=== PATIENT | female | born 1960 | race Caucasian/White ===

== ENCOUNTER 2020-02-20 05:57 | Inpatient (IN) | payer SELFPAY ==
[2020-02-20] VITALS (23 sets, daily range): BP systolic 95–165; BP diastolic 51–103
[~2020-02-20] VITALS: Ht 168 cm; Wt 94.6 kg
[~2020-02-20 05:57] MED LIST: ASP81TEC PO; LORA10TA76 PO; SEASONAL ALLERGY MED
--- NOTE | 2020-02-20 06:02 | ED Dyspnea ---
General Stated Complaint: SOB,WHEEZING Source of Information: Patient Exam Limitations: No Limitations History of Present Illness Date Seen by Provider: Feb 20, 2020 Time Seen by Provider: 06:02 Initial Comments 59-year-old female presents with shortness of breath. Patient reports shortness of breath has been going on for 2 weeks and has been worsening. Patient has had increasing leg swelling for 2 weeks. When EMS arrived patient's oxygen was in the mid 70s. She was placed on a nonrebreather and oxygen increased to the mid- 90s. He has some wheezing. She denies any fevers chills. Patient roommate works at [employer] however has been tested negative for COVID. Patient's history of present illness is limited based on her respiratory distress. Allergies and Home Medications Allergies Coded Allergies: No Known Drug Allergies (Verified , 01/22/09) Home Medications Loratadine 10 Mg Tablet, 10 MG PO DAILY PRN for ALLERGIES, (Reported) NEEDED FOR ALLERGIES Patient Home Medication List Home Medication List Reviewed: Yes Review of Systems Review of Systems Constitutional: No chills, No fever; weight gain EENTM: no symptoms reported Respiratory: cough, short of breath, wheezing Cardiovascular: No chest pain; edema Gastrointestinal: no symptoms reported Musculoskeletal: other (3+ edema ) Skin: no symptoms reported Past Rtxluna-Qxqain-Vvzikc Hx Past Med/Social Hx: Reviewed Nursing Past Med/Soc Hx Past Medical History Reproductive Disorders: Yes (CERVICAL CANCER) Sexually Transmitted Disease: No Uterine Physical Exam Vital Signs Vital Signs - First Documented 02/20/20 05:58 Temp 35.8 Pulse 88 Resp 41 B/P (MAP) 168/100 (122) Pulse Ox 90 O2 Delivery Non Rebreather O2 Flow Rate 15.00 Capillary Refill : Height, Weight, BMI Height: 5'6.00" Weight: 144lbs. 5.0oz. 65.820431wm; BMI Method:Stated General Appearance: Moderate Distress, Obese HEENT: PERRL/EOMI, Moist Mucous Membranes Neck: Full Range of Motion Respiratory: Decreased Breath Sounds, Wheezing (diffuse ) Cardiovascular: Tachycardia Gastrointestinal: Distended Extremity: Normal Range of Motion, Swelling (3+ edema ) Neurologic/Psychiatric: Alert, Oriented x3, No Motor/Sensory Deficits Skin: Other (venous stasis changes ) Focused Exam Lactate Level 02/20/20 06:00: Lactic Acid Level 1.77 Lactic Acid Level Laboratory Tests Test 02/20/20 06:00 Lactic Acid Level 1.77 MMOL/L (0.50-2.00) Progress/Results/Core Measures Results/Orders Lab Results Laboratory Tests Test 02/20/20 06:00 02/20/20 06:20 02/20/20 06:40 02/20/20 06:41 Range/Units White Blood Count 21.8 H 4.3-11.0 10^3/uL Red Blood Count 5.01 4.35-5.85 10^6/uL Hemoglobin 14.9 11.5-16.0 G/DL Hematocrit 49 35-52 % Mean Corpuscular Volume 97 80-99 FL Mean Corpuscular Hemoglobin 30 25-34 PG Mean Corpuscular Hemoglobin Concent 31 L 32-36 G/DL Red Cell Distribution Width 20.1 H 10.0-14.5 % Platelet Count 182 130-400 10^3/uL Mean Platelet Volume 9.5 7.4-10.4 FL Neutrophils (%) (Auto) 82 H 42-75 % Lymphocytes (%) (Auto) 8 L 12-44 % Monocytes (%) (Auto) 10 0-12 % Eosinophils (%) (Auto) 0 0-10 % Basophils (%) (Auto) 0 0-10 % Neutrophils # (Auto) 17.8 H 1.8-7.8 X 10^3 Lymphocytes # (Auto) 1.8 1.0-4.0 X 10^3 Monocytes # (Auto) 2.1 H 0.0-1.0 X 10^3 Eosinophils # (Auto) 0.1 0.0-0.3 10^3/uL Basophils # (Auto) 0.0 0.0-0.1 10^3/uL Neutrophils % (Manual) 83 % Lymphocytes % (Manual) 1 % Monocytes % (Manual) 10 % Eosinophils % (Manual) 1 % Band Neutrophils 5 % Nucleated Red Blood Cells 4 Polychromasia SLIGHT Anisocytosis SLIGHT Prothrombin Time 16.1 H 12.2-14.7 SEC INR Comment 1.2 0.8-1.4 Activated Partial Thromboplast Time 36 H 24-35 SEC Fibrinogen 438 221-496 MG/DL Sodium Level 109 *L 135-145 MMOL/L Potassium Level 5.8 H 3.6-5.0 MMOL/L Chloride Level 72 L 98-107 MMOL/L Carbon Dioxide Level 27 21-32 MMOL/L Anion Gap 10 5-14 MMOL/L Blood Urea Nitrogen 11 7-18 MG/DL Creatinine 0.55 L 0.60-1.30 MG/DL Estimat Glomerular Filtration Rate > 60 BUN/Creatinine Ratio 20 Glucose Level 111 H 70-105 MG/DL Lactic Acid Level 1.77 0.50-2.00 MMOL/L Calcium Level 8.7 8.5-10.1 MG/DL Corrected Calcium 9.3 8.5-10.1 MG/DL Total Bilirubin 1.4 H 0.1-1.0 MG/DL Aspartate Amino Transf (AST/SGOT) 42 H 5-34 U/L Alanine Aminotransferase (ALT/SGPT) 16 0-55 U/L Alkaline Phosphatase 247 H 40-136 U/L Lactate Dehydrogenase 292 H 125-220 U/L Troponin I 0.066 H <0.028 NG/ML C-Reactive Protein High Sensitivity 14.58 H 0.00-0.50 MG/DL B-Type Natriuretic Peptide 918.5 H <100.0 PG/ML Total Protein 7.3 6.4-8.2 GM/DL Albumin 3.3 3.2-4.5 GM/DL Blood Gas Puncture Site LEFT RADIAL Blood Gas Patient Temperature 35.8 Arterial Blood pH 7.35 L 7.37-7.43 Arterial Blood Partial Pressure CO2 58 H 35-45 MMHG Arterial Blood Partial Pressure O2 97 H 79-93 MMHG Arterial Blood HCO3 32 H 23-27 MMOL/L Arterial Blood Total CO2 33.7 H 21.0-31.0 MMOL/L Arterial Blood Oxygen Saturation 98 94-100 % Arterial Blood Base Excess 6.2 H -2.5-2.5 MMOL/L Benjie Test YES-POS Blood Gas Ventilator Setting NO Blood Gas Inspired Oxygen 100% Urine Opiates Screen POSITIVE H NEGATIVE Urine Oxycodone Screen NEGATIVE NEGATIVE Urine Methadone Screen NEGATIVE NEGATIVE Urine Propoxyphene Screen NEGATIVE NEGATIVE Urine Barbiturates Screen NEGATIVE NEGATIVE Ur Tricyclic Antidepressants Screen NEGATIVE NEGATIVE Urine Phencyclidine Screen NEGATIVE NEGATIVE Urine Amphetamines Screen NEGATIVE NEGATIVE Urine Methamphetamines Screen NEGATIVE NEGATIVE Urine Benzodiazepines Screen NEGATIVE NEGATIVE Urine Cocaine Screen NEGATIVE NEGATIVE Urine Cannabinoids Screen NEGATIVE NEGATIVE Urine Color YELLOW Urine Clarity CLEAR Urine pH 6.0 5-9 Urine Specific Preston 1.020 1.016-1.022 Urine Protein NEGATIVE NEGATIVE Urine Glucose (UA) NEGATIVE NEGATIVE Urine Ketones NEGATIVE NEGATIVE Urine Nitrite NEGATIVE NEGATIVE Urine Bilirubin NEGATIVE NEGATIVE Urine Urobilinogen 1.0 < = 1.0 MG/DL Urine Leukocyte Esterase NEGATIVE NEGATIVE Urine RBC (Auto) NEGATIVE NEGATIVE Urine RBC NONE /HPF Urine WBC RARE /HPF Urine Squamous Epithelial Cells 0-2 /HPF Urine Crystals NONE /LPF Urine Bacteria NEGATIVE /HPF Urine Casts NONE /LPF Urine Mucus NEGATIVE /LPF Urine Culture Indicated NO My Orders Orders - GARY,DOUG L DO Vital Signs: Every 4 Hours (Or (02/20/20 06:02) Monitor-Rhythm Ecg Trace Only (02/20/20 06:02) Cbc With Automated Diff (02/20/20 06:02) Comprehensive Metabolic Panel (02/20/20 06:02) Ferritin (02/20/20 06:02) LDH (02/20/20 06:02) Hs C Reactive Protein (02/20/20 06:02) Troponin I (02/20/20 06:02) Lactic Acid Analyzer (02/20/20 06:02) Protime With Inr (02/20/20 06:02) Partial Thromboplastin Time (02/20/20 06:02) Fibrinogen (02/20/20 06:02) Ekg Tracing (02/20/20 06:02) Chest 1 View, Ap/Pa Only (02/20/20 06:02) Arterial Blood Gas (02/20/20 06:02) Albuterol/Ipra Inhalation Soln (Duoneb I (02/20/20 06:15) Bipap (Bilevel) Set Up (02/20/20 06:02) BNP (02/20/20 06:02) Nitroglycerin 0.4 Mg Btl 25's (Nitrostat (02/20/20 06:15) Furosemide Injection (Lasix Injection) (02/20/20 06:15) Coronavirus Sars-Cov-2 So 2018 (02/20/20 06:06) Manual Differential (02/20/20 06:00) Dexamethasone Injection (Decadron Inject (02/20/20 06:45) Ceftriaxone For Iv Use (Rocephin For I (02/20/20 06:32) Sodium Chloride 3% (Hypertonic Sodium Ch (02/20/20 07:00) Ed Iv/Invasive Line Start (02/20/20 06:47) Catheter(Urinary) Insert & Ass 03,15 (02/20/20 06:47) Ua Culture If Indicated (02/20/20 06:47) Abdomen/Kub 1view (02/20/20 07:06) Medications Given in ED Current Medications Medications Dose Ordered Sig/Kristofer Route Start Time Stop Time Status Last Admin Dose Admin Albuterol/ Ipratropium 3 ml ONCE PRN IH 02/20/20 06:15 02/20/20 08:21 DC 02/20/20 06:15 3 ML Dexamethasone Sodium Phosphate 10 mg ONCE ONCE IV 02/20/20 06:45 02/20/20 06:46 DC 02/20/20 06:49 10 MG Furosemide 40 mg ONCE ONCE IVP 02/20/20 06:15 02/20/20 06:16 DC 02/20/20 06:15 40 MG Nitroglycerin 0.4 mg ONCE ONCE SL 02/20/20 06:15 02/20/20 06:16 DC 02/20/20 06:15 0.4 MG Vital Signs/I&O 02/20/20 02/20/20 02/20/20 02/20/20 05:58 06:15 06:30 06:42 Temp 35.8 Pulse 88 92 96 89 Resp 41 34 32 40 B/P (MAP) 168/100 (122) 165/101 (122) 136/80 (98) Pulse Ox 90 95 97 97 O2 Delivery Non Rebreather Non Rebreather NIV Bilevel O2 Flow Rate 15.00 15.00 100.00 90.00 02/20/20 02/20/20 02/20/20 02/20/20 06:45 07:00 07:15 07:30 Pulse 89 91 87 85 Resp 30 32 31 16 B/P (MAP) 137/75 (95) 126/91 (103) 122/74 (90) 120/61 (80) Pulse Ox 96 97 98 97 O2 Delivery NIV Bilevel NIV Bilevel NIV Bilevel Room Air O2 Flow Rate 90.00 90.00 02/20/20 02/20/20 07:45 08:00 Pulse 88 92 Resp 18 16 B/P (MAP) 139/103 (115) 134/70 (91) Pulse Ox 97 98 O2 Delivery NIV Bilevel NIV Bilevel Progress Progress Note : Time: 08:00 Progress Note Patient with severe hypo natremia along with respiratory distress, CHF. Patient to be admitted to the ICU on BiPAP, we will give her a small dose of 3% saline along with some Lasix. Patient was transferred in stable but critical condition. Initial ECG Impression Date: Feb 20, 2020 Initial ECG Impression Time: 06:38 Initial ECG Rhythm: Normal Sinus Initial ECG Impression: Nonspecific Changes Diagnostic Imaging Diagonstic Imaging: Xray Plain Films/CT/US/NM/MRI: chest Comments [facility] [place] NAME: ADOLPH LEON [facility] REC#: [id number] PT STATUS: REG ER : 1960 PHYSICIAN: DOUG GARY DO ADMIT DATE: 02/20/20/ER Draft Date of Exam:02/20/20 CHEST 1 VIEW, AP/PA ONLY INDICATION: COVID-19 Portable chest shows cardiomegaly with vascular congestion. There are Zainab B lines present. There is a right-sided effusion. All of these represent a change from a prior study from 11/27/2013 and have the appearance consistent with congestive failure. COVID-19 can cause interstitial infiltrates and effusions and follow-up is recommended. IMPRESSION: There is cardiomegaly with mild vascular congestion. There are interstitial infiltrates and a right-sided effusion with differential as described. Report was faxed to Chris Jenkins/RN Infection Control [facility] by ben at 6:47AM. Reviewed: Reviewed by Me, Reviewed/Discussed Departure Communication (Admissions) Time/Spoke to Admitting Phy: 08:00 Okay to admit to ICU, consult Time/Spoke to Consulting Phy: 08:[address] aCtalan and made him aware of patient in ICU Impression Primary Impression: Acute respiratory failure with hypoxia Additional Impressions: Congestive heart failure Qualified Codes: I50.9 - Heart failure, unspecified Anasarca Disposition: ADMITTED INPATIENT Condition: Critical Admissions Decision to Admit Reason: Admit from ER (General) Decision to Admit/Date: Feb 20, 2020 Time/Decision to Admit Time: 08:00 Departure-Patient Inst. Referrals: NO,LOCAL PHYSICIAN (PCP/Family) Primary Care Physician DOUG GARY DO Feb 20, 2020 06:02
--- OUTSIDE RECORDS SUMMARY | 2020-02-20 06:07 | XMS REPORT ---
Author Author Katerine Winchester Doctor Organization [facility] Address Unknown Phone Unavailable Care Team Providers Care Knit Tubing Dyer Name Role Phone Migration, Doctor Unavailable Unavailable PROBLEMS Type Condition ICD9-CM Code [id number] Code Onset Dates Condition S tatus SNOMED Code Problem Unspecified essential hypertension 401.9 Active 25785240 Problem Nondependent tobacco use disorder 305.1 Active 762710554 Problem Personal history of noncompliance with medical treatment Z91.19 Active 8776508 Problem Alcohol abuse F10.10 Active 253205 05 Problem Unspecified cerebral artery occlusion with cerebral in farction 434.91 Active 949451426999873 Problem Chronic hepatitis C without hepatic coma B18.2 Active 595365262 Problem Personal history of noncompl iance with medical treatment, presenting hazards to health V15.81 Active 678906184 Problem History of cerebral infarction Z86.73 Active 258353103 Problem Nondependent tobacco use disorder Z72.0 Active 16739367 Problem Essential hypertension I10 Active 00291417 Problem Hyperlipidemia E78.5 Active 79892 004 ALLERGIES No Information ENCOUNTERS Encounter Location Date Diagnosis [facility] [address] [id number] [place] [address] December, [facility] [address] [id number] [place] [address] December, Essential hypertension I10 ; Hyperlipidemia E78.5 ; Chronic hepatitis C without hepatic coma B18.2 and Alcohol abuse F10.10 [facility] [address] [id number] [place] [address] December, Essential hypertension I10 and Hyperlipidemia E78.5 [facility] AG[facility] [address] [id number] [place] [id number] Oct, [facility] [address] [id number] [place] [address] Oct, Elevated glucose R73.09 and Elevated liver function tests R94.5 [facility] [address] [address] 16 Oct, 2016 Essential hypertension I10 and History o f cerebral infarction Z86.73 [facility] [address] [id number] [place] [address] Apr, Essential hypertension I10 ; Nondependent tobacco use disorder Z72.0 ; History of cerebral infarction Z86.73 ; Personal history of noncompliance with medical treatment Z91.19 and Hyperlipidemia E78.5 [facility] REYESMISHA [address] [id number] [place] [address] Mar, [facility] [address] [id number] [place] [address] Mar, [facility] [address] [id number] [place] [address] Mar, [place] [address] [address] Jul, Blood glucose elevated R73.9 [place] [address] [address] Jul, Essential hypertension I10 ; Nondependen t tobacco use disorder Z72.0 ; History of cerebral infarction Z86.73 ; Personal history of noncompliance with medical treatment Z91.19 and Hyperlipidemia E78.5 [place] [address] [address] Jan, Unspecified essential hypertension 401.9 and Personal history of noncompliance with medical treatment, presenting hazards to health V15.81 [place] [address] [address] Nov, [place] [address] [address] Nov, [place] [address] [address] Feb, [place] [address] [address] Feb, [place] [address] [address] December, [facility] [address] [id number] [place] [address] December, [facility] [address] [id number] [place] [address] Aug, [facility] [address] [id number] [place] [address] Aug, [facility] [address] [id number] [place] [address] Jul, IMMUNIZATIONS No Known Immunizations SOCIAL HISTORY Never Assessed REASON FOR VISIT PLAN OF CARE VITAL SIGNS Height 66 in 2014-01-04 Weight 152.06 lbs 2014-01-04 Temperature 98.7 degrees Fahrenheit 2014-01-04 Heart Rate 88 bpm 2014-01-04 Respiratory Rate 20 2014-01-04 Blood pressure systolic 148 mmHg 2014-01-04 Blood pressure diastolic 82 mmHg 2014-01-04 MEDICATIONS Unknown Medications RESULTS No Results PROCEDURES No Known procedures INSTRUCTIONS MEDICATIONS ADMINISTERED No Known Medications MEDICAL (GENERAL) HISTORY Type Description Date Medical History hypertension Medical History tobaccoism Medical History Uterine/cervical cancer Medical History Stroke Medical History hepatitis C Surgical History tonsillectomy Surgical History hysterectomy Surgical History orthopedic surgery-Rt wrist rx with pins & left ankle Hospitalization History Stroke syndrome--Pt left AMA after 2 days 11-27-2013 Hospitalization History past surgeries Hospitalization History child
--- OUTSIDE RECORDS SUMMARY | 2020-02-20 06:07 | XMS REPORT ---
Author Author Katerine Winchester Doctor Organization [facility] Address Unknown Phone Unavailable Care Team Providers Care Service Desk Associate Name Role Phone Migration, Doctor Unavailable Unavailable PROBLEMS Type Condition ICD9-CM Code [id number] Code Onset Dates Condition S tatus SNOMED Code Problem Unspecified essential hypertension 401.9 Active 81594199 Problem Nondependent tobacco use disorder 305.1 Active 969738997 Problem Personal history of noncompliance with medical treatment Z91.19 Active 2728749 Problem Alcohol abuse F10.10 Active 406161 05 Problem Unspecified cerebral artery occlusion with cerebral in farction 434.91 Active 681160589302325 Problem Chronic hepatitis C without hepatic coma B18.2 Active 068952741 Problem Personal history of noncompl iance with medical treatment, presenting hazards to health V15.81 Active 596574857 Problem History of cerebral infarction Z86.73 Active 338258449 Problem Nondependent tobacco use disorder Z72.0 Active 70917591 Problem Essential hypertension I10 Active 32216162 Problem Hyperlipidemia E78.5 Active 49743 004 ALLERGIES No Information ENCOUNTERS Encounter Location Date Diagnosis [facility] [address] [id number] [place] [address] December, [facility] [address] [id number] [place] [address] December, Essential hypertension I10 ; Hyperlipide carey E78.5 ; Chronic hepatitis C without hepatic coma B18.2 and Alcohol abuse F10.10 [facility] [address] [id number] [place] [address] December, Essential hypertension I10 and Hyperlipi demia E78.5 [facility] [address] [id number] [place] [id number] Oct, [facility] [address] [id number] [place] [address] Oct, Elevated glucose R73.09 and Elevated helena er function tests R94.5 [facility] [address] [facility] [id number] [address] [place] [address] 16 Oct, 2016 Essential hypertension I10 a nd History of cerebral infarction Z86.73 [facility] [place] [address] [id number] [place] [address] 07 Apr, 2016 Essential hypertension I10 ; Nondependen t tobacco use disorder Z72.0 ; History of cerebral infarction Z86.73 ; Personal history of noncompliance with medical treatment Z91.19 and Hyperlipidemia E78.5 [facility] [address] [id number] [place] [address] Mar, [facility] [place] [address] [id number] [place] [address] Mar, [facility] [address] [id number] [place] [address] Mar, [place] [address] [place] [id number] [address] [place] [address] Jul, Blood glucose elevated R73.9 [place] [address] [facility] [id number] [address] [place] [address] 30 Jul, 2015 Essential hypertension I10 ; Nondependent tobacco use disorder Z72.0 ; History of cerebral infarction Z86.73 ; Personal history of noncompliance with medical treatment Z91.19 and Hyperlipidemia E78.5 [place] [address] [address] [facility] [id number] [address] [place] [address] Jan, Unspecified essential hypert ension 401.9 and Personal history of noncompliance with medical treatment, presenting hazards to health V15.81 [place] [address] [address] [facility] [id number] [address] [place] [address] Nov, [place] [address] [address] [facility] [id number] [address] [place] [address] Nov, [place] [address] [address] [place] [id number] [address] [place] [address] Feb, [place] [address] [address] [place] [id number] [address] [place] [phone] Feb, [facility] [address] [facility] [id number] [address] [place] [address] December, [facility] [address] [facility] [id number] [address] [place] [address] December, [facility] [address] [facility] [id number] [address] [place] [address] Aug, [facility] [address] [facility] [id number] [address] [place] [phone] Aug, [facility] [address] [facility] [id number] [address] [place] [phone] Jul, IMMUNIZATIONS No Known Immunizations SOCIAL HISTORY Never Assessed REASON FOR VISIT [facility] PLAN OF CARE VITAL SIGNS MEDICATIONS Unknown Medications RESULTS No Results PROCEDURES [...]
--- OUTSIDE RECORDS SUMMARY | 2020-02-20 06:07 | XMS REPORT ---
Author Author Katerine Winchester Doctor Organization [facility] Address Unknown Phone Unavailable Care Team Providers Care Criminal Defense Lawyer Name Role Phone Migration, Doctor Unavailable Unavailable PROBLEMS Type Condition ICD9-CM Code [id number] Code Onset Dates Condition S tatus SNOMED Code Problem Unspecified essential hypertension 401.9 Active 23434022 Problem Nondependent tobacco use disorder 305.1 Active 440802813 Problem Personal history of noncompliance with medical treatment Z91.19 Active 6783815 Problem Alcohol abuse F10.10 Active 708429 05 Problem Unspecified cerebral artery occlusion with cerebral in farction 434.91 Active 950528855733017 Problem Chronic hepatitis C without hepatic coma B18.2 Active 382511316 Problem Personal history of noncompl iance with medical treatment, presenting hazards to health V15.81 Active 324183950 Problem History of cerebral infarction Z86.73 Active 376940570 Problem Nondependent tobacco use disorder Z72.0 Active 57971092 Problem Essential hypertension I10 Active 94057979 Problem Hyperlipidemia E78.5 Active 09962 004 ALLERGIES No Information ENCOUNTERS Encounter Location Date Diagnosis [facility] [address] [id number] [place] [address] December, [facility] [address] [id number] [place] [address] December, Essential hypertension I10 ; Hyperlipidemia E78.5 ; Chronic hepatitis C without hepatic coma B18.2 and Alcohol abuse F10.10 [facility] [address] [id number] [place] [address] December, Essential hypertension I10 and Hyperlipidemia E78.5 [facility] AGUILERA [address] [id number] [place] [id number] Oct, [facility] [address] [id number] [place] [address] Oct, Elevated glucose R73.09 and Elevated liver function tests R94.5 [facility] [address] [address] 16 Oct, 2016 Essential hypertension I10 and History o f cerebral infarction Z86.73 [facility] ERIC [address] [id number] [place] [address] Apr, Essential hypertension I10 ; Nondependent tobacco use disorder Z72.0 ; History of cerebral infarction Z86.73 ; Personal history of noncompliance with medical treatment Z91.19 and Hyperlipidemia E78.5 [facility] REYESMISHA [address] [id number] [place] [address] Mar, [facility] ERIC [address] [id number] [place] [address] Mar, [facility] ERIC [address] [id number] [place] [address] Mar, [place] [address] [address] Jul, Blood glucose elevated R73.9 [place] [address] [address] Jul, Essential hypertension I10 ; Nondependen t tobacco use disorder Z72.0 ; History of cerebral infarction Z86.73 ; Personal history of noncompliance with medical treatment Z91.19 and Hyperlipidemia E78.5 [place] [address] [address] Jan, Unspecified essential hypertension 401.9 and Personal history of noncompliance with medical treatment, presenting hazards to health V15.81 [place] [address] [address] Nov, [place] [address] [address] Nov, [place] [address] [address] Feb, [place] [address] [address] Feb, [place] [address] [address] December, [facility] [address] [id number] [place] [address] December, [facility] [address] [id number] [place] [address] Aug, [facility] [address] [id number] [place] [address] Aug, [facility] [address] [id number] [place] [address] Jul, IMMUNIZATIONS No Known Immunizations SOCIAL HISTORY Never Assessed REASON FOR VISIT PLAN OF CARE VITAL SIGNS MEDICATIONS Unknown [...]
--- OUTSIDE RECORDS SUMMARY | 2020-02-20 06:07 | XMS REPORT ---
Author Author Katerine Winchester Doctor Organization [facility] Address Unknown Phone Unavailable Care Team Providers Care Career Technology Teacher Name Role Phone Migration, Doctor Unavailable Unavailable PROBLEMS Type Condition ICD9-CM Code [id number] Code Onset Dates Condition S tatus SNOMED Code Problem Unspecified essential hypertension 401.9 Active 08839160 Problem Nondependent tobacco use disorder 305.1 Active 040216860 Problem Personal history of noncompliance with medical treatment Z91.19 Active 2352821 Problem Alcohol abuse F10.10 Active 880543 05 Problem Unspecified cerebral artery occlusion with cerebral in farction 434.91 Active 702043949872590 Problem Chronic hepatitis C without hepatic coma B18.2 Active 697440015 Problem Personal history of noncompl iance with medical treatment, presenting hazards to health V15.81 Active 400386505 Problem History of cerebral infarction Z86.73 Active 197259417 Problem Nondependent tobacco use disorder Z72.0 Active 11632037 Problem Essential hypertension I10 Active 40801483 Problem Hyperlipidemia E78.5 Active 56392 004 ALLERGIES No Information ENCOUNTERS Encounter Location Date Diagnosis [employer] ER[address] [id number] [place] [address] December, [employer] [address] [id number] [place] [address] December, Essential hypertension I10 ; Hyperlipide carey E78.5 ; Chronic hepatitis C without hepatic coma B18.2 and Alcohol abuse F10.10 [facility] [address] [id number] [place] [address] December, Essential hypertension I10 and Hyperlipi demia E78.5 [facility] [employer] [facility] [address] [id number] [place] [id number] Oct, [facility] [address] [id number] [place] [address] Oct, Elevated glucose R73.09 and Elevated helena er function tests R94.5 [facility] [address] [facility] [id number] [address] [place] [address] 16 Oct, 2016 Essential hypertension I10 a nd History of cerebral infarction Z86.73 [facility] [place] [address] [id number] [place] [address] 07 Apr, 2016 Essential hypertension I10 ; Nondependen t tobacco use disorder Z72.0 ; History of cerebral infarction Z86.73 ; Personal history of noncompliance with medical treatment Z91.19 and Hyperlipidemia E78.5 [facility] [address] [id number] [place] [address] Mar, [facility] [place] [address] [id number] [place] [address] Mar, [facility] [address] [id number] [place] [address] Mar, [place] [address] [place] [id number] [address] [place] [address] Jul, Blood glucose elevated R73.9 [place] [address] [facility] [id number] [address] [place] [address] 30 Jul, 2015 Essential hypertension I10 ; Nondependent tobacco use disorder Z72.0 ; History of cerebral infarction Z86.73 ; Personal history of noncompliance with medical treatment Z91.19 and Hyperlipidemia E78.5 [place] [address] [facility] [id number] [address] [place] [address] Jan, Unspecified essential hypert ension 401.9 and Personal history of noncompliance with medical treatment, presenting hazards to health V15.81 [place] [address] [facility] [id number] [address] [place] [address] Nov, [place] [address] [facility] [id number] [address] [place] [address] Nov, [place] [address] [place] [id number] [address] [place] [address] Feb, [place] [address] [place] [id number] [address] [place] [address] Feb, [facility] [address] [facility] [id number] [address] [place] [address] December, [facility] [address] [facility] [id number] [address] [place] [address] December, [facility] [address] [facility] [id number] [address] [place] [address] Aug, [facility] [address] [facility] [id number] [address] [place] [address] Aug, [facility] [address] [facility] [id number] [address] [place] [address] Jul, IMMUNIZATIONS No Known Immunizations SOCIAL HISTORY Never Assessed REASON FOR VISIT [facility] [place] VITAL SIGNS MEDICATIONS Medication Instructions Dosage Frequency Start Date End Date Duration S tatus Toprol XL 25 mg take 1 tablet (25 mg) by oral route once d aily December, Active Lipitor 20 mg 1 tablet by Oral route 1 time per day at HS December, Active Aspirin 81 mg 1 tablet by Oral route 1 time per day 16 M 2013 Active RESULTS No Results PROCEDURES No Known procedures [...]
--- OUTSIDE RECORDS SUMMARY | 2020-02-20 06:08 | XMS REPORT ---
Author Author Katerine ALMANZA [facility] Address [address] [place] [address] Care Team Providers Care Plc Engineer Name Role Phone DELIO ALMANZA Unavailable PROBLEMS Type Condition ICD9-CM Code [id number] Code Onset Dates Condition S tatus SNOMED Code Problem Unspecified essential hypertension 401.9 Active 57089063 Problem Personal history of noncompliance with medical treatment Z91.19 Active 8791257 Problem Nondependent tobacco use disorder 305.1 Active 934794523 Problem Personal history of noncompl iance with medical treatment, presenting hazards to health V15.81 Active 273547088 Problem Unspecified cerebral artery occlusion with cerebral in farction 434.91 Active 367542498550615 Problem Chronic hepatitis C without hepatic coma B18.2 Active 008697762 Problem Alcohol abuse F10.10 Active 806739 05 Problem Nondependent tobacco use disorder Z72.0 Active 14231503 Problem History of cerebral infarction Z86.73 Active 028005169 Problem Hyperlipidemia E78.5 Active 45452 004 Problem Essential hypertension I10 Active 21045741 ALLERGIES No Information SOCIAL HISTORY Never Assessed PLAN OF CARE VITAL SIGNS MEDICATIONS Unknown Medications RESULTS Name Result Date Reference Range TSH 2016-11-04 TSH 1.310 0.450-4.500 CBC 2016-11-04 WBC 10.6 3.4-10.8 RBC 4.79 3.77-5.28 Hemoglobin 15.5 11.1-15.9 Hematocrit 47.8 34.0-46.6 MCV 100 79-97 MCH 32.4 26.6-33.0 MCHC 32.4 31.5-35.7 RDW 13.6 12.3-15.4 Platelets 356 150-379 Neutrophils 74 Lymphs 16 Monocytes 8 Eos 2 Basos 0 Neutrophils (Absolute) 7.8 1.4-7.0 Lymphs (Absolute) 1.7 0.7-3.1 Monocytes(Absolute) 0.8 0.1-0.9 Eos (Absolute) 0.2 0.0-0.4 Baso (Absolute) 0.0 0.0-0.2 Immature Granulocytes 0 Immature Grans (Abs) 0.0 0.0-0.1 A1C 2016-11-04 Hemoglobin A1c 5.7 4.8-5.6 LIPID PANEL 2016-11-04 Cholesterol, Total 231 100-199 Triglycerides 137 0-149 HDL Cholesterol 90 >39 VLDL Cholesterol Luke 27 5-40 LDL Cholesterol Calc 114 0-99 CMP 2016-11-04 Glucose, Serum 115 65-99 BUN 9 6-24 Creatinine, Serum 0.62 0.57-1.00 eGFR If NonAfricn Am 102 >59 eGFR If Africn Am 117 >59 BUN/Creatinine Ratio 15 9-23 Sodium, Serum 138 134-144 Potassium, Serum 4.7 3.5-5.2 Chloride, Serum 95 96-106 Carbon Dioxide, Total 22 18-29 Calcium, Serum 9.8 8.7-10.2 Protein, Total, Serum 8.0 6.0-8.5 Albumin, Serum 4.4 3.5-5.5 Globulin, Total 3.6 1.5-4.5 A/G Ratio 1.2 1.2-2.2 Bilirubin, Total 0.4 0.0-1.2 Alkaline Phosphatase, S 144 39-117 AST (SGOT) 186 0-40 ALT (SGPT) 161 0-32 HEPATITIS PROFILE 2016-11-04 Hep A Ab, IgM Negative Negative HBsAg Screen Negative Negative Hep B Core Ab, IgM Negative Negative Hep C Virus Ab >11.0 0.0-0.9 Written Authorization 2016-11-04 Written Authorization PROCEDURES Procedure Date Ordered Result Body Site ASSAY THYROID STIM HORMONE November 04, 2016 COMPLETE CBC W/AUTO DIFF WBC November 04, 2016 COMPREHEN METABOLIC PANEL November 04, 2016 LIPID PANEL November 04, 2016 VENIPUNCT, ROUTINE* November 04, 2016 IMMUNIZATIONS No Known Immunizations MEDICAL (GENERAL) HISTORY Type Description Date Medical [...]
--- OUTSIDE RECORDS SUMMARY | 2020-02-20 06:08 | XMS REPORT ---
Author Author Katerine ALMANZA [facility] eClinicalWorks Address Unknown Phone Unavailable Care Team Providers Care Knife Cutter Name Role Phone DELIO ALMANZA CP Unavailable Allergies, Adverse Reactions, Alerts Substance Reaction Event Type N.K.D.A. Info Not Available Non Drug Allergy Problems Problem Type Condition Code Onset Dates Condition Statu s Assessment Nondependent tobacco use disorder Z72.0 Active Problem Unspecified essential hypertension 401.9 Active Assessment Essential hypertension I10 Activ e Problem Nondependent tobacco use disorder Z72.0 Active Problem History of cerebral infarction Z86.73 Active Problem Essential hypertension I10 Activ e Problem Nondependent tobacco use disorder 305.1 Active Problem Unspecified cerebral artery occlusion with cerebral in farction 434.91 Active Problem Personal history of noncompliance with medical treatme nt Z91.19 Active Problem Personal history of noncompl iance with medical treatment, presenting hazards to health V15.81 Active Assessment Hyperlipidemia E78.5 Active Assessment Personal history of noncompliance with medical treatme nt Z91.19 Active Assessment History of cerebral infarction Z86.73 Active Medications Medication Code System Code Instructions Start Date End Date Status Dosage Atorvastatin Calcium [facility] [address]-43 20 MG Orally Once a day TAKE ONE TABLET BY MOUTH AT BEDTIME Aspirin [facility] [address]-57 81 mg 1 tablet b y Oral route 1 time per day Toprol XL [facility] [address]-10 25 MG Orally Once a day TAKE ONE TABLET BY MOUTH DAILY Hydrocodone-Acetaminophen [facility] [address]-18 5-325 MG Orally every 6 hrs 1 tablet as needed Procedures Procedure Coding System Code Date Office Visit, Est Pt., Level 3 CPT-4 41538 S ept 2015 Vital Signs Date/Time: Apr 28, 2016 Cardiac Monitoring Heart Rate 84 bpm Weight 169.2 lbs Height 66 in BMI 27.31 Index Blood Pressure Diastolic 60 mmHg Blood Pressure Systolic 138 mmHg Results No Known Results Summary Purpose eClinicalWorks Submission
--- OUTSIDE RECORDS SUMMARY | 2020-02-20 06:08 | XMS REPORT ---
Author Author Katerine ALMANZA [facility] Address [address] [place] [address] Care Team Providers Care Catheter Finisher And Inspector Name Role Phone DELIO ALMANZA Unavailable PROBLEMS Type Condition ICD9-CM Code [id number] Code Onset Dates Condition S tatus SNOMED Code Problem Unspecified essential hypertension 401.9 Active 10696723 Problem Personal history of noncompliance with medical treatment Z91.19 Active 7080765 Problem Nondependent tobacco use disorder 305.1 Active 424132440 Problem Personal history of noncompl iance with medical treatment, presenting hazards to health V15.81 Active 972733698 Problem Unspecified cerebral artery occlusion with cerebral in farction 434.91 Active 588029918977304 Problem Chronic hepatitis C without hepatic coma B18.2 Active 672542150 Problem Alcohol abuse F10.10 Active 063550 05 Problem Nondependent tobacco use disorder Z72.0 Active 55390792 Problem History of cerebral infarction Z86.73 Active 414334413 Problem Hyperlipidemia E78.5 Active 21263 004 Problem Essential hypertension I10 Active 21068203 ALLERGIES No Information SOCIAL HISTORY Never Assessed PLAN OF CARE Activity Details Pending Test A1C Pending Test HEPATITIS PROFILE VITAL SIGNS MEDICATIONS Unknown Medications RESULTS No Results PROCEDURES Procedure Date Ordered Result Body Site ACUTE HEPATITIS PANEL November 04, 2016 GLYCATED HEMOGLOBIN TEST November 04, 2016 IMMUNIZATIONS No Known Immunizations [...]
--- OUTSIDE RECORDS SUMMARY | 2020-02-20 06:08 | XMS REPORT ---
Author Author Katerine ALMANZA [facility] Address [address] [place] [address] Care Team Providers Care Visual Merchandiser Name Role Phone DELIO ALMANZA Unavailable PROBLEMS Type Condition ICD9-CM Code HAQ97-[id number] Code Onset Dates Condition S tatus SNOMED Code Problem Unspecified essential hypertension 401.9 Active 96822964 Problem Personal history of noncompliance with medical treatment Z91.19 Active 9410583 Problem Nondependent tobacco use disorder 305.1 Active 686838795 Problem Personal history of noncompl iance with medical treatment, presenting hazards to health V15.81 Active 911054171 Problem Unspecified cerebral artery occlusion with cerebral in farction 434.91 Active 150091954411995 Problem Chronic hepatitis C without hepatic coma B18.2 Active 054253935 Problem Alcohol abuse F10.10 Active 099861 05 Problem Nondependent tobacco use disorder Z72.0 Active 81839312 Problem History of cerebral infarction Z86.73 Active 313499406 Problem Hyperlipidemia E78.5 Active 54600 004 Problem Essential hypertension I10 Active 58838639 ALLERGIES No Known Allergies SOCIAL HISTORY Never Assessed PLAN OF CARE Activity Details Follow Up 1 Year Reason:f/u htn VITAL SIGNS Height 66 in 2016-12-28 Weight 180.7 lbs 2016-12-28 Temperature 98.1 degrees Fahrenheit 2016-12-28 Heart Rate 100 bpm 2016-12-28 Respiratory Rate 20 2016-12-28 BMI 29.16 kg/m2 2016-12-28 Blood pressure systolic 142 mmHg 2016-12-28 Blood pressure diastolic 92 mmHg 2016-12-28 MEDICATIONS Medication Instructions Dosage Frequency Start Date End Date Duration S tatus Atorvastatin Calcium 20 mg Orally Once a day TAKE ONE TABL ET BY MOUTH AT BEDTIME 24h 30 Active Hydrocodone-Acetaminophen 5-325 MG Orally every 6 hrs 1 tablet as need ed 6h Active Aspirin 81 mg 1 tablet by Oral route 1 time per day Active Toprol XL 25 MG Orally Once a day TAKE ONE TABLET BY MOUTH DAILY 24h 30 Active RESULTS No Results PROCEDURES No Known procedures IMMUNIZATIONS No Known Immunizations MEDICAL (GENERAL) HISTORY [...]
--- OUTSIDE RECORDS SUMMARY | 2020-02-20 06:08 | XMS REPORT ---
Author Author Katerine ALMANZA [facility] eClinicalWorks Address Unknown Phone Unavailable Care Team Providers Care Dental Services Director Name Role Phone DELIO ALMANZA CP Unavailable Allergies No Known Allergies Problems Problem Type Condition Code Onset Dates Condition Statu s Problem Unspecified essential hypertension 401.9 Active Problem Nondependent tobacco use disorder Z72.0 Active [...] treatment, presenting hazards to health V15.81 Active Medications Medication Code System Code Instructions Start Date End Date Status Dosage Atorvastatin Calcium [facility] [address]-59 20 mg Orally Once a day TAKE ONE TABLET BY MOUTH AT BEDTIME Toprol XL [facility] [address]-48 25 MG Orally Once a day TAKE ONE TABLET BY MOUTH DAILY Results No Known Results Summary Purpose eClinicalWorks Submission
--- OUTSIDE RECORDS SUMMARY | 2020-02-20 06:08 | XMS REPORT ---
Author Author Katerine ALMANZA [facility] eClinicalWorks Address Unknown Phone Unavailable Care Team Providers Care Delivery Motorcycle Driver Name Role Phone DELIO ALMANZA CP Unavailable Allergies No Known Allergies Problems Problem Type Condition Code Onset Dates Condition Statu s Problem Unspecified essential hypertension 401.9 Active Assessment Blood glucose elevated R73.9 Activ e Problem Nondependent tobacco use disorder [...] presenting hazards to health V15.81 Active Medications No Known Medications Results No Known Results Summary Purpose eClinicalWorks Submission
--- OUTSIDE RECORDS SUMMARY | 2020-02-20 06:08 | XMS REPORT ---
Author Author Katerine ALMANZA [facility] eClinicalWorks Address Unknown Phone Unavailable Care Team Providers Care Gift Basket Packer Name Role Phone DELIO ALMANZA CP Unavailable [...] Instructions Start Date End Date Status Dosage Toprol XL [facility] [address]-50 25 MG Orally Once a day TAKE ONE TABLET BY MOUTH DAILY Hydrocodone-Acetaminophen [facility] [address]-78 5-325 MG Orally every 6 hrs 1 tablet as needed Atorvastatin Calcium [facility] [address]-73 20 MG Orally Once a day TAKE ONE TABLET BY MOUTH AT BEDTIME Aspirin [facility] [address]-08 81 mg January 04, 2014 1 tab let by Oral route 1 time per day Procedures Procedure Coding System Code Date COMPREHEN METABOLIC PANEL CPT-4 64464 Jul ASSAY THYROID STIM HORMONE CPT-4 66240 Jul 242014 COMPLETE CBC W/AUTO DIFF WBC CPT-4 04240 Aug 20, 2015 VENIPUNCT, ROUTINE* CPT-4 15774 Aug 20, 2015 LIPID PANEL CPT-4 65528 Aug 20, 2015 Office Visit, Est Pt., Level 3 CPT-4 77824 D 2014 Vital Signs Date/Time: Aug 20, 2015 Temperature 97.6 F Weight 168.8 lbs Height 66 in BMI 27.24 Index Blood Pressure Diastolic 100 mmHg Blood Pressure Systolic 160 mmHg Cardiac Monitoring Heart Rate 80 bpm Results No Known Results Summary Purpose eClinicalWorks Submission
--- OUTSIDE RECORDS SUMMARY | 2020-02-20 06:08 | XMS REPORT ---
Author Author Katerine ALMANZA [facility] Address [address] [place] [address] Care Team Providers Care Sand Car Worker Name Role Phone DELIO ALMANZA Unavailable PROBLEMS Type Condition ICD9-CM Code [id number] Code Onset Dates Condition S tatus SNOMED Code Problem Unspecified essential hypertension 401.9 Active 11686705 Problem Personal history of noncompliance with medical treatment Z91.19 Active 9267213 Problem Nondependent tobacco use disorder 305.1 Active 349259069 Problem Personal history of noncompl iance with medical treatment, presenting hazards to health V15.81 Active 556936326 Problem Unspecified cerebral artery occlusion with cerebral in farction 434.91 Active 504862047919092 Problem Chronic hepatitis C without hepatic coma B18.2 Active 647792068 Problem Alcohol abuse F10.10 Active 154133 05 Problem Nondependent tobacco use disorder Z72.0 Active 14228439 Problem History of cerebral infarction Z86.73 Active 627935349 Problem Hyperlipidemia E78.5 Active 20570 004 Problem Essential hypertension I10 Active 84813081 ALLERGIES No Information SOCIAL HISTORY Never Assessed [...]
--- OUTSIDE RECORDS SUMMARY | 2020-02-20 06:08 | XMS REPORT | Continuity of Care Document ---
Demographics Preferred Language Unknown Marital Status Unknown Taoist Affiliation Unknown Race Unknown Ethnic Group Unknown Author Organization Unknown Address Unknown Phone Unavailable Allergies There is no data. Medications There is no data. Problems Date Dx Coded Attending Type Code Diagnosis Diagnosed By 08/17/2011 LONA HUTCHINSON DO 466.0 BRONCHITIS, ACUTE 08/17/2011 LONA HUTCHISNON DO V65.42 COUNSELING - SMOKING CESSATION 01/04/2014 LONA HUTCHINSON DO 305.1 NONDEPENDENT TOBACCO USE DISORDER 01/04/2014 LONA HUTCHINSON DO 401.9 UNSPECIFIED ESSENTIAL HYPERTENSION 01/04/2014 LONA HUTCHINSON DO 434.91 CEREBRAL ARTERY OCCLUSION UNSPECIFIED WITH CEREBRAL INFARCTION 01/04/2014 LONA HUTCHINSON DO V15.81 PERSONAL HISTORY OF NONCOMPLIANCE WITH MEDICAL TREATMENT PRESENTING HAZARDS TO HEALTH Procedures There is no data. Results Test Result Range CBC With Differential/Platelet - 7 08:55 WBC 10.6 x10E3/uL 3.4-10.8 RBC 4.79 x10E6/uL 3.77-5.28 Hemoglobin 15.5 g/dL 11.1-15.9 Hematocrit 47.8 % 34.0-46.6 MCV 100 fL 79-97 MCH 32.4 pg 26.6-33.0 MCHC 32.4 g/dL 31.5-35.7 RDW 13.6 % 12.3-15.4 Platelets 356 x10E3/uL 150-379 Neutrophils 74 % Lymphs 16 % Monocytes 8 % Eos 2 % Basos 0 % Neutrophils (Absolute) 7.8 x10E3/uL 1.4- 7.0 Lymphs (Absolute) 1.7 x10E3/uL 0.7-3.1 Monocytes(Absolute) 0.8 x10E3/uL 0.1-0.9 Eos (Absolute) 0.2 x10E3/uL 0.0-0.4 Baso (Absolute) 0.0 x10E3/uL 0.0-0.2 Immature Granulocytes 0 % Immature Grans (Abs) 0.0 x10E3/uL 0.0-0. 1 Comp. Metabolic Panel (14) - 11/04/16 08 :55 Glucose, Serum 115 mg/dL 65-99 BUN 9 mg/dL 6-24 Creatinine, Serum 0.62 mg/dL 0.57-1.00 eGFR If NonAfricn Am 102 mL/min/1.73 >59 eGFR If Africn Am 117 mL/min/1.73 >5 9 BUN/Creatinine Ratio 15 9-23 Sodium, Serum 138 mmol/L 134-144 Potassium, Serum 4.7 mmol/L 3.5-5.2 Chloride, Serum 95 mmol/L 96-106 Carbon Dioxide, Total 22 mmol/L 18-29 Calcium, Serum 9.8 mg/dL 8.7-10.2 Protein, Total, Serum 8.0 g/dL 6.0-8.5 Albumin, Serum 4.4 g/dL 3.5-5.5 Globulin, Total 3.6 g/dL 1.5-4.5 A/G Ratio 1.2 1.2-2.2 Bilirubin, Total 0.4 mg/dL 0.0-1.2 Alkaline Phosphatase, S 144 IU/L 39-117 AST (SGOT) 186 IU/L 0-40 ALT (SGPT) 161 IU/L 0-32 Lipid Panel - 11/04/16 08:55 Cholesterol, Total 231 mg/dL 100-199 Triglycerides 137 mg/dL 0-149 HDL Cholesterol 90 mg/dL >39 VLDL Cholesterol Luke 27 mg/dL 5-40 LDL Cholesterol Calc 114 mg/dL 0-99 TSH - 11/04/16 08:55 TSH 1.310 uIU/mL 0.450-4.500 Encounters ACCT No. Visit Date/Time Discharge Status Pt. Type Provider Facility Loc./Unit Complaint [id number] 11/05/2016 09:08:00 Document Registration [id number] 01/04/2014 08:41:00 01/04/2014 23:59: 59 CLS Outpatient LONA HUTCHINSON DO [id number] 11/27/2013 10:44:00 014 09:55:00 DIS Inpatient
--- OUTSIDE RECORDS SUMMARY | 2020-02-20 06:08 | XMS REPORT ---
Author Author Katerine ALMANZA [facility] [employer] Address Unknown Phone Unavailable Care Team Providers Care Coat Presser Name Role Phone DELIO ALMANZA CP Unavailable [...]
[2020-02-20] MEDS ORDERED: RT-ALBUTEROL/IPRATROPIUM 3 ML (DUONEB) VIAL IH PRN (06:15)
[2020-02-20] MEDS ORDERED: NITROGLYCERIN 0.4 MG SL TABS BTL 25'S SL ONE (06:15)
[2020-02-20] MEDS ORDERED: FUROSEMIDE 40 MG/4 ML INJ (LASIX) IVP ONE (06:15)
[2020-02-20 06:27] LABS: ABG BASE EXCESS 6.2 MMOL/L (-2.5-2.5); ABG OXYGEN SATURATION 98 % (94-100); ABG PCO2 58 MMHG (35-45); ABG PH 7.35 (7.37-7.43); ABG PO2 97 MMHG (79-93); ABG TCO2 33.7 MMOL/L (21.0-31.0)
[2020-02-20 06:28] LABS: BASOPHILS % (AUTO) 0 % (0-10); EOSINOPHILS # (AUTO) 0.1 10^3/uL (0.0-0.3); EOSINOPHILS % (AUTO) 0 % (0-10); HEMATOCRIT 49 % (35-52); HEMOGLOBIN 14.9 G/DL (11.5-16.0); LYMPHOCYTES # (AUTO) 1.8 X 10^3 (1.0-4.0); LYMPHOCYTES % (AUTO) 8 % (12-44); MEAN CORPUSCULAR HEMOGLOBIN 30 PG (25-34); MEAN CORPUSCULAR HGB CONC 31 G/DL (32-36); MEAN CORPUSCULAR VOLUME 97 FL (80-99); MEAN PLATELET VOLUME 9.5 FL (7.4-10.4); MONOCYTES # (AUTO) 2.1 X 10^3 (0.0-1.0); MONOCYTES % (AUTO) 10 % (0-12); NEUTROPHILS # (AUTO) 17.8 X 10^3 (1.8-7.8); NEUTROPHILS % (AUTO) 82 % (42-75); PLATELET COUNT 182 10^3/uL (130-400); RED CELL DISTRIBUTION WIDTH 20.1 % (10.0-14.5); WHITE BLOOD COUNT 21.8 10^3/uL (4.3-11.0)
[2020-02-20 06:29] LABS: ALLENS TEST YES-POS; INSPIRED O2 100%; PATIENT TEMP 35.8; VENTILATOR NO
[2020-02-20] MEDS ORDERED: cefTRIAXone FOR IV USE 1,000 MG in WATER (STERILE) FOR INJECTION 10 ML IV STA (06:32)
[2020-02-20 06:37] LABS: ALBUMIN 3.3 GM/DL (3.2-4.5)
[2020-02-20 06:38] LABS: CHLORIDE 72 MMOL/L (98-107); POTASSIUM 5.8 MMOL/L (3.6-5.0)
[2020-02-20 06:39] LABS: CALCIUM 8.7 MG/DL (8.5-10.1)
[2020-02-20 06:40] LABS: GLUCOSE 111 MG/DL (70-105); TOTAL PROTEIN 7.3 GM/DL (6.4-8.2)
[2020-02-20 06:41] LABS: CARBON DIOXIDE 27 MMOL/L (21-32); INR 1.2 (0.8-1.4); PROTHROMBIN TIME PATIENT 16.1 SEC (12.2-14.7); SODIUM 109 MMOL/L (135-145)
--- NOTE | 2020-02-20 06:41 | NUR ---
COVID SWAB SENT
[2020-02-20 06:42] LABS: BILIRUBIN,TOTAL 1.4 MG/DL (0.1-1.0)
[2020-02-20 06:43] LABS: ALKALINE PHOSPHATASE 247 U/L (40-136)
[2020-02-20 06:44] LABS: CREATININE SERUM 0.55 MG/DL (0.60-1.30); GFR ESTIMATED > 60
[2020-02-20 06:45] LABS: BUN/CREATININE RATIO 20
[2020-02-20] MEDS ORDERED: DEXAMETHASONE 10 MG/ML (DECADRON) 1 ML VIAL IV ONE (06:45)
--- NOTE | 2020-02-20 06:46 | Diagnostic Imaging Report ---
INDICATION: COVID-19 Portable chest shows cardiomegaly with vascular congestion. There are Zainab B lines present. There is a right-sided effusion. All of these represent a change from a prior study from 11/27/2013 and have the appearance consistent with congestive failure. COVID-19 can cause interstitial infiltrates and effusions and follow-up is recommended. IMPRESSION: There is cardiomegaly with mild vascular congestion. There are interstitial infiltrates and a right-sided effusion with differential as described. Report was faxed to Chris Jenkins/[facility] by ben at 6:47AM. Dictated by: Dictated on workstation # [id number]
[2020-02-20 06:47] LABS: ALANINE AMINOTRANSFERASE 16 U/L (0-55)
[2020-02-20 06:53] LABS: BAND NEUTROPHILS 5 %; EOSINOPHILS % (MANUAL) 1 %; LYMPHOCYTES % (MANUAL) 1 %; MONOCYTES % (MANUAL) 10 %; NEUTROPHILS % (MANUAL) 83 %
[2020-02-20 06:54] LABS: ANISOCYTOSIS SLIGHT; NUCLEATED RED BLOOD CELLS 4; POLYCHROMASIA SLIGHT
[2020-02-20] MEDS: SODIUM CHLORIDE 3% 500 ML IV SCH ×2 (07:01→10:20)
[2020-02-20 07:14] LABS: BILIRUBIN,URINE NEGATIVE (NEGATIVE); CLARITY,URINE CLEAR; COLOR,URINE YELLOW; GLUCOSE, URINE (UA) NEGATIVE (NEGATIVE); KETONES,URINE NEGATIVE (NEGATIVE); LEUKOCYTE ESTERASE ,URINE NEGATIVE (NEGATIVE); NITRITE,URINE NEGATIVE (NEGATIVE); PROTEIN,URINE NEGATIVE (NEGATIVE)
[2020-02-20 07:23] LABS: BACTERIA,URINE NEGATIVE /HPF; SQUAMOUS EPITHELIAL CELL,UR 0-2 /HPF; WBC,URINE RARE /HPF
--- OUTSIDE RECORDS SUMMARY | 2020-02-20 08:16 | XMS REPORT | Continuity of Care Document ---
Demographics Preferred Language Unknown Marital Status Unknown Jainism Affiliation Unknown Race Unknown Ethnic Group Unknown Author Organization Unknown Address Unknown Phone Unavailable Allergies There is no data. Medications There is no data. Problems Date Dx Coded Attending Type Code Diagnosis Diagnosed By 08/17/2011 LONA HUTCHINSON DO 466.0 BRONCHITIS, ACUTE 08/17/2011 LONA HUTCHINSON DO V65.42 COUNSELING - SMOKING CESSATION 01/04/2014 [...] - 11/04/16 08:55 TSH 1.310 uIU/mL 0.450-4.500 Complete blood count (CBC) with automate d white blood cell (WBC) differential - 02/20/20 06:00 Blood leukocytes automated count (number/volume) 21.8 10*3/uL 4.3-11.0 Blood erythrocytes automated count (number/volume) 5.01 10*6/uL 4.35-5.85 Venous blood hemoglobin measurement (mass/volume) 14.9 g/dL 11.5-16.0 Blood hematocrit (volume fraction) 49 % 35-52 Automated erythrocyte mean corpuscular volume 97 [ foz_us] 80-99 Automated erythrocyte mean corpuscular h emoglobin (mass per erythrocyte) 30 pg 25-34 Automated erythrocyte mean corpuscular h emoglobin concentration measurement (mass/volume) 31 g/dL 32-36 Automated erythrocyte distribution width ratio 20. 1 % 10.0- 14.5 Automated blood platelet count (count/volume) 182 10*3/uL 130-400 Automated blood platelet mean volume measurement 9.5 [foz_us] 7.4-10.4 Automated blood neutrophils/100 leukocytes 82 % 42-75 Automated blood lymphocytes/100 leukocytes 8 % 12-44 Blood monocytes/100 leukocytes 10 % 0-12 Automated blood eosinophils/100 leukocytes 0 % 0-10 Automated blood basophils/100 leukocytes 0 % 0-10 Blood neutrophils automated count (number/volume) 17.8 10*3 1.8-7.8 Blood lymphocytes automated count (number/volume) 1.8 10*3 1.0-4.0 Blood monocytes automated count (number/volume) 2. 1 10*3 0.0-1.0 Automated eosinophil count 0.1 10*3/uL 0 .0-0.3 Automated blood basophil count (count/volume) 0.0 10*3/uL 0.0-0.1 Comprehensive metabolic panel - 02/20/20 06:00 Serum or plasma sodium measurement (moles/volume) 109 mmol/L 135-145 Serum or plasma potassium measurement (moles/volume) 5.8 mmol/L 3.6-5.0 Serum or plasma chloride measurement (moles/volume) 72 mmol/L 98-107 Carbon dioxide 27 mmol/L 21-32 Serum or plasma anion gap determination (moles/volume) 10 mmol/L 5-14 Serum or plasma urea nitrogen measurement (mass/volume ) 11 mg/dL 7-18 Serum or plasma creatinine measurement (mass/volume) 0.55 mg/dL 0.60-1.30 Serum or plasma urea nitrogen/creatinine mass ratio 20 NRG Serum or plasma creatinine measurement w ith calculation of estimated glomerular filtration rate > NRG Serum or plasma glucose measurement (mass/volume) 111 mg/dL 70-105 Serum or plasma calcium measurement (mass/volume) 8.7 mg/dL 8.5-10.1 Serum or plasma total bilirubin measurement (mass/volu me) 1.4 mg/dL 0.1-1.0 Serum or plasma alkaline phosphatase allan surement (enzymatic activity/volume) 247 U/L 40-136 Serum or plasma aspartate aminotransfera se measurement (enzymatic activity/volume) 42 U/L 5-34 Serum or plasma alanine aminotransferase measurement (enzymatic activity/volume) 16 U/L 0-55 Serum or plasma protein measurement (mass/volume) 7.3 g/dL 6.4-8.2 Serum or plasma albumin measurement (mass/volume) 3.3 g/dL 3.2-4.5 CALCIUM CORRECTED 9.3 mg/dL 8.5-10.1 PT panel in platelet poor plasma by coag ulation assay - 02/20/20 06:00 Prothrombin time (PT) in platelet poor plasma by coagu lation assay 16.1 s 12.2-14.7 INR in platelet poor plasma or blood by coagulation as say 1.2 0.8-1.4 Activated partial thromboplastin time (a PTT) in platelet poor plasma bycoagulation assay - 02/20/20 06:00 Activated partial thromboplastin time (a PTT) in platelet poor plasma bycoagulation assay 36 s 24-35 Fibrinogen measurement in platelet poor plasma by coagulation assay (mass/volume) - 02/20/20 06:00 Fibrinogen measurement in platelet poor plasma by coagulation assay (mass/volume) 438 mg/dL 221-496 Blood lactic acid measurement (moles/vol ume) - 02/20/20 06:00 Blood lactic acid measurement (moles/volume) 1.77 mmol/L 0.50-2.00 Serum ragweed IgE antibody assay - 02/19 06:00 Serum ragweed IgE antibody assay 292 U/L 125-220 Serum or plasma troponin i.cardiac measu rement (mass/volume) - 02/20/20 06:00 Serum or plasma troponin i.cardiac measurement (mass/v olume) 0.066 ng/mL <0.028 Serum or plasma C reactive protein measu rement (mass/volume) - 02/20/20 06:00 Serum or plasma C reactive protein measurement (mass/v olume) 14.58 mg/dL 0.00-0.50 Manual absolute plasma cell count - 09/10 06:00 Blood monocytes/100 leukocytes 10 % NRG Manual blood segmented neutrophils/100 leukocytes 83 % NRG Blood band neutrophils/100 leukocytes 5 % NRG Manual blood lymphocytes/100 leukocytes 1 % NRG Manual eosinophils/100 leukocytes in nose 1 % NRG Blood polychromasia detection by light microscopy SLIGHT NRG Blood anisocytosis detection by light microscopy S LIGHT NRG Manual blood nucleated erythrocytes/100 leukocytes ratio 4 NRG Serum or plasma lithium measurement (mol es/volume) - 02/20/20 06:00 BNP PT 918.5 pg/mL <100.0 Arterial blood gas measurement - 0 06:20 Blood pCO2 58 mm[Hg] 35-45 Blood pO2 97 mm[Hg] 79-93 Arterial blood bicarbonate measurement (moles/volume) 32 mmol/L 23-27 Arterial blood base excess by calculation 6.2 mmol /L -2.5-2.5 Arterial blood oxygen saturation measurement 98 % 94-100 * Inhaled oxygen flow rate 100% NRG Arterial blood pH measurement with patient temperature correction 7.35 7.37-7.43 Arterial blood carbon dioxide, total measurement (mole s/volume) 33.7 mmol/L 21.0-31.0 Body site LEFT RADIAL NRG Assessment of wrist artery patency prior to arterial p uncture YES-POS NRG Setting of ventilation mode NO NR G Measurement of body temperature 35.8 NRG Complete urinalysis with reflex to cultu re - 02/20/20 06:41 Urine color determination YELLOW NRG Urine clarity determination CLEAR NR G Urine pH measurement by test strip 6.0 5-9 Specific gravity of urine by test strip 1.020 1.016-1.022 Urine protein assay by test strip, semi-quantitative NEGATIVE NEGATIVE Urine glucose detection by automated test strip NE GATIVE NEGATIVE Erythrocytes detection in urine sediment by light micr oscopy NEGATIVE NEGATIVE Urine ketones detection by automated test strip NE GATIVE NEGATIVE Urine nitrite detection by test strip NEGATIVE NEGATIVE Urine total bilirubin detection by test strip NEGA TIVE NEGATIVE Urine urobilinogen measurement by automated test strip (mass/volume) 1.0 mg/dL < = 1.0 Urine leukocyte esterase detection by dipstick NEG ATIVE NEGATIVE Automated urine sediment erythrocyte cou nt by microscopy (number/high power field) NONE NRG Automated urine sediment leukocyte count by microscopy (number/high power field) RARE NRG Bacteria detection in urine sediment by light microsco py NEGATIVE NRG Squamous epithelial cells detection in u rine sediment by light microscopy 0-2 NRG Crystals detection in urine sediment by light microsco py NONE NRG Casts detection in urine sediment by light microscopy NONE NRG Mucus detection in urine sediment by light microscopy NEGATIVE NRG Complete urinalysis with reflex to culture NO NRG Encounters ACCT No. Visit Date/Time Discharge Status Pt. Type Provider Facility Loc./Unit Complaint [id number] 11/05/2016 09:08:00 Document Registration [id number] 01/04/2014 08:41:00 01/04/2014 23:59: 59 CLS Outpatient LONA HUTCHINSON DO [id number] 11/27/2013 10:44:00 014 09:55:00 DIS Inpatient [id number] 02/20/2020 06:30:00 Document Registration
[2020-02-20] MEDS ORDERED: SODIUM CHLORIDE 3% 500 ML INJ SCH (08:30)
--- NOTE | 2020-02-20 08:39 | NUR ---
800 MLS EMPTIED OUT OF PTS LYLE. PT RESTING COMFORTABLY AT THIS TIME. VSS.
--- NOTE | 2020-02-20 08:52 | Diagnostic Imaging Report ---
INDICATION: Wheezing, shortness of air, abdominal distention FINDINGS: Sensitivity admittedly limited by body habitus and necessity for portable technique. The bowel gas pattern is grossly unremarkable and no significant air dilatation of bowel loops and no abnormal fecal loading apparent. IMPRESSION: No acute finding identified. Dictated by: Dictated on workstation # [id number]
--- NOTE | 2020-02-20 09:12 | Pulmonary Consultation ---
History of Present Illness History of Present Illness Date Seen by Provider: Feb 20, 2020 Time Seen by Provider: 09:07 Date of Admission History of Present Illness 59yo presented to ED secondary to worsening SOB an bilateral LE edema over the last 2 wks. When EMS arrived patient's oxygen was in the mid 70s. She was placed on a nonrebreather and oxygen increased to the mid-90s. Patient roommate works at [employer] however has been tested negative for COVID. Allergies and Home Medications Allergies Coded Allergies: No Known Drug Allergies (Verified , 01/22/09) Home Medications Loratadine 10 Mg Tablet, 10 MG PO DAILY PRN for ALLERGIES, (Reported) NEEDED FOR ALLERGIES Past Sqbogyr-Onyorq-Kfvbsv Hx Past Med/Social Hx: Reviewed Nursing Past Med/Soc Hx Patient Social History Alcohol Use: Occasionally Uses Alcohol Beverage of Choice: Beer Recreational Drug Use: Yes Drug of Choice: CANNIBUS Smoking Status: Current Everyday Smoker Type Used: Cigarettes 2nd Hand Smoke Exposure: Yes Recent Foreign Travel: No Contact w/Someone Who Travel: No Recent Infectious Disease Expo: No Recent Hopitalizations: No Immunizations Up To Date Tetanus Booster (TDap): Unknown Past Medical History Surgeries: Yes (HERNIA) Hysterectomy, Orthopedic, Tonsillectomy, Tubal Ligation Respiratory: Yes COPD Cardiac: Yes Hypertension Neurological: Yes Stroke : No Reproductive Disorders: Yes (CERVICAL CANCER) MAINTENANCE PIPEFITTER History: Hysterectomy Sexually Transmitted Disease: No Genitourinary: No Gastrointestinal: No Musculoskeletal: No Endocrine: No HEENT: No Cancer: Yes Uterine Psychosocial: No Integumentary: Yes (CELLULITIS) Blood Disorders: No Family Medical History Patient reports no known family medical history. Review of Systems Time Seen by Provider: 09:24 Sepsis Event Evaluation Height, Weight, BMI Height: 5'6.00" Weight: 144lbs. 5.0oz. 65.913938so; 35.00 BMI Method:Stated Exam Exam Vital Signs Date Time Temp Pulse Resp B/P (MAP) Pulse Ox O2 Delivery O2 Flow Rate FiO2 02/20/20 08:45 89 18 114/68 (83) 97 NIV Bilevel 02/20/20 08:30 97 18 115/82 (93) 97 NIV Bilevel 02/20/20 08:15 90 16 117/59 (78) 98 Room Air 02/20/20 08:00 92 16 134/70 (91) 98 NIV Bilevel 02/20/20 07:45 88 18 139/103 (115) 97 NIV Bilevel 02/20/20 07:30 85 16 120/61 (80) 97 Room Air 02/20/20 07:15 87 31 122/74 (90) 98 NIV Bilevel 02/20/20 07:00 91 32 126/91 (103) 97 NIV Bilevel 90.00 02/20/20 06:45 89 30 137/75 (95) 96 NIV Bilevel 90.00 02/20/20 06:42 89 40 97 90.00 02/20/20 06:30 96 32 136/80 (98) 97 NIV Bilevel 100.00 02/20/20 06:15 92 34 165/101 (122) 95 Non Rebreather 15.00 02/20/20 05:58 35.8 88 41 168/100 (122) 90 Non Rebreather 15.00 I & O 02/20/20 07:00 Intake Total 10 ml Balance 10 ml Height & Weight Height: 5'6.00" Weight: 144lbs. 5.0oz. 65.610414rd; 35.00 BMI Method:Stated General Appearance: Moderate Distress, Obese HEENT: PERRL/EOMI, Moist Mucous Membranes Neck: Full Range of Motion Respiratory: Decreased Breath Sounds, Wheezing (diffuse ) Cardiovascular: Tachycardia Capillary Refill: Less Than 3 Seconds Extremity: Normal Range of Motion, Swelling (3+ edema ) Neurologic/Psychiatric: Alert, Oriented x3, No Motor/Sensory Deficits Skin: Other (venous stasis changes ) Results Lab Laboratory Tests 02/20/20 06:00 Assessment/Plan Assessment/Plan Acute respiratory failure -BiPAP -Monitor close in ICU -Check echocardiogram once out of COVID isolation CHF AE with right > L pleural effusion -Continue Lasix Pneumonia -Check PCT -Continue Rocpehin and azithromycin -Macdonald culture -COVID is pending Hyponatremia with hyperkalemia r/o adrenal insuff -Check random cortisol -Monitor -Currently on Hypertonic saline -Repeat labs- will probably d/c hypertonic saline -Pt was given lasix in the ED RAHEL GALLO DO Feb 20, 2020 09:12
[2020-02-20] MEDS ORDERED: AZITHROMYCIN INJECTION 500 MG in NS (IVPB) 250 ML IV NR (09:15)
[2020-02-20 10:56] LABS: ABG BASE EXCESS 8.8 MMOL/L (-2.5-2.5); ABG OXYGEN SATURATION 92 % (94-100); ABG PCO2 63 MMHG (35-45); ABG PH 7.35 (7.37-7.43); ABG PO2 71 MMHG (79-93); ABG TCO2 36.4 MMOL/L (21.0-31.0)
[2020-02-20 10:57] LABS: ALLENS TEST POSITIVE; INSPIRED O2 90; PATIENT TEMP 36.7; VENTILATOR NO
[2020-02-20] MEDS ORDERED: FUROSEMIDE 40 MG/4 ML INJ (LASIX) ONE (12:23)
--- NOTE | 2020-02-20 12:30 | History & Physical-Hospitalist ---
History of Present Illness HPI/Chief Complaint Pt is a 59yoCF with no known PMH who presented to the ER due to shortness of breath. She is unable to provide me any history and all she will say is "quit" when I asked her questions. All history is obtained from the notes. Per ER note she has been having increasing lower extremity edema and shortness of breath for 2 weeks. EMS was called today and they found her to have oxygen saturations in the 70s. Non rebreather was placed and she increased to the 90s for saturation. Apparently her roommate works at [employer] and was tested for COVID and was negative. She was placed on BiPAP and admitted to the ICU for acute respiratory failure. She was also found to be hyponatremic and was start on hypertonic saline per the ER. Source: patient Date Seen 02/20/20 Time Seen by a Provider: 12:29 Attending Physician Soni Shepard MD PCP No,Local Physician Referring Physician Date of Admission Feb 20, 2020 at 08:12 Home Medications & Allergies Home Medications Reviewed patient Home Medication Reconciliation performed by pharmacy medication reconciliations plasma center technician and/or nursing. Patients Allergies have been reviewed. Allergies Allergies Coded Allergies No Known Drug Allergies (Verified01/22/09) Past Qpyuacw-Qbknlq-Yxlnme Hx Past Med/Social Hx: Reviewed Nursing Past Med/Soc Hx Patient Social History Alcohol Use: Occasionally Uses Alcohol Beverage of Choice: Beer Recreational Drug Use: Yes Drug of Choice: CANNIBUS Smoking Status: Current Everyday Smoker Type Used: Cigarettes 2nd Hand Smoke Exposure: Yes Recent Foreign Travel: No Contact w/other who traveled: No Recent Hopitalizations: No Recent Infectious Disease Expo: No Immunizations Up To Date Tetanus Booster (TDap): Unknown Past Medical History Surgeries: Hysterectomy, Orthopedic, Tonsillectomy, Tubal Ligation Cardiac: Hypertension Neurological: Stroke : No Reproductive: Yes (CERVICAL CANCER) Sexually Transmitted Disease: No Hysterectomy Cancer: Uterine History of Blood Disorders: No Family History Reviewed Nursing Family Hx Patient reports no known family medical history. No Pertinent Family Hx Review of Systems ROS-Unable to Obtain: clinical condition Constitutional: see HPI Physical Exam Physical Exam Vital Signs Vital Signs - First Documented 02/20/20 02/20/20 05:58 10:03 Temp 35.8 Pulse 88 Resp 41 B/P (MAP) 168/100 (122) Pulse Ox 90 O2 Delivery Non Rebreather O2 Flow Rate 15.00 FiO2 90 Capillary Refill : Less Than 3 Seconds Height, Weight, BMI Height: 5'6.00" Weight: 144lbs. 5.0oz. 65.702075gn; 35.00 BMI Method:Stated General Appearance: Chronically ill, Other (ill appearing) HEENT: Moist Mucous Membranes Neck: Normal Inspection, Supple Respiratory: Decreased Breath Sounds, Other (on BiPAP) Cardiovascular: Regular Rate, Rhythm, No Murmur Gastrointestinal: Normal Bowel Sounds, Non Tender, Soft Extremity: Swelling (3-4+ to above knees) Neurologic/Psychiatric: Other (arouses to verbal stimuli at first and then just says "quit" and won't participate in exam or follow commands) Skin: Normal Color, Warm/Dry Results Results/Procedures Labs Laboratory Tests 02/20/20 06:00 02/20/20 12:20 02/20/20 20:25 02/21/20 02:15 Patient resulted labs reviewed. Imaging: Reviewed Imaging Report Imaging [facility] [place] [place] NAME: ADOLPH LEON [facility] REC#: [id number] PT STATUS: ADM IN : 1960 PHYSICIAN: DOUG GARY DO ADMIT DATE: 02/20/20/ICU Signed Date of Exam:02/20/20 CHEST 1 VIEW, AP/PA ONLY INDICATION: COVID-19 Portable chest shows cardiomegaly with vascular congestion. There are Zainab B lines present. There is a right-sided effusion. All of these represent a change from a prior study from 11/27/2013 and have the appearance consistent with congestive failure. COVID-19 can cause interstitial infiltrates and effusions and follow-up is recommended. IMPRESSION: There is cardiomegaly with mild vascular congestion. There are interstitial infiltrates and a right-sided effusion with differential as described. Report was faxed to Chris Jenkins/[facility] by nilda at 6:47AM. Dictated by: Dictated on workstation # [id number] Dict: 02/20/2034 Trans: 02/20/2059 NILDA [id number] Interpreted by: SALBADOR WATT MD Electronically signed by: SALBADOR WATT MD 02/20/2059 [facility] [place] [place] NAME: ADOLPH LEON [facility] REC#: [id number] PT STATUS: ADM IN : 1960 PHYSICIAN: DOUG GARY DO ADMIT DATE: 02/20/20/ICU Draft Date of Exam:02/20/20 ABDOMEN/KUB 1VIEW INDICATION: Wheezing, shortness of air, abdominal distention FINDINGS: Sensitivity admittedly limited by body habitus and necessity for portable technique. The bowel gas pattern is grossly unremarkable and no significant air dilatation of bowel loops and no abnormal fecal loading apparent. IMPRESSION: No acute finding identified. Dictated on workstation # [id number] Dict: 02/20/20 0848 Trans: 02/20/20 0851 SUHAS [id number] Interpreted by: JUDD COOK Electronically signed by: Assessment/Plan Admission Diagnosis Acute Respiratory Failure Admission Status: Inpatient Order (span 2 midnights) Reason for Inpatient Admission: respiratory failure on BiPAP, may need intubation Assessment and Plan Acute Respiratory Failure Volume overload Elevated Troponin Infiltrates On BiPAP Called and discussed with Dr Sinclair, will await ABG and may need intubation following that Lasix given in ER Echo Cardiology consulted, appreciate recs COVID19 pending CAP coverage Hyponatremia Started on hypertonic saline by ER Will stop to avoid over correction get BMP now and base treatment off that SONI SHEPARD MD Feb 20, 2020 12:30
[2020-02-20] MEDS ORDERED: ALBUTEROL/IPRATROP (COMBIVENT RESPIMAT) 4 GM INHALER IH SCH (13:00)
[2020-02-20] MEDS ORDERED: proPOfol 200 MG/20 ML (DIPRIVAN) VIAL IV ONE (13:03)
[2020-02-20] MEDS ORDERED: CATHETER FLUSH 10 ML SYR IV PRN (13:15)
[2020-02-20 13:28] LABS: CHLORIDE 76 MMOL/L (98-107); POTASSIUM 5.2 MMOL/L (3.6-5.0)
[2020-02-20 13:29] LABS: ALBUMIN 2.9 GM/DL (3.2-4.5); CALCIUM 8.2 MG/DL (8.5-10.1)
[2020-02-20 13:30] LABS: GLUCOSE 86 MG/DL (70-105)
[2020-02-20 13:31] LABS: CARBON DIOXIDE 32 MMOL/L (21-32); TOTAL PROTEIN 6.5 GM/DL (6.4-8.2)
[2020-02-20 13:34] LABS: BUN/CREATININE RATIO 17; CREATININE SERUM 0.52 MG/DL (0.60-1.30)
[2020-02-20 13:35] LABS: ALKALINE PHOSPHATASE 226 U/L (40-136); PHOSPHORUS 2.8 MG/DL (2.3-4.7)
[2020-02-20 13:38] LABS: ALANINE AMINOTRANSFERASE 16 U/L (0-55); MAGNESIUM 1.9 MG/DL (1.6-2.4)
[2020-02-20 13:39] LABS: GFR ESTIMATED > 60
--- NOTE | 2020-02-20 13:40 | NUR ---
Spoke with pt's mother, Chris Gallegos, at this time. Pt's family states that she has 2 sons and will attempt to contact them in regards to pt's wishes due to pt's declining position at this time. Family updated via phone also during this call of respiratory status.
[2020-02-20 13:42] LABS: SODIUM 115 MMOL/L (135-145)
--- NOTE | 2020-02-20 13:52 | NUR ---
Updates provided at this time to Jose Valdes, Pt's son. Pt also has another son that Jose will try to contact at a later time. Information provided on pt's status at this time. Pt is currently refusing intubation and family made aware of situation and prognosis. Will continue to treat pt as aggressively as pt will allow at this time. Will continue to update family.
[2020-02-20] MEDS ORDERED: NS IV 1000 ML 1,000 ML ONE (13:53)
[2020-02-20 13:57] LABS: ABG BASE EXCESS 10.7 MMOL/L (-2.5-2.5); ABG OXYGEN SATURATION 87 % (94-100); ABG PCO2 60 MMHG (35-45); ABG PH 7.39 (7.37-7.43); ABG PO2 59 MMHG (79-93); ABG TCO2 37.9 MMOL/L (21.0-31.0)
[2020-02-20 13:58] LABS: ALLENS TEST POSITIVE; INSPIRED O2 90; PATIENT TEMP 36.6; VENTILATOR NO
[2020-02-20] MEDS: CATHETER FLUSH 10 ML SYR IV SCH ×2 (14:16→21:15)
[2020-02-20] MEDS: NS IV 1000 ML 1,000 ML IV SCH (14:16)
[2020-02-20 14:46] LABS: AMPHETAMINE SCREEN, URINE NEGATIVE (NEGATIVE); BARBITURATE SCREEN URINE NEGATIVE (NEGATIVE); BENZODIAZEPINES SCREEN URINE NEGATIVE (NEGATIVE); CANNABINOID SCREEN, URINE NEGATIVE (NEGATIVE); COCAINE SCREEN URINE NEGATIVE (NEGATIVE); METHADONE STAT NEGATIVE (NEGATIVE); METHAMPHETAMINE SCREEN URINE S NEGATIVE (NEGATIVE); OPIATE SCREEN URINE POSITIVE (NEGATIVE); OXYCODONE STAT NEGATIVE (NEGATIVE); PROPOXYPHENE STAT NEGATIVE (NEGATIVE); TRICYCLIC ANTIDEPRESSANTS SCRE NEGATIVE (NEGATIVE)
--- NOTE | 2020-02-20 15:30 | Consultation-Cardiology ---
HPI-Cardiology Cardiology Consultation Date of Consultation 02/20/20 Date of Admission Time Seen by Provider: 12:29 Indication: acute respiratory failure HPI 59-year-old lady with history of hypertension, has been having progressive weight gain and shortness of breath, came into the emergency room with worsening dyspnea. Had anasarca. Has been having fever. No chills. She is laying down in bed on BiPAP, unable to provide any further history. Home Medications & Allergies Allergies: Coded Allergies: No Known Drug Allergies (Verified , 01/22/09) Home Medication List Reviewed: Yes UBW-Ijyotj-Bmlgid Hx Patient Social History Marital Status: Employed/Student: employed Alcohol Use: Occasionally Uses Recreational Drug Use: Yes Drug of Choice: CANNIBUS Smoking Status: Current Everyday Smoker Type Used: Cigarettes 2nd Hand Smoke Exposure: Yes Recent Foreign Travel: No Recent Infectious Disease Expo: No Recent Hopitalizations: No Immunizations Up To Date Tetanus Booster (TDap): Unknown Past Medical History Discussed below Family Medical History Family Medical Hx Noncontributory Family History: Patient reports no known family medical history. Review of Systems-General Review of Systems Constitutional: No chills, No fever; weight gain, other (unable to provide review of system, information were obtained by reviewing her records) EENTM: no symptoms reported Respiratory: cough, short of breath, wheezing Cardiovascular: No chest pain; edema Gastrointestinal: no symptoms reported Musculoskeletal: other (3+ edema ) Skin: no symptoms reported Reviewed Test Results Reviewed Test Results Lab Laboratory Tests Test 02/20/20 06:00 02/20/20 06:20 02/20/20 06:40 02/20/20 06:41 Range/Units White Blood Count 21.8 H 4.3-11.0 10^3/uL Red Blood Count 5.01 4.35-5.85 10^6/uL Hemoglobin 14.9 11.5-16.0 G/DL Hematocrit 49 35-52 % Mean Corpuscular Volume 97 80-99 FL Mean Corpuscular Hemoglobin 30 25-34 PG Mean Corpuscular Hemoglobin Concent 31 L 32-36 G/DL Red Cell Distribution Width 20.1 H 10.0-14.5 % Platelet Count 182 130-400 10^3/uL Mean Platelet Volume 9.5 7.4-10.4 FL Neutrophils (%) (Auto) 82 H 42-75 % Lymphocytes (%) (Auto) 8 L 12-44 % Monocytes (%) (Auto) 10 0-12 % Eosinophils (%) (Auto) 0 0-10 % Basophils (%) (Auto) 0 0-10 % Neutrophils # (Auto) 17.8 H 1.8-7.8 X 10^3 Lymphocytes # (Auto) 1.8 1.0-4.0 X 10^3 Monocytes # (Auto) 2.1 H 0.0-1.0 X 10^3 Eosinophils # (Auto) 0.1 0.0-0.3 10^3/uL Basophils # (Auto) 0.0 0.0-0.1 10^3/uL Neutrophils % (Manual) 83 % Lymphocytes % (Manual) 1 % Monocytes % (Manual) 10 % Eosinophils % (Manual) 1 % Band Neutrophils 5 % Nucleated Red Blood Cells 4 Polychromasia SLIGHT Anisocytosis SLIGHT Prothrombin Time 16.1 H 12.2-14.7 SEC INR Comment 1.2 0.8-1.4 Activated Partial Thromboplast Time 36 H 24-35 SEC Fibrinogen 438 221-496 MG/DL Sodium Level 109 *L 135-145 MMOL/L Potassium Level 5.8 H 3.6-5.0 MMOL/L Chloride Level 72 L 98-107 MMOL/L Carbon Dioxide Level 27 21-32 MMOL/L Anion Gap 10 5-14 MMOL/L Blood Urea Nitrogen 11 7-18 MG/DL Creatinine 0.55 L 0.60-1.30 MG/DL Estimat Glomerular Filtration Rate > 60 BUN/Creatinine Ratio 20 Glucose Level 111 H 70-105 MG/DL Lactic Acid Level 1.77 0.50-2.00 MMOL/L Calcium Level 8.7 8.5-10.1 MG/DL Corrected Calcium 9.3 8.5-10.1 MG/DL Total Bilirubin 1.4 H 0.1-1.0 MG/DL Aspartate Amino Transf (AST/SGOT) 42 H 5-34 U/L Alanine Aminotransferase (ALT/SGPT) 16 0-55 U/L Alkaline Phosphatase 247 H 40-136 U/L Lactate Dehydrogenase 292 H 125-220 U/L Troponin I 0.066 H <0.028 NG/ML C-Reactive Protein High Sensitivity 14.58 H 0.00-0.50 MG/DL B-Type Natriuretic Peptide 918.5 H <100.0 PG/ML Total Protein 7.3 6.4-8.2 GM/DL Albumin 3.3 3.2-4.5 GM/DL Blood Gas Puncture Site LEFT RADIAL Blood Gas Patient Temperature 35.8 Arterial Blood pH 7.35 L 7.37-7.43 Arterial Blood Partial Pressure CO2 58 H 35-45 MMHG Arterial Blood Partial Pressure O2 97 H 79-93 MMHG Arterial Blood HCO3 32 H 23-27 MMOL/L Arterial Blood Total CO2 33.7 H 21.0-31.0 MMOL/L Arterial Blood Oxygen Saturation 98 94-100 % Arterial Blood Base Excess 6.2 H -2.5-2.5 MMOL/L Benjie Test YES-POS Blood Gas Ventilator Setting NO Blood Gas Inspired Oxygen 100% Urine Opiates Screen POSITIVE H NEGATIVE Urine Oxycodone Screen NEGATIVE NEGATIVE Urine Methadone Screen NEGATIVE NEGATIVE Urine Propoxyphene Screen NEGATIVE NEGATIVE Urine Barbiturates Screen NEGATIVE NEGATIVE Ur Tricyclic Antidepressants Screen NEGATIVE NEGATIVE Urine Phencyclidine Screen NEGATIVE NEGATIVE Urine Amphetamines Screen NEGATIVE NEGATIVE Urine Methamphetamines Screen NEGATIVE NEGATIVE Urine Benzodiazepines Screen NEGATIVE NEGATIVE Urine Cocaine Screen NEGATIVE NEGATIVE Urine Cannabinoids Screen NEGATIVE NEGATIVE Urine Color YELLOW Urine Clarity CLEAR Urine pH 6.0 5-9 Urine Specific [place] 1.020 1.016-1.022 Urine Protein NEGATIVE NEGATIVE Urine Glucose (UA) NEGATIVE NEGATIVE Urine Ketones NEGATIVE NEGATIVE Urine Nitrite NEGATIVE NEGATIVE Urine Bilirubin NEGATIVE NEGATIVE Urine Urobilinogen 1.0 < = 1.0 MG/DL Urine Leukocyte Esterase NEGATIVE NEGATIVE Urine RBC (Auto) NEGATIVE NEGATIVE Urine RBC NONE /HPF Urine WBC RARE /HPF Urine Squamous Epithelial Cells 0-2 /HPF Urine Crystals NONE /LPF Urine Bacteria NEGATIVE /HPF Urine Casts NONE /LPF Urine Mucus NEGATIVE /LPF Urine Culture Indicated NO Test 02/20/20 10:44 02/20/20 11:20 02/20/20 12:20 02/20/20 13:35 Range/Units Blood Gas Puncture Site LEFT RADIAL RIGHT RADIAL Blood Gas Patient Temperature 36.7 36.6 Arterial Blood pH 7.35 L 7.39 7.37-7.43 Arterial Blood Partial Pressure CO2 63 H 60 H 35-45 MMHG Arterial Blood Partial Pressure O2 71 L 59 L 79-93 MMHG Arterial Blood HCO3 34 H 36 H 23-27 MMOL/L Arterial Blood Total CO2 36.4 H 37.9 H 21.0-31.0 MMOL/L Arterial Blood Oxygen Saturation 92 L 87 L 94-100 % Arterial Blood Base Excess 8.8 H 10.7 H -2.5-2.5 MMOL/L Benjie Test POSITIVE POSITIVE Blood Gas Ventilator Setting NO NO Blood Gas Inspired Oxygen 90 90 Sodium Level 115 *L 135-145 MMOL/L Potassium Level 5.2 H 3.6-5.0 MMOL/L Chloride Level 76 L 98-107 MMOL/L Carbon Dioxide Level 32 21-32 MMOL/L Anion Gap 7 5-14 MMOL/L Blood Urea Nitrogen 9 7-18 MG/DL Creatinine 0.52 L 0.60-1.30 MG/DL Estimat Glomerular Filtration Rate > 60 BUN/Creatinine Ratio 17 Glucose Level 86 70-105 MG/DL Calcium Level 8.2 L 8.5-10.1 MG/DL Corrected Calcium 9.1 8.5-10.1 MG/DL Phosphorus Level 2.8 2.3-4.7 MG/DL Magnesium Level 1.9 1.6-2.4 MG/DL Total Bilirubin 1.0 0.1-1.0 MG/DL Aspartate Amino Transf (AST/SGOT) 46 H 5-34 U/L Alanine Aminotransferase (ALT/SGPT) 16 0-55 U/L Alkaline Phosphatase 226 H 40-136 U/L Total Protein 6.5 6.4-8.2 GM/DL Albumin 2.9 L 3.2-4.5 GM/DL Procalcitonin 0.36 H <0.10 NG/ML Physical Exam Physical Exam Vital Signs Vital Signs - First Documented 02/20/20 05:58 Temp 35.8 Pulse 88 Resp 41 B/P (MAP) 168/100 (122) Pulse Ox 90 O2 Delivery Non Rebreather O2 Flow Rate 15.00 Capillary Refill : Less Than 3 Seconds Height, Weight, BMI Height: 5'6.00" Weight: 144lbs. 5.0oz. [id number]; 35.00 BMI Method:Stated General Appearance: Chronically ill, Other (patient is lethargic, on BiPAP) HEENT: Moist Mucous Membranes Neck: Normal Inspection, Supple Respiratory: Decreased Breath Sounds, Other (on BiPAP) Cardiovascular: Regular Rate, Rhythm, No Murmur Gastrointestinal: Normal Bowel Sounds, Non Tender, Soft Extremity: Swelling (3-4+ to above knees) Neurologic/Psychiatric: Other (arouses to verbal stimuli at first and then just says "quit" and won't participate in exam or follow commands) Skin: Normal Color, Warm/Dry A/P-Cardiology Admission Diagnosis Acute respiratory failure Acute congestive heart failure, left ventricular systolic dysfunction Type II myocardial infarction Hypertension Assessment/Plan Acute respiratory failure, worsening pulmonary edema, given diuretics, questionable COVID, might require intubation Mild elevation in troponin level, no acute EKG changes, probably type II myocardial infarction secondary to hypoxemia Change in mental status, probably secondary to hypoxemia. Continue to monitor Congestive heart failure, acute left ventricular systolic dysfunction, history of left ventricular diastolic dysfunction, planning to evaluate echocardiogram. Continue on diuretics and monitor Hypertension, monitor blood pressure History of marijuana use. Noncompliant with medication JUSTINE ANNE MD Feb 20, 2020 15:30
[2020-02-20] MEDS: ALBUTEROL/IPRATROP (COMBIVENT RESPIMAT) 4 GM INHALER IH SCH ×2 (15:50→18:21)
--- NOTE | 2020-02-20 16:16 | Diagnostic Imaging Report ---
INDICATION: New PICC line placement. COMPARISON: Earlier same day. FINDINGS: Multiple frontal radiographic views of the chest were obtained and show interval placement of right upper extremity PICC line, tip of which appears to terminate within the high SVC. There is persistent cardiomegaly and pulmonary vascular congestion. There also appears to be interval increase in right-sided pleural effusion and associated airspace disease. No pneumothorax is seen on either side. IMPRESSION: 1. New right upper extremity PICC line with tip in the high SVC. 2. Persistent cardiomegaly and pulmonary vascular congestion. 3. Interval increase in right-sided pleural effusion and associated atelectasis and/or infiltrate. Dictated by: Dictated on workstation # [id number]
--- NOTE | 2020-02-20 20:31 | NUR ---
Call to E ICU Dr So to report patient pain level of 10 in her right thigh described as a burning pain. Order from for Morphine.
[2020-02-20] MEDS ORDERED: morphine INJ 4 MG/ML 1 ML (VIAL/SYRINGE) ONE (21:04)
[2020-02-20 21:08] LABS: BUN/CREATININE RATIO 15; CALCIUM 8.2 MG/DL (8.5-10.1); CARBON DIOXIDE 30 MMOL/L (21-32); CHLORIDE 77 MMOL/L (98-107); CREATININE SERUM 0.52 MG/DL (0.60-1.30); GFR ESTIMATED > 60; GLUCOSE 86 MG/DL (70-105); POTASSIUM 4.8 MMOL/L (3.6-5.0)
[2020-02-20] MEDS: morphine INJ 10 MG/ML 1ML (SYR OR VIAL) IVP PRN (21:15)
[2020-02-20 21:17] LABS: SODIUM 116 MMOL/L (135-145)
[2020-02-21] VITALS (21 sets, daily range): BP systolic 102–125; BP diastolic 59–74
[2020-02-21] MEDS: morphine INJ 10 MG/ML 1ML (SYR OR VIAL) IVP PRN ×2 (02:27→20:10)
[2020-02-21 02:39] LABS: ABG BASE EXCESS 11.3 MMOL/L (-2.5-2.5); ABG OXYGEN SATURATION 93 % (94-100); ABG PCO2 64 MMHG (35-45); ABG PH 7.38 (7.37-7.43); ABG PO2 72 MMHG (79-93); ABG TCO2 38.9 MMOL/L (21.0-31.0)
[2020-02-21 02:40] LABS: HEMOGLOBIN 13.6 G/DL (11.5-16.0); MEAN PLATELET VOLUME 9.4 FL (7.4-10.4); WHITE BLOOD COUNT 19.1 10^3/uL (4.3-11.0)
[2020-02-21 02:48] LABS: ALLENS TEST YES-POS
[2020-02-21 02:49] LABS: INSPIRED O2 85%; PATIENT TEMP 36.6; VENTILATOR NO
[2020-02-21 03:06] LABS: BUN/CREATININE RATIO 14; CALCIUM 8.3 MG/DL (8.5-10.1); CARBON DIOXIDE 28 MMOL/L (21-32); CHLORIDE 78 MMOL/L (98-107); GFR ESTIMATED > 60; GLUCOSE 95 MG/DL (70-105); POTASSIUM 4.7 MMOL/L (3.6-5.0)
[2020-02-21 03:19] LABS: SODIUM 118 MMOL/L (135-145)
[2020-02-21 03:26] LABS: PHOSPHORUS 2.6 MG/DL (2.3-4.7)
[2020-02-21 03:28] LABS: MAGNESIUM 1.9 MG/DL (1.6-2.4)
[2020-02-21] MEDS: CATHETER FLUSH 10 ML SYR IV SCH ×3 (05:38→22:03)
--- NOTE | 2020-02-21 06:01 | Pulmonary Progress Note ---
Subjective Time Seen by a Provider: 05:55 Subjective/Events-last exam Pt on BiPAP refused intubation yesterday. Sepsis Event Evaluation Height, Weight, BMI Height: 5'6.00" Weight: 144lbs. 5.0oz. 65.561354xs; 35.00 BMI Method:Stated Focused Exam Lactate Level 02/20/20 06:00: Lactic Acid Level 1.77 Exam Exam Vital Signs Date Time Temp Pulse Resp B/P (MAP) Pulse Ox O2 Delivery O2 Flow Rate FiO2 02/21/20 05:00 86 13 114/68 (83) 95 NIV Bilevel 85.00 02/21/20 04:00 87 14 109/66 (80) 94 NIV Bilevel 85.00 02/21/20 03:10 92 NIV Bilevel 85 02/21/20 03:00 87 15 118/73 (88) 93 NIV Bilevel 85.00 02/21/20 02:30 36.6 NIV Bilevel 85.00 02/21/20 02:00 89 15 111/64 (80) 94 NIV Bilevel 85.00 02/21/20 01:37 86 18 92 85.00 02/21/20 01:00 87 02/21/20 01:00 86 13 109/65 (80) 93 NIV Bilevel 85.00 02/21/20 00:00 108 35 125/74 (91) 92 NIV Bilevel 85.00 02/20/20 23:40 36.6 NIV Bilevel 85.00 02/20/20 23:40 93 NIV Bilevel 85 02/20/20 23:00 92 13 110/66 (81) 93 NIV Bilevel 85.00 02/20/20 22:00 90 8 111/67 (82) 93 NIV Bilevel 85.00 02/20/20 21:31 91 22 91 85.00 02/20/20 21:00 87 14 108/64 (79) 96 NIV Bilevel 85.00 02/20/20 20:00 36.8 124/74 (91) NIV Bilevel 85.00 02/20/20 20:00 95 NIV Bilevel 85 02/20/20 19:00 92 13 110/79 (89) 95 NIV Bilevel 90.00 02/20/20 19:00 100 02/20/20 18:22 92 22 95 85.00 02/20/20 18:00 92 26 94 NIV Bilevel 90.00 02/20/20 17:00 94 13 95 NIV Bilevel 90.00 02/20/20 16:00 NIV Bilevel 90 02/20/20 16:00 93 20 91 NIV Bilevel 90.00 02/20/20 15:50 93 24 91 85.00 02/20/20 15:00 89 13 120/74 (89) 94 NIV Bilevel 90.00 02/20/20 14:00 96 18 88 NIV Bilevel 90.00 02/20/20 13:04 92 02/20/20 13:00 94 38 88 NIV Bilevel 90.00 02/20/20 12:00 NIV Bilevel 90 02/20/20 12:00 86 15 95/75 (82) 92 NIV Bilevel 90.00 02/20/20 11:00 88 16 99/51 (67) 93 NIV Bilevel 90.00 02/20/20 10:16 92 18 125/90 (102) NIV Bilevel 90.00 02/20/20 10:15 94 02/20/20 10:03 NIV Bilevel 90 02/20/20 10:00 93 17 140/81 92 NIV Bilevel 02/20/20 09:30 90 17 113/64 (80) 93 NIV Bilevel 02/20/20 09:15 88 12 118/85 (96) 96 NIV Bilevel 02/20/20 09:00 90 16 117/66 (83) 97 NIV Bilevel 02/20/20 08:45 89 18 114/68 (83) 97 NIV Bilevel 02/20/20 08:30 97 18 115/82 (93) 97 NIV Bilevel 02/20/20 08:15 90 16 117/59 (78) 98 Room Air 02/20/20 08:00 92 16 134/70 (91) 98 NIV Bilevel 02/20/20 07:45 88 18 139/103 (115) 97 NIV Bilevel 02/20/20 07:30 85 16 120/61 (80) 97 Room Air 02/20/20 07:15 87 31 122/74 (90) 98 NIV Bilevel 02/20/20 07:00 91 32 126/91 (103) 97 NIV Bilevel 90.00 02/20/20 06:45 89 30 137/75 (95) 96 NIV Bilevel 90.00 02/20/20 06:42 89 40 97 90.00 02/20/20 06:30 96 32 136/80 (98) 97 NIV Bilevel 100.00 02/20/20 06:15 92 34 165/101 (122) 95 Non Rebreather 15.00 02/20/20 05:58 35.8 88 41 168/100 (122) 90 Non Rebreather 15.00 I & O0 02/21/20 07:00 Intake Total 450 ml Output Total 4350 ml Balance -3900 ml Height & Weight Height: 5'6.00" Weight: 144lbs. 5.0oz. 65.041410vf; 35.00 BMI Method:Stated General Appearance: Moderate Distress, Obese HEENT: PERRL/EOMI, Moist Mucous Membranes Neck: Full Range of Motion Respiratory: Decreased Breath Sounds, Wheezing (diffuse ) Cardiovascular: Tachycardia Capillary Refill: Less Than 3 Seconds Extremity: Normal Range of Motion, Swelling (3+ edema ) Neurologic/Psychiatric: Alert, Oriented x3, No Motor/Sensory Deficits Skin: Other (venous stasis changes ) Results Lab Laboratory Tests 02/20/20 06:00 02/20/20 12:20 02/20/20 20:25 02/21/20 02:15 Assessment/Plan Assessment/Plan Acute respiratory failure -BiPAP -Pt refused intubation yesterday. -Monitor close in ICU PICC line placed yesterday -Check echocardiogram once out of COVID isolation CHF AE with right > L pleural effusion -Continue Lasix 40mg BID Pneumonia -Check PCT -[place] and azithromycin -Macdonald culture -COVID is pending Hyponatremia-- improving -Monitor -Normal saline at 30cc/hr RAHEL GALLO DO Feb 21, 2020 06:01
[2020-02-21] MEDS: FUROSEMIDE 40 MG/4 ML INJ (LASIX) IVP SCH ×2 (06:16→15:46)
[2020-02-21] MEDS: cefTRIAXone FOR IV USE 1,000 MG in WATER (STERILE) FOR INJECTION 10 ML IV SCH (06:17)
[2020-02-21] MEDS: ALBUTEROL/IPRATROP (COMBIVENT RESPIMAT) 4 GM INHALER IH SCH ×4 (08:09→20:04)
[2020-02-21 08:30] LABS: ABG BASE EXCESS 13.4 MMOL/L (-2.5-2.5); ABG OXYGEN SATURATION 96 % (94-100); ABG PCO2 63 MMHG (35-45); ABG PO2 80 MMHG (79-93)
[2020-02-21 08:33] LABS: ALLENS TEST POSITIVE; INSPIRED O2 85%; PATIENT TEMP 97; VENTILATOR NO
--- NOTE | 2020-02-21 08:37 | Cardiology Progress Note ---
Subjective Date Seen by Provider: Feb 21, 2020 Time Seen by Provider: 08:36 Subjective/Events-last exam Patient is laying down in bed, lethargic. Still having significant edema Review of Systems General: Fatigue, Malaise Pulmonary: Dyspnea, Cough Cardiovascular: Edema Focused Exam Lactate Level 02/20/20 06:00: Lactic Acid Level 1.77 Objective-Cardiology Exam Last Set of Vital Signs Vital Signs 02/21/20 02/21/20 02/21/20 02/21/20 02:30 03:10 08:00 08:09 Temp 36.6 Pulse 87 Resp 20 B/P (MAP) 112/66 (81) Pulse Ox 95 O2 Delivery NIV Bilevel O2 Flow Rate 85.00 FiO2 85 Capillary Refill : Less Than 3 Seconds I&O Intake and Output 02/21/20 00:00 Intake Total 460 ml Output Total 3750 ml Balance -3290 ml Intake Oral 0 ml IV Total 460 ml Output Urine Total 3750 ml # Bowel Movements 1 Daily Weight Change No General: Alert, Moderate Distress HEENT: Atraumatic Neck: Supple Heart: Regular Rate, Normal S1, Normal S2 Abdomen: Normal Bowel Sounds Extremities: Other (peripheral edema) Results Lab Laboratory Tests 02/20/20 12:20 02/20/20 20:25 02/21/20 02:15 A/P-Cardiology Admission Diagnosis Acute respiratory failure Acute congestive heart failure, left ventricular systolic dysfunction Type II myocardial infarction Hypertension Assessment/Plan Acute respiratory failure, worsening pulmonary edema, responding to diuretics. Refused intubation. Managed by Dr. Sinclair COVID IgG is negative, COVID testing is pending MRI/arrived running around Mild elevation in troponin level, no acute EKG changes, probably type II myocardial infarction secondary to hypoxemia Change in mental status, probably secondary to hypoxemia. Continue to monitor Congestive heart failure, acute left ventricular systolic dysfunction, history of left ventricular diastolic dysfunction, planning to evaluate echocardiogram. Responding to aggressive diuresis, put out about 4 L yesterday. Continue with diuretics and monitor Hypertension, monitor blood pressure History of marijuana use. Noncompliant with medication Clinical Quality Measures DVT/VTE Risk/Contraindication: Risk Factor Score Per Nursin RFS Level Per Nursing on Admit: 4+=Very High JUSTINE ANNE MD Feb 21, 2020 8:37 am
[2020-02-21] MEDS: NS IV 1000 ML 1,000 ML IV SCH ×2 (09:19→22:03)
[2020-02-21] MEDS: AZITHROMYCIN INJECTION 250 MG in NS (IVPB) 250 ML IV SCH (09:19)
--- NOTE | 2020-02-21 09:35 | Progress Note - Hospitalist ---
Subjective HPI/CC On Admission Date Seen by Provider: Feb 21, 2020 Time Seen by Provider: 09:28 Pt is a 59yoCF with no known PMH who presented to the ER due to shortness of breath. She is unable to provide me any history and all she will say is "quit" when I asked her questions. All history is obtained from the notes. Per ER note she has been having increasing lower extremity edema and shortness of breath for 2 weeks. EMS was called today and they found her to have oxygen saturations in the 70s. Non rebreather was placed and she increased to the 90s for saturation. Apparently her roommate works at [employer] and was tested for COVID and was negative. She was placed on BiPAP and admitted to the ICU for acute respiratory failure. She was also found to be hyponatremic and was start on hypertonic saline per the ER. Subjective/Events-last exam Pt is sleepy this morning and originally did not respond much to me but after a sternal rub woke up and followed commands and answered some questions. She started she was just sleepy and was up a lot overnight. Focused Exam Lactate Level 02/20/20 06:00: Lactic Acid Level 1.77 Objective Exam Vital Signs Vital Signs Date Time Temp Pulse Resp B/P (MAP) Pulse Ox O2 Delivery O2 Flow Rate FiO2 02/21/20 09:00 95 18 121/70 (87) 94 NIV Bilevel 85.00 02/21/20 03:10 85 02/21/20 02:30 36.6 Capillary Refill : Less Than 3 Seconds General Appearance: Chronically ill, Other (sleepy but arouses) Respiratory: Lungs Clear Cardiovascular: Regular Rate, Rhythm, No Murmur Gastrointestinal: Normal Bowel Sounds, Non Tender, Soft Extremity: No Calf Tenderness, No Pedal Edema Neurologic/Psychiatric: Alert, Other (arouses with physical stimuli) Results/Procedures Lab Laboratory Tests 02/20/20 12:20 02/20/20 20:25 02/21/20 02:15 Patient resulted labs reviewed. Imaging: Reviewed Imaging Report Assessment/Plan Assessment and Plan Assess & Plan/Chief Complaint Acute Respiratory Failure Volume overload Elevated Troponin Infiltrates On BiPAP still, ABG ordered now due to mental status Lasix BID Echo Cardiology consulted, appreciate recs COVID19 pending still CAP coverage Hyponatremia Up 9 in ~24 hours, more appropriate rise Continue to trend, repeat BMP Continue NS @30ml/hr Clinical Quality Measures DVT/VTE Risk/Contraindication: Risk Factor Score Per Nursin RFS Level Per Nursing on Admit: 4+=Very High SONI ASCENCIO MD Feb 21, 2020 09:35
[2020-02-21] MEDS: ENOXAPARIN 40 MG/0.4 ML (LOVENOX) SYR SQ SCH ×2 (12:48→21:46)
[2020-02-21 13:17] LABS: CHLORIDE 83 MMOL/L (98-107)
[2020-02-21 13:18] LABS: CALCIUM 7.8 MG/DL (8.5-10.1)
[2020-02-21 13:19] LABS: GLUCOSE 84 MG/DL (70-105)
[2020-02-21 13:20] LABS: CARBON DIOXIDE 33 MMOL/L (21-32)
[2020-02-21 13:23] LABS: CREATININE SERUM 0.49 MG/DL (0.60-1.30); GFR ESTIMATED > 60
[2020-02-21 13:24] LABS: BUN/CREATININE RATIO 14
[2020-02-21 13:39] LABS: SODIUM 124 MMOL/L (135-145)
[2020-02-22] VITALS (25 sets, daily range): BP systolic 97–125; BP diastolic 46–75
[2020-02-22 00:30] LABS: PHOSPHORUS 2.5 MG/DL (2.3-4.7)
[2020-02-22 00:32] LABS: MAGNESIUM 1.8 MG/DL (1.6-2.4)
[2020-02-22] MEDS: morphine INJ 10 MG/ML 1ML (SYR OR VIAL) IVP PRN ×3 (02:39→20:33)
[2020-02-22 02:55] LABS: BASOPHILS % (AUTO) 0 % (0-10); EOSINOPHILS % (AUTO) 0 % (0-10); HEMATOCRIT 46 % (35-52); HEMOGLOBIN 13.4 G/DL (11.5-16.0); LYMPHOCYTES # (AUTO) 1.5 X 10^3 (1.0-4.0); LYMPHOCYTES % (AUTO) 10 % (12-44); MEAN CORPUSCULAR HEMOGLOBIN 30 PG (25-34); MEAN CORPUSCULAR HGB CONC 29 G/DL (32-36); MEAN CORPUSCULAR VOLUME 101 FL (80-99); MEAN PLATELET VOLUME 8.9 FL (7.4-10.4); MONOCYTES # (AUTO) 1.3 X 10^3 (0.0-1.0); MONOCYTES % (AUTO) 9 % (0-12); NEUTROPHILS # (AUTO) 11.4 X 10^3 (1.8-7.8); NEUTROPHILS % (AUTO) 80 % (42-75); PLATELET COUNT 177 10^3/uL (130-400); RED CELL DISTRIBUTION WIDTH 20.7 % (10.0-14.5); WHITE BLOOD COUNT 14.2 10^3/uL (4.3-11.0)
[2020-02-22 03:03] LABS: CHLORIDE 83 MMOL/L (98-107); POTASSIUM 3.7 MMOL/L (3.6-5.0); SODIUM 127 MMOL/L (135-145)
[2020-02-22 03:04] LABS: CALCIUM 8.3 MG/DL (8.5-10.1); GLUCOSE 89 MG/DL (70-105)
[2020-02-22 03:06] LABS: CARBON DIOXIDE 35 MMOL/L (21-32)
[2020-02-22 03:08] LABS: CREATININE SERUM 0.48 MG/DL (0.60-1.30); GFR ESTIMATED > 60
[2020-02-22 03:09] LABS: BUN/CREATININE RATIO 13
[2020-02-22 03:25] LABS: PHOSPHORUS 2.4 MG/DL (2.3-4.7)
[2020-02-22 03:27] LABS: MAGNESIUM 3.7 MG/DL (1.6-2.4)
[2020-02-22] MEDS: POTASSIUM CL 10MEQ/50ML IVPB 50 ML IV SCH (03:46)
[2020-02-22] MEDS: KCL 20 MEQ TAB (K-DUR) PO SCH (03:47)
[2020-02-22] MEDS: MAGNESIUM 1 GM/100 ML IVPB 100 ML IV SCH (03:47)
[2020-02-22 04:19] LABS: ABG BASE EXCESS 15.1 MMOL/L (-2.5-2.5); ABG OXYGEN SATURATION 94 % (94-100); ABG PH 7.38 (7.37-7.43); ABG PO2 71 MMHG (79-93); ABG TCO2 43.4 MMOL/L (21.0-31.0)
[2020-02-22 04:21] LABS: ABG PCO2 71 MMHG (35-45); ALLENS TEST POSITIVE; INSPIRED O2 90; PATIENT TEMP 36.3; VENTILATOR NO
[2020-02-22] MEDS: FUROSEMIDE 40 MG/4 ML INJ (LASIX) IVP SCH ×2 (06:00→18:39)
[2020-02-22] MEDS: cefTRIAXone FOR IV USE 1,000 MG in WATER (STERILE) FOR INJECTION 10 ML IV SCH (06:16)
[2020-02-22] MEDS: CATHETER FLUSH 10 ML SYR IV SCH ×3 (06:16→21:55)
[2020-02-22] MEDS: ALBUTEROL/IPRATROP (COMBIVENT RESPIMAT) 4 GM INHALER IH SCH ×4 (07:28→18:14)
[2020-02-22] MEDS: AZITHROMYCIN INJECTION 250 MG in NS (IVPB) 250 ML IV SCH (09:11)
[2020-02-22] MEDS: ENOXAPARIN 40 MG/0.4 ML (LOVENOX) SYR SQ SCH ×2 (09:12→21:55)
--- NOTE | 2020-02-22 09:44 | NUR ---
PT STATED THAT SHE WOULD LIKE TO BE A DNR AND PT ALSO STATED THAT SHE DID NOT WANT TO BE INTUBATED . PT ALSO REQUESTED TO NOT WEAR BIPAP ANYMORE. DR GE PRESENT.
--- NOTE | 2020-02-22 11:22 | Progress Note - Hospitalist ---
Subjective HPI/CC On Admission Date Seen by Provider: Feb 22, 2020 Time Seen by Provider: 11:15 Pt is a 59yoCF with no known PMH who presented to the ER due to shortness of breath. She is unable to provide me any history and all she will say is "quit" when I asked her questions. All history is obtained from the notes. Per ER note she has been having increasing lower extremity edema and shortness of breath for 2 weeks. EMS was called today and they found her to have oxygen saturations in the 70s. Non rebreather was placed and she increased to the 90s for saturation. Apparently her roommate works at [employer] and was tested for COVID and was negative. She was placed on BiPAP and admitted to the ICU for acute respiratory failure. She was also found to be hyponatremic and was start on hypertonic saline per the ER. Subjective/Events-last exam Spoke to her about do not intubate with the nurse at the bedside. She does not want intubation, she does not want Bipap mask, she is willing for nasal canula oxygen and Vapotherm if needed COVID swab is negative will take out of isolation Overall feels much better but dry and wants clear liquids at least Review of Systems Pulmonary: Dyspnea Focused Exam Lactate Level 02/20/20 06:00: Lactic Acid Level 1.77 Objective Exam Vital Signs Vital Signs Date Time Temp Pulse Resp B/P (MAP) Pulse Ox O2 Delivery O2 Flow Rate FiO2 02/22/20 14:00 85 20 97/61 (73) 91 High Flow N/C 12.00 02/22/20 12:00 37.0 02/22/20 08:00 90 Capillary Refill : Less Than 3 Seconds General Appearance: No Apparent Distress, WD/WN, Anxious, Chronically ill, Obese Respiratory: Chest Non Tender, Lungs Clear, Normal Breath Sounds, No Accessory Muscle Use, No Respiratory Distress, Decreased Breath Sounds Cardiovascular: Regular Rate, Rhythm, No Edema, No Gallop, No JVD, No Murmur, Normal Peripheral Pulses Neurologic/Psychiatric: Alert, Oriented x3, No Motor/Sensory Deficits, Normal Mood/Affect Results/Procedures Lab Laboratory Tests 02/22/20 02:40 Patient resulted labs reviewed. Imaging: Reviewed Imaging Report Assessment/Plan Assessment and Plan Assess & Plan/Chief Complaint Assessment: Respiratory failure COVID-19 negative Severe COPD do not intubate orders Obesity Plan: Oxygen Monitor closely Do not intubate Clinical Quality Measures DVT/VTE Risk/Contraindication: Risk Factor Score Per Nursin RFS Level Per Nursing on Admit: 4+=Very High ANDREW GE DO Feb 22, 2020 11:22
--- NOTE | 2020-02-22 11:26 | Cardiology Progress Note ---
Subjective Date Seen by Provider: Feb 22, 2020 Time Seen by Provider: 11:24 Subjective/Events-last exam Patient is laying down in bed, still short of breath. No change Review of Systems General: Fatigue, Malaise Pulmonary: Dyspnea Cardiovascular: Edema; No: Chest Pain, Palpitations, Orthopnea, Paroxysmal Noc. Dyspnea, Lt Headedness, Other Focused Exam Lactate Level 02/20/20 06:00: Lactic Acid Level 1.77 Objective-Cardiology Exam Last Set of Vital Signs Vital Signs 02/22/20 02/22/20 02/22/20 08:00 10:00 11:00 Temp 36.6 Pulse 87 Resp 7 B/P (MAP) 110/59 (76) Pulse Ox 92 O2 Delivery High Flow N/C O2 Flow Rate 12.00 FiO2 90 Capillary Refill : Less Than 3 Seconds I&O Intake and Output 02/22/20 00:00 Intake Total 10 ml Output Total 5325 ml Balance -5315 ml Intake Oral 0 ml IV Total 10 ml Output Urine Total 5325 ml # Bowel Movements 1 General: Alert, Mild Distress, Moderate Distress HEENT: Atraumatic Neck: Supple Heart: Regular Rate, Normal S1, Normal S2 Abdomen: Normal Bowel Sounds Extremities: Other (peripheral edema) Results Lab Laboratory Tests 02/21/20 13:00 02/22/20 02:40 A/P-Cardiology Admission Diagnosis Acute respiratory failure Acute congestive heart failure, left ventricular systolic dysfunction Type II myocardial infarction Hypertension Assessment/Plan Acute respiratory failure, refused intubation, responding to aggressive diuresis. Continue to monitor COVID IgG is negative, COVID testing is negative Mild elevation in troponin level, no acute EKG changes, probably type II cookie cardial infarction secondary to hypoxemia Change in mental status, probably secondary to hypoxemia. Continue to monitor Congestive heart failure, acute left ventricular systolic dysfunction, history of left ventricular diastolic dysfunction, will evaluate 2-D echocardiogram once patient off isolation, continue with aggressive diuresis for now and monitor Hypertension, monitor blood pressure History of marijuana use. Noncompliant with medication Clinical Quality Measures DVT/VTE Risk/Contraindication: Risk Factor Score Per Nursin RFS Level Per Nursing on Admit: 4+=Very High JUSTINE ANNE MD Feb 22, 2020 11:26
[2020-02-22] MEDS: NICOTINE 21 MG (NICODERM) PATCH TD SCH (11:41)
[2020-02-23] VITALS (23 sets, daily range): BP systolic 100–127; BP diastolic 63–95
[2020-02-23 03:56] LABS: BASOPHILS % (AUTO) 0 % (0-10); EOSINOPHILS # (AUTO) 0.2 10^3/uL (0.0-0.3); EOSINOPHILS % (AUTO) 1 % (0-10); HEMATOCRIT 47 % (35-52); HEMOGLOBIN 13.5 G/DL (11.5-16.0); LYMPHOCYTES # (AUTO) 1.6 X 10^3 (1.0-4.0); LYMPHOCYTES % (AUTO) 13 % (12-44); MEAN CORPUSCULAR HEMOGLOBIN 30 PG (25-34); MEAN CORPUSCULAR HGB CONC 29 G/DL (32-36); MEAN CORPUSCULAR VOLUME 103 FL (80-99); MEAN PLATELET VOLUME 9.1 FL (7.4-10.4); MONOCYTES # (AUTO) 1.2 X 10^3 (0.0-1.0); MONOCYTES % (AUTO) 9 % (0-12); NEUTROPHILS # (AUTO) 9.7 X 10^3 (1.8-7.8); NEUTROPHILS % (AUTO) 76 % (42-75); PLATELET COUNT 152 10^3/uL (130-400); RED CELL DISTRIBUTION WIDTH 20.6 % (10.0-14.5); WHITE BLOOD COUNT 12.7 10^3/uL (4.3-11.0)
[2020-02-23 04:08] LABS: CHLORIDE 83 MMOL/L (98-107); POTASSIUM 3.3 MMOL/L (3.6-5.0); SODIUM 131 MMOL/L (135-145)
[2020-02-23 04:09] LABS: CALCIUM 8.1 MG/DL (8.5-10.1)
[2020-02-23 04:10] LABS: GLUCOSE 109 MG/DL (70-105)
[2020-02-23 04:11] LABS: CARBON DIOXIDE 37 MMOL/L (21-32)
[2020-02-23 04:13] LABS: PHOSPHORUS 2.6 MG/DL (2.3-4.7)
[2020-02-23 04:14] LABS: CREATININE SERUM 0.49 MG/DL (0.60-1.30); GFR ESTIMATED > 60
[2020-02-23 04:15] LABS: BUN/CREATININE RATIO 12
[2020-02-23 04:16] LABS: MAGNESIUM 1.8 MG/DL (1.6-2.4)
[2020-02-23] MEDS: POTASSIUM CL 10MEQ/50ML IVPB 50 ML IV SCH ×5 (05:35→07:33)
[2020-02-23] MEDS: MAGNESIUM 1 GM/100 ML IVPB 100 ML IV SCH (05:35)
[2020-02-23] MEDS: KCL 20 MEQ TAB (K-DUR) PO SCH (05:35)
[2020-02-23] MEDS: FUROSEMIDE 40 MG/4 ML INJ (LASIX) IVP SCH ×2 (05:57→18:01)
[2020-02-23] MEDS: NS IV 1000 ML 1,000 ML IV SCH ×2 (05:57→21:25)
[2020-02-23] MEDS: cefTRIAXone FOR IV USE 1,000 MG in WATER (STERILE) FOR INJECTION 10 ML IV SCH (05:58)
[2020-02-23] MEDS: ALBUTEROL/IPRATROP (COMBIVENT RESPIMAT) 4 GM INHALER IH SCH ×3 (06:33→19:18)
[2020-02-23] MEDS: CATHETER FLUSH 10 ML SYR IV SCH ×3 (06:46→21:25)
[2020-02-23] MEDS: NICOTINE 21 MG (NICODERM) PATCH TD SCH (09:54)
[2020-02-23] MEDS: AZITHROMYCIN INJECTION 250 MG in NS (IVPB) 250 ML IV SCH (09:55)
[2020-02-23] MEDS: NICOTINE PATCH REMOVAL TP SCH (09:55)
[2020-02-23] MEDS: ENOXAPARIN 40 MG/0.4 ML (LOVENOX) SYR SQ SCH ×2 (09:55→21:25)
--- NOTE | 2020-02-23 11:50 | Cardiology Progress Note ---
Subjective Date Seen by Provider: Feb 23, 2020 Time Seen by Provider: 11:49 Subjective/Events-last exam Patient is laying down in bed, feeling better, breathing better. Review of Systems General: No Chills, No Night Sweats; Fatigue, Malaise; No Appetite, No Other HEENT: No Head Aches, No Visual Changes, No Eye Pain, No Ear Pain, No Dysphasia, No Sinus Congestion, No Post Nasal Drip, No Sore Throat, No Other Pulmonary: Dyspnea; No Cough, No Pleuritic Chest Pain, No Other Cardiovascular: No: Chest Pain, Palpitations, Orthopnea, Paroxysmal Noc. Dyspnea, Edema, Lt Headedness, Other Objective-Cardiology Exam Last Set of Vital Signs Vital Signs 02/22/20 02/23/20 02/23/20 02/23/20 08:00 08:00 10:00 11:04 Temp 36.5 Pulse 80 Resp 23 B/P (MAP) 109/72 (84) Pulse Ox 92 O2 Delivery High Flow N/C O2 Flow Rate 10.00 FiO2 90 Capillary Refill : Less Than 3 Seconds I&O Intake and Output 02/23/20 00:00 Intake Total 975 ml Output Total 2850 ml Balance -1875 ml Intake Oral 975 ml Output Urine Total 2850 ml General: Alert, Mild Distress, Moderate Distress HEENT: Atraumatic Neck: Supple Lungs: Other (the lateral rhonchi) Heart: Regular Rate, Normal S1, Normal S2 Abdomen: Normal Bowel Sounds Extremities: No Clubbing, Other (peripheral edema) Skin: No Rashes Neuro: Normal Speech Results Lab Laboratory Tests 02/23/20 03:50 A/P-Cardiology Admission Diagnosis Acute respiratory failure Acute congestive heart failure, left ventricular systolic dysfunction Type II myocardial infarction Hypertension Assessment/Plan Acute respiratory failure, refused intubation, responding to aggressive diuresis, improving, continue on diuretics and continue to monitor Mild elevation in troponin level, no acute EKG changes, probably type II myocardial infarction secondary to hypoxemia Change in mental status, probably secondary to hypoxemia. Continue to monitor Congestive heart failure, acute left ventricular systolic dysfunction, history of left ventricular diastolic dysfunction, normal left ventricular systolic function, responded to diuretics. Continue to monitor Hypertension, monitor blood pressure History of marijuana use. Noncompliant with medication COVID IgG is negative, COVID testing is negative Clinical Quality Measures DVT/VTE Risk/Contraindication: Risk Factor Score Per Nursin RFS Level Per Nursing on Admit: 4+=Very High JUSTINE ANNE MD Feb 23, 2020 11:50 am
--- NOTE | 2020-02-23 13:18 | Progress Note - Hospitalist ---
Subjective HPI/CC On Admission Date Seen by Provider: Feb 23, 2020 Time Seen by Provider: 08:15 Pt is a 59yoCF with no known PMH who presented to the ER due to shortness of breath. She is unable to provide me any history and all she will say is "quit" when I asked her questions. All history is obtained from the notes. Per ER note she has been having increasing lower extremity edema and shortness of breath for 2 weeks. EMS was called today and they found her to have oxygen saturations in the 70s. Non rebreather was placed and she increased to the 90s for saturation. Apparently her roommate works at [employer] and was tested for COVID and was negative. She was placed on BiPAP and admitted to the ICU for acute respiratory failure. She was also found to be hyponatremic and was start on hypertonic saline per the ER. Subjective/Events-last exam Patient denies shortness of breath at rest continues to have mild loose sounding but nonproductive cough. She reports that she would like to get out of bed at least in the chair for a while. She reports her usual low back pain aggravated by inactivity denies any radicular lower extremity pain denies night sweats chills or fever. Objective Exam Vital Signs Vital Signs Date Time Temp Pulse Resp B/P (MAP) Pulse Ox O2 Delivery O2 Flow Rate FiO2 02/23/20 12:00 36.8 02/23/20 12:00 84 18 115/72 (86) 90 High Flow N/C 8.00 02/22/20 08:00 90 Capillary Refill : Less Than 3 Seconds General Appearance: No Apparent Distress, Chronically ill, Obese Respiratory: No Accessory Muscle Use, No Respiratory Distress, Other (Faint intermittent next re-wheezes noted anteriorly decreased breath sounds posteriorly few fine basilar rales noted with scattered rhonchi. No focal findings noted.) Cardiovascular: Regular Rate, Rhythm, No Edema, No Gallop, No JVD, No Murmur, Normal Peripheral Pulses Extremity: Other (Trace bilateral pedal and pretibial edema trace edema of the hands reportedly improved.) Results/Procedures Lab Laboratory Tests 02/23/20 03:50 Patient resulted labs reviewed. Imaging: Reviewed Imaging Report Assessment/Plan Assessment and Plan Assess & Plan/Chief Complaint 1. Hypercapnic respiratory failure probably due to combination of acute COPD exacerbation with underlying heart failure due to diastolic dysfunction slowly improving COVID negative. Will see if she does sitting up today and is stable with this can attempt transfer to the chair. Critical Care Critically Ill Patient Clinical Quality Measures DVT/VTE Risk/Contraindication: Risk Factor Score Per Nursin RFS Level Per Nursing on Admit: 4+=Very High FEROZ HEREDIA MD Feb 23, 2020 13:18
[2020-02-23] MEDS: morphine INJ 10 MG/ML 1ML (SYR OR VIAL) IVP PRN (23:16)
[2020-02-24] VITALS (23 sets, daily range): BP systolic 102–168; BP diastolic 58–103
[2020-02-24 03:37] LABS: BASOPHILS % (AUTO) 0 % (0-10); EOSINOPHILS # (AUTO) 0.2 10^3/uL (0.0-0.3); EOSINOPHILS % (AUTO) 1 % (0-10); HEMATOCRIT 48 % (35-52); LYMPHOCYTES # (AUTO) 1.3 X 10^3 (1.0-4.0); LYMPHOCYTES % (AUTO) 9 % (12-44); MEAN CORPUSCULAR HEMOGLOBIN 30 PG (25-34); MEAN CORPUSCULAR HGB CONC 29 G/DL (32-36); MEAN CORPUSCULAR VOLUME 102 FL (80-99); MEAN PLATELET VOLUME 9.2 FL (7.4-10.4); MONOCYTES # (AUTO) 1.4 X 10^3 (0.0-1.0); MONOCYTES % (AUTO) 10 % (0-12); NEUTROPHILS # (AUTO) 10.9 X 10^3 (1.8-7.8); NEUTROPHILS % (AUTO) 79 % (42-75); PLATELET COUNT 146 10^3/uL (130-400); RED CELL DISTRIBUTION WIDTH 20.6 % (10.0-14.5); WHITE BLOOD COUNT 13.8 10^3/uL (4.3-11.0)
[2020-02-24 03:50] LABS: CHLORIDE 86 MMOL/L (98-107)
[2020-02-24 03:51] LABS: POTASSIUM 3.2 MMOL/L (3.6-5.0); SODIUM 134 MMOL/L (135-145)
[2020-02-24 03:52] LABS: CALCIUM 8.1 MG/DL (8.5-10.1); GLUCOSE 107 MG/DL (70-105)
[2020-02-24 03:54] LABS: CARBON DIOXIDE 39 MMOL/L (21-32)
[2020-02-24 03:56] LABS: CREATININE SERUM 0.47 MG/DL (0.60-1.30); GFR ESTIMATED > 60; PHOSPHORUS 2.3 MG/DL (2.3-4.7)
[2020-02-24 03:57] LABS: BUN/CREATININE RATIO 11
[2020-02-24 03:59] LABS: MAGNESIUM 1.8 MG/DL (1.6-2.4)
[2020-02-24] MEDS: KCL 20 MEQ TAB (K-DUR) PO SCH ×2 (04:13→17:06)
[2020-02-24] MEDS: MAGNESIUM 1 GM/100 ML IVPB 100 ML IV SCH (04:13)
[2020-02-24] MEDS: POTASSIUM CL 10MEQ/50ML IVPB 50 ML IV SCH ×5 (04:13→08:38)
[2020-02-24] MEDS: CATHETER FLUSH 10 ML SYR IV SCH ×3 (04:38→21:03)
[2020-02-24] MEDS: NS IV 1000 ML 1,000 ML IV SCH (04:40)
[2020-02-24] MEDS: cefTRIAXone FOR IV USE 1,000 MG in WATER (STERILE) FOR INJECTION 10 ML IV SCH (05:58)
[2020-02-24] MEDS: FUROSEMIDE 40 MG/4 ML INJ (LASIX) IVP SCH ×2 (05:58→17:04)
[2020-02-24] MEDS: ALBUTEROL/IPRATROP (COMBIVENT RESPIMAT) 4 GM INHALER IH SCH ×4 (06:32→19:38)
[2020-02-24] MEDS: morphine INJ 10 MG/ML 1ML (SYR OR VIAL) IVP PRN ×2 (08:38→21:04)
[2020-02-24] MEDS ORDERED: BELLADONNA ALK/OPIUM (B & O) 30 MG SUPP PR PRN (09:30)
[2020-02-24] MEDS: NICOTINE PATCH REMOVAL TP SCH (10:30)
[2020-02-24] MEDS: AZITHROMYCIN INJECTION 250 MG in NS (IVPB) 250 ML IV SCH (10:52)
[2020-02-24] MEDS: ENOXAPARIN 40 MG/0.4 ML (LOVENOX) SYR SQ SCH ×2 (10:53→21:03)
[2020-02-24] MEDS: NICOTINE 21 MG (NICODERM) PATCH TD SCH (10:53)
--- NOTE | 2020-02-24 12:00 | Diagnostic Imaging Report ---
Indication: Hypoxia. Time of Exam 11:40 AM Correlation is made with prior chest from 02/20/2020. Right upper extremity PICC line remains in place with tip overlying the SVC. The heart is enlarged. Congestive changes have improved. There continues to be right basilar consolidation and pleural fluid. No pneumothorax is identified. IMPRESSION: Overall improvement in congestive changes with persistent consolidation and pleural fluid, right base. Dictated by: Dictated on workstation # [id number]
--- NOTE | 2020-02-24 12:18 | Progress Note - Hospitalist ---
Subjective HPI/CC On Admission Date Seen by Provider: Feb 24, 2020 Time Seen by Provider: 08:45 Pt is a 59yoCF with no known PMH who presented to the ER due to shortness of breath. She is unable to provide me any history and all she will say is "quit" when I asked her questions. All history is obtained from the notes. Per ER note she has been having increasing lower extremity edema and shortness of breath for 2 weeks. EMS was called today and they found her to have oxygen saturations in the 70s. Non rebreather was placed and she increased to the 90s for saturation. Apparently her roommate works at [employer] and was tested for COVID and was negative. She was placed on BiPAP and admitted to the ICU for acute respiratory failure. She was also found to be hyponatremic and was start on hypertonic saline per the ER. Subjective/Events-last exam Patient reporting spasm-like intermittent suprapubic pain which is new. Urine output through her [place] does not appear to be impeded and there is no evidence for hematuria or pyuria. She denies nausea or vomiting and she does report weakness and fatigue. She has stable nonproductive cough and denies chest pain. Objective Exam Vital Signs Vital Signs Date Time Temp Pulse Resp B/P (MAP) Pulse Ox O2 Delivery O2 Flow Rate FiO2 02/24/20 11:00 90 21 129/77 (94) 91 High Flow N/C 10.00 02/24/20 08:00 37.1 02/22/20 08:00 90 Capillary Refill : Less Than 3 Seconds General Appearance: Chronically ill, Moderate Distress (Intermittently with the patient clutching her lower abdomen) Respiratory: No Accessory Muscle Use, No Respiratory Distress, Other (Mild expiratory wheezing throughout with scattered rhonchi and diminished breath sounds in both bases right worse than left) Cardiovascular: Regular Rate, Rhythm, No Edema, No Gallop, No JVD, No Murmur Gastrointestinal: Normal Bowel Sounds, No Organomegaly, No Pulsatile Mass, Soft, Tenderness (And suprapubic area only to palpation no rebound or guarding) Extremity: Other (Trace pedal edema decreased with chronic venous insufficiency change) Results/Procedures Lab Laboratory Tests 02/24/20 03:25 Patient resulted labs reviewed. Imaging: Reviewed Imaging Report Assessment/Plan Assessment and Plan Assess & Plan/Chief Complaint 1. Hypercapnic respiratory failure probably due to combination of acute COPD exacerbation with underlying heart failure due to diastolic dysfunction slowly improving COVID negative. Very poor respiratory reserve questionable pneumonia right base continue antibiotics heart failure appears to be improving. Will see if she does sitting up today and is stable with this can attempt transfer to the chair. 2. came in today reporting that she has a long history of heavy alcohol use in addition to her smoking qualifying for alcohol use disorder she does not have evidence for withdrawal at this time and there is no apparent known history of withdrawal or seizures. Monitor but no change in medication. Critical Care Critically Ill Patient Clinical Quality Measures DVT/VTE Risk/Contraindication: Risk Factor Score Per Nursin RFS Level Per Nursing on Admit: 4+=Very High FEROZ HEREDIA MD Feb 24, 2020 12:18
--- NOTE | 2020-02-24 12:56 | Cardiology Progress Note ---
Subjective Date Seen by Provider: Feb 24, 2020 Time Seen by Provider: 12:55 Subjective/Events-last exam Patient is laying down in bed, feeling better. No new complaint Review of Systems General: No Chills, No Night Sweats, No Fatigue, No Malaise, No Appetite, No Other HEENT: No Head Aches, No Visual Changes, No Eye Pain, No Ear Pain, No Dysphasia, No Sinus Congestion, No Post Nasal Drip, No Sore Throat, No Other Pulmonary: Dyspnea; No Cough, No Pleuritic Chest Pain, No Other Cardiovascular: No: Chest Pain, Palpitations, Orthopnea, Paroxysmal Noc. Dyspnea, Edema, Lt Headedness, Other Objective-Cardiology Exam Last Set of Vital Signs Vital Signs 02/22/20 02/24/20 02/24/20 08:00 12:00 12:24 Temp 36.8 Pulse 90 Resp 22 B/P (MAP) 119/100 (106) Pulse Ox 92 O2 Delivery High Flow N/C O2 Flow Rate 10.00 FiO2 90 Capillary Refill : Less Than 3 Seconds I&O Intake and Output 02/24/20 00:00 Intake Total 1895 ml Output Total 4200 ml Balance -2305 ml Intake Oral 1645 ml IV Total 250 ml Output Urine Total 4200 ml General: Alert, Oriented X3, Cooperative, Mild Distress HEENT: Atraumatic Neck: Supple Lungs: Other (the lateral rhonchi) Heart: Regular Rate, Normal S1, Normal S2 Abdomen: Normal Bowel Sounds Extremities: No Clubbing, Other (peripheral edema) Skin: No Rashes Neuro: Normal Speech Results Lab Laboratory Tests 02/24/20 03:25 A/P-Cardiology Admission Diagnosis Acute respiratory failure Acute congestive heart failure, left ventricular systolic dysfunction Type II myocardial infarction Hypertension Assessment/Plan Status post acute respiratory failure, refused intubation, improving at this time, responding well to diuretics. Mild elevation in troponin level, no acute EKG changes, probably type II myocardial infarction secondary to hypoxemia Change in mental status, probably secondary to hypoxemia, better at this time Congestive heart failure, acute left ventricular systolic dysfunction, history of left ventricular diastolic dysfunction, normal left ventricular systolic function, responded to diuretics. Continue to monitor Hypertension, monitor blood pressure History of marijuana use. Noncompliant with medication COVID IgG is negative, COVID testing is negative Clinical Quality Measures DVT/VTE Risk/Contraindication: Risk Factor Score Per Nursin RFS Level Per Nursing on Admit: 4+=Very High JUSTINE ANNE MD Feb 24, 2020 12:56 pm
[2020-02-24] MEDS: methylPREDNISolone 40 MG/ML (Solu-MEDROL) VIAL IV SCH ×2 (17:04→21:03)
[2020-02-25] VITALS (13 sets, daily range): BP systolic 106–155; BP diastolic 64–106
[2020-02-25 03:19] LABS: BASOPHILS % (AUTO) 0 % (0-10); EOSINOPHILS % (AUTO) 0 % (0-10); HEMATOCRIT 49 % (35-52); HEMOGLOBIN 14.3 G/DL (11.5-16.0); LYMPHOCYTES # (AUTO) 0.6 X 10^3 (1.0-4.0); LYMPHOCYTES % (AUTO) 4 % (12-44); MEAN CORPUSCULAR HEMOGLOBIN 30 PG (25-34); MEAN CORPUSCULAR HGB CONC 29 G/DL (32-36); MEAN CORPUSCULAR VOLUME 102 FL (80-99); MONOCYTES # (AUTO) 0.2 X 10^3 (0.0-1.0); MONOCYTES % (AUTO) 2 % (0-12); NEUTROPHILS # (AUTO) 13.7 X 10^3 (1.8-7.8); NEUTROPHILS % (AUTO) 94 % (42-75); PLATELET COUNT 152 10^3/uL (130-400); RED CELL DISTRIBUTION WIDTH 20.9 % (10.0-14.5); WHITE BLOOD COUNT 14.6 10^3/uL (4.3-11.0)
[2020-02-25 03:31] LABS: CHLORIDE 88 MMOL/L (98-107); POTASSIUM 3.6 MMOL/L (3.6-5.0); SODIUM 137 MMOL/L (135-145)
[2020-02-25 03:32] LABS: CALCIUM 8.3 MG/DL (8.5-10.1)
[2020-02-25 03:33] LABS: GLUCOSE 162 MG/DL (70-105)
[2020-02-25 03:35] LABS: CARBON DIOXIDE 38 MMOL/L (21-32)
[2020-02-25 03:37] LABS: CREATININE SERUM 0.51 MG/DL (0.60-1.30); GFR ESTIMATED > 60; PHOSPHORUS 2.5 MG/DL (2.3-4.7)
[2020-02-25 03:38] LABS: BUN/CREATININE RATIO 14
[2020-02-25 03:39] LABS: MAGNESIUM 1.8 MG/DL (1.6-2.4)
[2020-02-25] MEDS: MAGNESIUM 1 GM/100 ML IVPB 100 ML IV SCH (03:46)
[2020-02-25] MEDS: POTASSIUM CL 10MEQ/50ML IVPB 50 ML IV SCH (03:46)
[2020-02-25] MEDS: KCL 20 MEQ TAB (K-DUR) PO SCH ×2 (03:47→08:56)
--- NOTE | 2020-02-25 06:14 | Pulmonary Progress Note ---
Subjective Time Seen by a Provider: 06:12 Subjective/Events-last exam Pt appears to be doing better. Sepsis Event Evaluation Height, Weight, BMI Height: 5'6.00" Weight: 144lbs. 5.0oz. [id number]; 35.00 BMI Method:Stated Exam Exam Vital Signs Date Time Temp Pulse Resp B/P (MAP) Pulse Ox O2 Delivery O2 Flow Rate FiO2 02/25/20 03:30 93 High Flow N/C 10.00 02/25/20 03:30 37.0 93 High Flow N/C 10.00 02/25/20 03:00 90 20 125/69 (87) 93 High Flow N/C 10.00 02/25/20 02:00 92 21 155/106 (122) 93 High Flow N/C 10.00 02/25/20 01:00 89 14 106/65 (79) 91 High Flow N/C 10.00 02/25/20 01:00 89 02/25/20 00:00 89 20 130/72 (91) 89 High Flow N/C 10.00 02/25/20 00:00 37.1 89 High Flow N/C 10.00 02/25/20 00:00 89 High Flow N/C 10.00 02/24/20 23:00 87 20 116/68 (84) 90 High Flow N/C 10.00 02/24/20 22:00 86 25 136/72 (93) 92 High Flow N/C 10.00 02/24/20 21:00 88 20 124/70 (88) 91 High Flow N/C 10.00 02/24/20 20:00 84 18 132/82 (99) 90 High Flow N/C 10.00 02/24/20 19:38 95 High Flow N/C 9.00 02/24/20 19:37 37.3 02/24/20 19:30 93 High Flow N/C 10.00 02/24/20 19:00 86 20 130/81 (97) 93 High Flow N/C 10.00 02/24/20 19:00 87 02/24/20 19:00 High Flow N/C 10.00 02/24/20 18:00 91 43 128/81 (97) 91 High Flow N/C 10.00 02/24/20 17:00 90 30 115/97 (103) 90 High Flow N/C 10.00 02/24/20 16:00 92 High Flow N/C 10.00 02/24/20 16:00 85 15 118/72 (87) 94 High Flow N/C 10.00 02/24/20 16:00 37.1 02/24/20 15:00 86 22 117/74 (88) 91 High Flow N/C 10.00 02/24/20 14:41 93 High Flow N/C 9.00 02/24/20 14:00 86 17 94 High Flow N/C 10.00 02/24/20 13:01 91 02/24/20 13:00 90 22 168/103 (124) 94 High Flow N/C 10.00 02/24/20 12:24 92 High Flow N/C 10.00 02/24/20 12:00 36.8 02/24/20 12:00 90 22 119/100 (106) 89 High Flow N/C 10.00 02/24/20 11:00 90 21 129/77 (94) 91 High Flow N/C 10.00 02/24/20 10:16 94 High Flow N/C 9.00 02/24/20 10:00 87 16 128/76 (93) 93 High Flow N/C 10.00 02/24/20 09:00 88 25 127/76 (93) 92 High Flow N/C 10.00 02/24/20 08:00 92 High Flow N/C 10.00 02/24/20 08:00 92 25 120/70 (87) 88 High Flow N/C 10.00 02/24/20 08:00 37.1 02/24/20 07:10 91 02/24/20 07:00 94 21 129/74 (92) 87 High Flow N/C 10.00 02/24/20 06:32 91 High Flow N/C 8.00 I & O 02/25/20 07:00 Intake Total 720 ml Output Total 2950 ml Balance -2230 ml Height & Weight Height: 5'6.00" Weight: 144lbs. 5.0oz. 65.137184uw; 35.00 BMI Method:Stated General Appearance: Chronically ill, Mild Distress HEENT: Moist Mucous Membranes Neck: Normal Inspection, Supple Respiratory: No Accessory Muscle Use, No Respiratory Distress, Other (Mild expiratory wheezing throughout with scattered rhonchi and diminished breath sounds in both bases right worse than left) Cardiovascular: Regular Rate, Rhythm, No Edema, No Gallop, No JVD, No Murmur Capillary Refill: Less Than 3 Seconds Gastrointestinal: non tender, soft Extremity: Other (Trace pedal edema decreased with chronic venous insufficiency change) Neurologic/Psychiatric: Alert, Oriented x3, No Motor/Sensory Deficits, Normal Mood/Affect Skin: Normal Color, Warm/Dry Results Lab Laboratory Tests 02/24/20 03:25 02/25/20 03:12 Assessment/Plan Assessment/Plan Acute respiratory failure -BiPAP PRN -Pt is DNR -D/C solumedrol CHF AE with right > L pleural effusion - Lasix 40mg BID -SL IVF Pneumonia - improving -Check PCT -s/p Rocpehin and azithromycin -Macdonald culture -COVID is negative RAHEL GALLO DO Feb 25, 2020 06:14
[2020-02-25] MEDS ORDERED: KCL 20 MEQ TAB (K-DUR) PO ONE (08:00)
--- NOTE | 2020-02-25 08:54 | Diagnostic Imaging Report ---
PROCEDURE: US Venous Lower Ext Yohannes. TECHNIQUE: Multiple Real-time grayscale images were obtained over the lower extremities in various projections, bilaterally. Additional duplex Doppler and color Doppler images were also obtained. INDICATION: Respiratory failure and CHF. FINDINGS: The left common femoral vein is patent as are the superficial femoral and popliteal veins. The posterior tibial vein is patent. There is thrombus identified in the lower peroneal vein. No fluid collections are seen. IMPRESSION: No evidence of femoropopliteal DVT. There is thrombus identified in the peroneal vein of the calf. Dictated by: Dictated on workstation # [id number]
[2020-02-25] MEDS: FUROSEMIDE 40 MG/4 ML INJ (LASIX) IVP SCH (08:56)
[2020-02-25] MEDS: NICOTINE PATCH REMOVAL TP SCH (08:57)
[2020-02-25] MEDS: ENOXAPARIN 40 MG/0.4 ML (LOVENOX) SYR SQ SCH ×2 (08:57→23:09)
[2020-02-25] MEDS: NICOTINE 21 MG (NICODERM) PATCH TD SCH (08:57)
[2020-02-25] MEDS: CATHETER FLUSH 10 ML SYR IV SCH ×3 (09:14→23:10)
--- NOTE | 2020-02-25 09:30 | Cardiology Progress Note ---
Subjective Date Seen by Provider: Feb 25, 2020 Time Seen by Provider: 09:28 Subjective/Events-last exam Patient is laying down in bed, feeling better, breathing better, still having some wheezing Review of Systems General: No Chills, No Night Sweats; Fatigue; No Malaise, No Appetite, No Other HEENT: No Head Aches, No Visual Changes, No Eye Pain, No Ear Pain, No Dysph mark, No Sinus Congestion, No Post Nasal Drip, No Sore Throat, No Other Pulmonary: Dyspnea; No Cough, No Pleuritic Chest Pain, No Other Cardiovascular: No: Chest Pain, Palpitations, Orthopnea, Paroxysmal Noc. Dyspnea, Edema, Lt Headedness, Other Objective-Cardiology Exam Last Set of Vital Signs Vital Signs 02/22/20 02/25/20 08:00 09:00 Temp 36.7 Pulse 98 Resp 18 B/P (MAP) 120/70 (87) Pulse Ox 98 O2 Delivery High Flow N/C O2 Flow Rate 10.00 FiO2 90 Capillary Refill : Less Than 3 Seconds I&O Intake and Output 02/25/20 00:00 Intake Total 1800 ml Output Total 2700 ml Balance -900 ml Intake Oral 600 ml IV Total 1200 ml Output Urine Total 2700 ml General: Alert, Oriented X3, Cooperative, Mild Distress HEENT: Atraumatic Neck: Supple Lungs: Other (bilateral wheezing) Heart: Regular Rate, Normal S1, Normal S2 Abdomen: Normal Bowel Sounds Extremities: No Clubbing, Other (peripheral edema) Skin: No Rashes Neuro: Normal Speech, Sensation Intact Psych/Mental Status: Mental Status NL, Mood NL Results Lab Laboratory Tests 02/25/20 03:12 A/P-Cardiology Admission Diagnosis Acute respiratory failure Acute congestive heart failure, left ventricular systolic dysfunction Type II myocardial infarction Hypertension Assessment/Plan Status post acute respiratory failure, refused intubation, better at this time, still having some wheezing Elevated d-dimer, venous Doppler study is negative Mild elevation in troponin level, no acute EKG changes, probably type II myocardial infarction secondary to hypoxemia Change in mental status, probably secondary to hypoxemia, better at this time Congestive heart failure, acute left ventricular systolic dysfunction, history of left ventricular diastolic dysfunction, normal left ventricular systolic function, responding well to diuretics, I will change Lasix to oral and add Toprol and losartan and monitor tolerance and response Hypertension, started on metoprolol and losartan, continue to monitor History of marijuana use. Noncompliant with medication COVID IgG is negative, COVID testing is negative Clinical Quality Measures DVT/VTE Risk/Contraindication: Risk Factor Score Per Nursin RFS Level Per Nursing on Admit: 4+=Very High JUSTINE ANNE MD Feb 25, 2020 9:30 am
[2020-02-25] MEDS: ALBUTEROL/IPRATROP (COMBIVENT RESPIMAT) 4 GM INHALER IH SCH ×4 (10:27→18:28)
[2020-02-25] MEDS ORDERED: LORazepam INJ 2 MG/ML (ATIVAN) VIAL ONE (10:43)
[2020-02-25] MEDS ORDERED: LORazepam INJ 2 MG/ML (ATIVAN) VIAL IVP ONE (10:45)
[2020-02-25] MEDS: LOSARTAN 25 MG (COZAAR) TAB PO SCH (10:54)
--- NOTE | 2020-02-25 11:22 | Progress Note ---
Subjective Subjective/Events-last exam Patient sitting up in bed. States that she is feeling some better but still short of breath. Denies any pain at this time. Review of Systems Pulmonary: Dyspnea, Cough Cardiovascular: Edema; No: Chest Pain, Palpitations Gastrointestinal: No: Nausea, Abdominal Pain, Diarrhea, Constipation Genitourinary: No Dysuria, No Frequency Neurological: Weakness Objective Exam Last Set of Vital Signs Vital Signs Date Time Temp Pulse Resp B/P (MAP) Pulse Ox O2 Delivery O2 Flow Rate FiO2 02/25/20 09:00 36.7 02/25/20 09:00 98 18 120/70 (87) 98 High Flow N/C 10.00 02/22/20 08:00 90 Capillary Refill : Less Than 3 Seconds I&O Intake and Output 02/25/20 00:00 Intake Total 1800 ml Output Total 2700 ml Balance -900 ml Intake Oral 600 ml IV Total 1200 ml Output Urine Total 2700 ml General: Alert, Oriented X3, Mild Distress Lungs: Other (basilar wheezing, shallow breathing and increased work of breathing at rest) Heart: Regular Rate, No Murmurs Abdomen: Normal Bowel Sounds, Soft, No Tenderness, No Masses Extremities: Other (3+ pitting edema bilaterally) Neuro: Sensation Intact, Cranial Nerves 3-12 NL Results/Procedures Lab Laboratory Tests 02/25/20 03:12: White Blood Count 14.6H, Red Blood Count 4.85, Hemoglobin 14.3, Hematocrit 49, Mean Corpuscular Volume 102H, Mean Corpuscular Hemoglobin 30, Mean Corpuscular Hemoglobin Concent 29L, Red Cell Distribution Width 20.9H, Platelet Count 152, Mean Platelet Volume 9.0, Neutrophils (%) (Auto) 94H, Lymphocytes (%) (Auto) 4L, Monocytes (%) (Auto) 2, Eosinophils (%) (Auto) 0, Basophils (%) (Auto) 0, Neutrophils # (Auto) 13.7H, Lymphocytes # (Auto) 0.6L, Monocytes # (Auto) 0.2, Eosinophils # (Auto) 0.0, Basophils # (Auto) 0.0, Sodium Level 137, Potassium Level 3.6, Chloride Level 88L, Carbon Dioxide Level 38H, Anion Gap 11, Blood Urea Nitrogen 7, Creatinine 0.51L, Estimat Glomerular Filtration Rate > 60, BUN/Creatinine Ratio 14, Glucose Level 162H, Calcium Level 8.3L, Phosphorus L evel 2.5, Magnesium Level 1.8 Microbiology 02/20/20 Blood Culture - Preliminary, Resulted No growth Assessment/Plan Assessment/Plan (1) Acute respiratory failure with hypoxia Status: Acute Assessment & Plan: 02/24: Patient on HFNC, Will titrate as tolerated, Dr Sinclair consulted, appreciate recommendations (2) Anasarca Status: Acute Assessment & Plan: 02/24: Lasix BID, Strict I/Os (3) Acute on chronic systolic CHF (congestive heart failure) Status: Acute Assessment & Plan: 02/24: Cardiology consulted and managing (4) Type 2 AMI (acute myocardial infarction) (5) HTN (hypertension) Status: Chronic Assessment & Plan: 02/24: Continue home meds Qualifiers: Qualified Codes: I10 - Essential (primary) hypertension (6) Alcohol abuse Status: Chronic Assessment & Plan: 02/24: Monitor for signs of withdraw, CIWS (7) DVT prophylaxis Status: Acute Assessment & Plan: - Lovenox, no evidence of DVT but has superficial thrombus in LE Clinical Quality Measures DVT/VTE Risk/Contraindication: Risk Factor Score Per Nursin RFS Level Per Nursing on Admit: 4+=Very High DESI KESSLER MD Feb 25, 2020 11:22
--- NOTE | 2020-02-25 12:00 | NUR ---
SPOKE WITH THE PT TO COMPLETE THE MED REC PT DENIES TAKING ANY PRESCRIPTION OR OTC MEDICATIONS WHEN I ASKED THE PT WHAT PHARMACY TO PUT ON FILE SO REPLIED THAT SHE DIDNT KNOW- I LISTED SOME AREA PHARMACIES AND SHE STILL SAID SHE WAS UNSURE. I LET THE PT KNOW TO THINK ABOUT WHERE SHE WOULD LIKE FUTURE PRESCRIPTIONS TO BE FILLED AND LET US KNOW
--- NOTE | 2020-02-25 14:14 | NUR ---
"RD ASSESSMENT PMHx: HTN; stroke; CA(uterine); polysubstance use (ETOH, tobacco, THC) PT INTERACTION: Pt was awake and pleasant during nutrition assessment. Pt states current appetite is good. Note avg PO intake 57% x3d, per chart review. Pt states following a regular diet at home, and has no issues with chewing/swallowing food. Pt states no recent issues with nausea, vomiting, constipation, or diarrhea. Note last BM was 7/2, and pt not currently on bowel regimen per chart review. Pt states some recent wt gain, but unsure of amount/timeframe. Note unable to determine recent wt hx, per chart review. ABNORMAL NUTRITION-RELATED LAB VALUES LOW: Cl 88; cr 0.51; Ca 8.3 HIGH: glu 162 Est. kcal needs: 0472-1526 kcal | 15-18 kcal/kg Est. Pro needs: 83-104 g Pro | 0.8-1.0 g Pro/kg PES STATEMENT: Inadequate oral intake (NI-2.1) related to loss of appetite as evidenced by pt interview | avg PO intake 57% x3d INTERVENTION: Continue with current diet order of Regular diet. Pt may benefit from nutrition supplementation if PO intake declines. Will continue to follow and reassess as pt needs, intake, and status change. MONITOR/EVALUATE: PO Intake; Plan of Care; Hydration Status; Weight Status; Lab Values Rena Martinez, MS, RD, LD"
[2020-02-25] MEDS: FUROSEMIDE 40 MG (LASIX) TAB PO SCH (16:35)
[2020-02-25] MEDS: morphine INJ 10 MG/ML 1ML (SYR OR VIAL) IVP PRN (21:19)
[2020-02-26 04:07] VITALS: BP 145/86
[2020-02-26] MEDS: CATHETER FLUSH 10 ML SYR IV SCH ×3 (05:24→21:00)
[2020-02-26 05:36] LABS: BASOPHILS % (AUTO) 0 % (0-10); EOSINOPHILS # (AUTO) 0.2 10^3/uL (0.0-0.3); EOSINOPHILS % (AUTO) 1 % (0-10); HEMATOCRIT 49 % (35-52); HEMOGLOBIN 13.9 G/DL (11.5-16.0); LYMPHOCYTES # (AUTO) 1.1 X 10^3 (1.0-4.0); LYMPHOCYTES % (AUTO) 7 % (12-44); MEAN CORPUSCULAR HEMOGLOBIN 29 PG (25-34); MEAN CORPUSCULAR HGB CONC 28 G/DL (32-36); MEAN CORPUSCULAR VOLUME 103 FL (80-99); MEAN PLATELET VOLUME 8.8 FL (7.4-10.4); MONOCYTES # (AUTO) 1.3 X 10^3 (0.0-1.0); MONOCYTES % (AUTO) 8 % (0-12); NEUTROPHILS # (AUTO) 13.5 X 10^3 (1.8-7.8); NEUTROPHILS % (AUTO) 84 % (42-75); PLATELET COUNT 202 10^3/uL (130-400)
[2020-02-26 05:55] LABS: CHLORIDE 90 MMOL/L (98-107); POTASSIUM 3.2 MMOL/L (3.6-5.0); SODIUM 140 MMOL/L (135-145)
[2020-02-26 05:56] LABS: CALCIUM 8.6 MG/DL (8.5-10.1)
[2020-02-26 05:57] LABS: GLUCOSE 106 MG/DL (70-105)
[2020-02-26 05:58] LABS: CARBON DIOXIDE 41 MMOL/L (21-32)
[2020-02-26 06:01] LABS: GFR ESTIMATED > 60
[2020-02-26 06:02] LABS: BUN/CREATININE RATIO 24
[2020-02-26 06:03] LABS: MAGNESIUM 1.8 MG/DL (1.6-2.4)
[2020-02-26] MEDS: ALBUTEROL/IPRATROP (COMBIVENT RESPIMAT) 4 GM INHALER IH SCH ×3 (06:27→14:33)
[2020-02-26] MEDS: FUROSEMIDE 40 MG (LASIX) TAB PO SCH ×2 (06:55→16:02)
[2020-02-26] MEDS: KCL 20 MEQ TAB (K-DUR) PO SCH (06:55)
--- NOTE | 2020-02-26 07:35 | Pulmonary Progress Note ---
Subjective Time Seen by a Provider: 07:32 Subjective/Events-last exam Pt currently on BiPAP Sepsis Event Evaluation Height, Weight, BMI Height: 5'6.00" Weight: 144lbs. 5.0oz. 65.467414av; 35.00 BMI Method:Stated Exam Exam Vital Signs Date Time Temp Pulse Resp B/P (MAP) Pulse Ox O2 Delivery O2 Flow Rate FiO2 02/26/20 06:29 85 32 91 90.00 02/26/20 04:07 36.5 83 20 145/86 (105) 98 High Flow N/C 10.00 02/26/20 01:49 85 24 92 90.00 02/25/20 23:52 36.5 83 20 117/70 (86) 93 Vapotherm 40.00 100.00 02/25/20 21:13 96 19 90 90.00 02/25/20 19:14 36.9 95 18 115/64 (81) 94 Vapotherm 40.00 100.00 02/25/20 18:28 92 Vapotherm 40.00 100 02/25/20 17:12 89 Vapotherm 40.00 100 02/25/20 15:54 36.9 99 20 117/68 (84) 97 High Flow N/C 10.00 02/25/20 15:35 83 20 94 80.00 02/25/20 12:00 NIV Bilevel 02/25/20 10:47 92 27 90 80.00 02/25/20 10:27 High Flow N/C 10.00 02/25/20 09:00 36.7 02/25/20 09:00 98 18 120/70 (87) 98 High Flow N/C 10.00 02/25/20 08:00 93 High Flow N/C 10.00 02/25/20 08:00 96 23 140/84 (102) 93 High Flow N/C 10.00 I & O 02/26/20 07:00 Intake Total 682 ml Output Total 750 ml Balance -68 ml Height & Weight Height: 5'6.00" Weight: 144lbs. 5.0oz. 65.329422vx; 35.00 BMI Method:Stated General Appearance: Chronically ill, Mild Distress HEENT: Moist Mucous Membranes Neck: Normal Inspection, Supple Respiratory: No Accessory Muscle Use, No Respiratory Distress, Other (Mild expiratory wheezing throughout with scattered rhonchi and diminished breath sounds in both bases right worse than left) Cardiovascular: Regular Rate, Rhythm, No Edema, No Gallop, No JVD, No Murmur Capillary Refill: Less Than 3 Seconds Gastrointestinal: non tender, soft Extremity: Other (Trace pedal edema decreased with chronic venous insufficiency change) Neurologic/Psychiatric: Alert, Oriented x3, No Motor/Sensory Deficits, Normal Mood/Affect Skin: Normal Color, Warm/Dry Results Lab Laboratory Tests 02/25/20 03:12 02/26/20 05:15 Assessment/Plan Assessment/Plan Acute respiratory failure -BiPAP PRN -Trial to Vapotherm and titrate oxygen down as tolerated -Check ABG -Repeat CXR PCT and BNP -Pt is DNR -s/p solumedrol CHF AE with right > L pleural effusion - Lasix 40mg BID -SL IVF Pneumonia - improving -s/p Rocpehin and azithromycin -BC are negative -COVID is negative RAHEL GALLO DO Feb 26, 2020 07:34
[2020-02-26 08:00] VITALS: BP 126/73
[2020-02-26 08:20] LABS: ABG BASE EXCESS 16.8 MMOL/L (-2.5-2.5); ABG OXYGEN SATURATION 99 % (94-100); ABG PCO2 44 MMHG (35-45); ABG PH 7.57 (7.37-7.43); ABG PO2 104 MMHG (79-93); ABG TCO2 42.1 MMOL/L (21.0-31.0)
[2020-02-26 08:23] LABS: ALLENS TEST YES-POS; INSPIRED O2 100%; VENTILATOR NO
[2020-02-26] MEDS: NICOTINE PATCH REMOVAL TP SCH (08:45)
[2020-02-26] MEDS: NICOTINE 21 MG (NICODERM) PATCH TD SCH (08:47)
[2020-02-26] MEDS: LOSARTAN 25 MG (COZAAR) TAB PO SCH (08:47)
--- NOTE | 2020-02-26 09:12 | Cardiology Progress Note ---
Subjective Date Seen by Provider: Feb 26, 2020 Time Seen by Provider: 08:20 Subjective/Events-last exam Patient sitting up at bedside commode. C/o dyspnea. Denies any chest pain or palpitations. Review of Systems General: No Night Sweats; Fatigue, Malaise HEENT: No Visual Changes, No Dysphasia Pulmonary: Dyspnea, Cough Cardiovascular: No: Chest Pain, Palpitations, Orthopnea Gastrointestinal: No: Nausea, Vomiting, Abdominal Pain Genitourinary: No Dysuria, No Frequency Musculoskeletal: No: neck pain, back pain Neurological: Weakness; No: Numbness, Change in speech, Confusion Objective-Cardiology Exam Last Set of Vital Signs Vital Signs 02/26/20 02/26/20 08:00 10:30 Temp 37.0 Pulse 94 Resp 20 B/P (MAP) 126/73 (90) Pulse Ox 91 O2 Delivery Vapotherm O2 Flow Rate 40.00 FiO2 70 Capillary Refill : Less Than 3 Seconds I&O Intake and Output 02/26/20 00:00 Intake Total 652 ml Output Total 1250 ml Balance -598 ml Intake Oral 652 ml Output Urine Total 1250 ml General: Alert, Oriented X3, Mild Distress HEENT: Atraumatic Neck: Supple Lungs: Other (basilar wheezing, shallow breathing and increased work of breathing at rest) Heart: Regular Rate, No Murmurs Abdomen: Normal Bowel Sounds, Soft, No Tenderness, No Masses Extremities: Other (3+ pitting edema bilaterally) Skin: No Rashes Neuro: Sensation Intact, Cranial Nerves 3-12 NL Psych/Mental Status: Mental Status NL, Mood NL Results Lab Laboratory Tests 02/26/20 05:15 A/P-Cardiology Admission Diagnosis Acute respiratory failure Acute congestive heart failure, left ventricular systolic dysfunction Type II myocardial infarction Hypertension Assessment/Plan Status post acute respiratory failure, better at this time, still having some wheezing, on Vapotherm Elevated d-dimer, venous Doppler study is negative Mild elevation in troponin level, no acute EKG changes, probably type II myocardial infarction secondary to hypoxemia Change in mental status, probably secondary to hypoxemia, better at this time Congestive heart failure, acute left ventricular systolic dysfunction, history of left ventricular diastolic dysfunction, normal left ventricular systolic function, responding well to diuretics,continue to monitor. Hypertension, started on metoprolol and losartan, continue to monitor History of marijuana use. Noncompliant with medication COVID IgG is negative, COVID testing is negative Patient was seen and evaluated with Princess, examination performed, management plan was discussed, agree with the current scribed note, I made few changes to the note using Italic font Patient is improving slowly. Still having some shortness of breath maintained on Vapotherm Lungs had bilateral rhonchi and wheezing. Heart is regular Continue on current treatment and monitor Clinical Quality Measures DVT/VTE Risk/Contraindication: Risk Factor Score Per Nursin RFS Level Per Nursing on Admit: 4+=Very High PRINCESS MEJIA Feb 26, 2020 9:12 am JUSTINE ANNE MD Feb 26, 2020 12:50 pm
--- NOTE | 2020-02-26 09:51 | Diagnostic Imaging Report ---
INDICATION: Shortness of air. TECHNIQUE: Single view chest 9:29 AM. CORRELATION STUDY: 02/24/2020 FINDINGS: Combination of effusion along with consolidation of the right lung base persisting. Small left pleural effusion. Heart size is largely obscured but remains enlarged. Severity of vascular congestion and overall edema has improved and diminished from prior. Right-sided central line, stable. IMPRESSION: 1. Decreased severity pulmonary vascular congestion from prior. 2. Combination of effusion along with consolidation right lung basilar and lesser degree left lung base does persist stable to slightly improved. Dictated by: Dictated on workstation # [id number]
[2020-02-26] MEDS: ENOXAPARIN 40 MG/0.4 ML (LOVENOX) SYR SQ SCH (10:28)
--- NOTE | 2020-02-26 10:49 | NUR ---
CM/SS visited with patient for discharge planning. The patient was sitting up in chair and appeared to be comfortable. She was wearing high flow nasal cannula. She did not appear to get short of breath while talking to this sw. According to the patient she is currently unemployed, uninsured, and not receiving any financial assistance. The patient lives with her significant other at [address] [place] [address]. She states her significant other does work. 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 CM/SS will contact Joy to visit with patient about assistance. The patient verbalized that she is completely independent at home and currently. She has not had to use a walker, wheelchair, or cane to ambulate. The patient reports that she does not have to use those here either. She is currently wearing oxygen; however, she is not on oxygen at home. CM/SS explained the home o2 study and setting up oxygen if needed. She verbalized understanding. CM/SS will continue to follow.
[2020-02-26 12:00] VITALS: BP 117/74
--- NOTE | 2020-02-26 13:07 | NUR ---
I HAVE ASSESSED PT AND REVIEWED CHARTING AND AGREE WITH DOCUMENTATION PRECEPTOR.
--- NOTE | 2020-02-26 14:19 | Diagnostic Imaging Report ---
INDICATION: Anasarca and respiratory failure as well as abdominal distention. The liver is enlarged at 24 cm. No discrete liver mass is detected. The portal vein is patent and shows normal direction of flow. Gallbladder is contracted and shows significant wall thickening up to 8 mm. There is some pericholecystic fluid present. There appears to be some sludge within the gallbladder. No biliary ductal dilatation is seen. Pancreas was obscured by bowel gas. Spleen is normal size at 10.2 cm. IVC is unremarkable. Aorta was obscured. Right kidney is 11.8 cm in length and left kidney is 12.4 cm in length. There is some ascites present. IMPRESSION: 1. Hepatomegaly. 2. Abnormal appearance to the gallbladder which is thick-walled and shows some sludge. Acalculous cholecystitis cannot be entirely excluded. There is some upper abdominal ascites present as well. No other significant abnormality is seen. PROCEDURE: Ultrasound abdomen complete. TECHNIQUE: Multiple real-time grayscale images were obtained of the abdomen in various projections. Dictated by: Dictated on workstation # [id number]
[2020-02-26] MEDS ORDERED: ZINC OXIDE 16% OINT (BUTT PASTE) 57 GM TUBE TOP PRN (15:00)
[2020-02-26 16:02] VITALS: BP 119/63
[2020-02-26 19:54] VITALS: BP 134/76
--- NOTE | 2020-02-26 20:30 | Progress Note ---
Subjective Subjective/Events-last exam Patient states that she is feeling better this AM. She is up sitting in chair. Tolerating PO diet. States that she can get to bed side commode and would like her catheter out. Review of Systems Pulmonary: Dyspnea, Cough Cardiovascular: No: Chest Pain, Palpitations Gastrointestinal: No: Nausea, Vomiting, Abdominal Pain, Diarrhea, Constipation Genitourinary: No Dysuria Musculoskeletal: back pain Neurological: Weakness, Incoordination Objective Exam Last Set of Vital Signs Vital Signs Date Time Temp Pulse Resp B/P (MAP) Pulse Ox O2 Delivery O2 Flow Rate FiO2 02/26/20 16:02 36.8 95 22 119/63 (81) 86 Vapotherm 40.00 45.00 02/26/20 14:34 50 Capillary Refill : Less Than 3 Seconds I&O Intake and Output 02/26/20 00:00 Intake Total 652 ml Output Total 1250 ml Balance -598 ml Intake Oral 652 ml Output Urine Total 1250 ml General: Alert, Oriented X3, Cooperative, Moderate Distress (short of breath with minimal activity and converstational dyspnea present) Lungs: Other (+ diffuse wheezing, increased work of breathing) Heart: Regular Rate, No Murmurs Abdomen: Normal Bowel Sounds, Soft, No Tenderness, No Masses Extremities: Other (3+ pitting edema present) Skin: No Rashes, No Breakdown Neuro: Normal Speech, Sensation Intact, Cranial Nerves 3-12 NL Results/Procedures Lab Laboratory Tests 02/26/20 05:15: White Blood Count 16.0H, Red Blood Count 4.79, Hemoglobin 13.9, Hematocrit 49, Mean Corpuscular Volume 103H, Mean Corpuscular Hemoglobin 29, Mean Corpuscular Hemoglobin Concent 28L, Red Cell Distribution Width 21.0H, Platelet Count 202, Mean Platelet Volume 8.8, Neutrophils (%) (Auto) 84H, Lymphocytes (%) (Auto) 7L, Monocytes (%) (Auto) 8, Eosinophils (%) (Auto) 1, Basophils (%) (Auto) 0, Neutrophils # (Auto) 13.5H, Lymphocytes # (Auto) 1.1, Monocytes # (Auto) 1.3H, Eosinophils # (Auto) 0.2, Basophils # (Auto) 0.0, Sodium Level 140, Potassium Level 3.2L, Chloride Level 90L, Carbon Dioxide Level 41H, Anion Gap 9, Blood Urea Nitrogen 12, Creatinine 0.50L, Estimat Glomerular Filtration Rate > 60, BUN/Creatinine Ratio 24, Glucose Level 106H, Calcium Level 8.6, Phosphorus Level 2.0L, Magnesium Level 1.8, B-Type Natriuretic Peptide 390.3H, Procalcitonin 0.05 02/26/20 07:55: Blood Gas Puncture Site RT RAD, Blood Gas Patient Temperature 37.0, Arterial Blood pH 7.57H, Arterial Blood Partial Pressure CO2 44, Arterial Blood Partial Pressure O2 104H, Arterial Blood HCO3 41*H, Arterial Blood Total CO2 42.1H, Arterial Blood Oxygen Saturation 99, Arterial Blood Base Excess 16.8H, Benjie Test YES-POS, Blood Gas Ventilator Setting NO, Blood Gas Inspired Oxygen 100% Microbiology 02/20/20 Blood Culture - Final, Complete No growth Assessment/Plan Assessment/Plan (1) Acute respiratory failure with hypoxia Status: Acute Assessment & Plan: 02/24: Patient on HFNC, Will titrate as tolerated, Dr Sinclair consulted, appreciate recommendations 02/25: Patient continues to require vapotherm 40/40 FiO2, will continue to titrate as tolerated, will likely need oxygen at discharge for home use, PT ordered (2) Anasarca Status: Acute Assessment & Plan: 02/24: Lasix BID, Strict I/Os (3) Acute on chronic systolic CHF (congestive heart failure) Status: Acute Assessment & Plan: 02/24: Cardiology consulted and managing (4) Type 2 AMI (acute myocardial infarction) Status: Acute (5) HTN (hypertension) Status: Chronic Assessment & Plan: 02/24: Continue home meds Qualifiers: Qualified Codes: I10 - Essential (primary) hypertension (6) Alcohol abuse Status: Chronic Assessment & Plan: 02/24: Monitor for signs of withdraw, CIWS (7) DVT prophylaxis Status: Acute Assessment & Plan: - Lovenox, no evidence of DVT but has superficial thrombus in LE Clinical Quality Measures DVT/VTE Risk/Contraindication: Risk Factor Score Per Nursin RFS Level Per Nursing on Admit: 4+=Very High DESI KESSLER MD Feb 26, 2020 20:29
[2020-02-26] MEDS: morphine INJ 10 MG/ML 1ML (SYR OR VIAL) IVP PRN (21:00)
[2020-02-27] VITALS: BP 123/75
[2020-02-27] MEDS: morphine INJ 10 MG/ML 1ML (SYR OR VIAL) IVP PRN (02:40)
[2020-02-27 04:00] VITALS: BP 134/73
[2020-02-27 05:55] LABS: BASOPHILS % (AUTO) 0 % (0-10); EOSINOPHILS # (AUTO) 0.4 10^3/uL (0.0-0.3); EOSINOPHILS % (AUTO) 3 % (0-10); HEMATOCRIT 51 % (35-52); HEMOGLOBIN 14.6 G/DL (11.5-16.0); LYMPHOCYTES % (AUTO) 7 % (12-44); MEAN CORPUSCULAR HEMOGLOBIN 29 PG (25-34); MEAN CORPUSCULAR HGB CONC 29 G/DL (32-36); MEAN CORPUSCULAR VOLUME 101 FL (80-99); MEAN PLATELET VOLUME 9.1 FL (7.4-10.4); MONOCYTES # (AUTO) 1.1 X 10^3 (0.0-1.0); MONOCYTES % (AUTO) 7 % (0-12); NEUTROPHILS # (AUTO) 12.9 X 10^3 (1.8-7.8); NEUTROPHILS % (AUTO) 83 % (42-75); PLATELET COUNT 189 10^3/uL (130-400); RED CELL DISTRIBUTION WIDTH 21.1 % (10.0-14.5); WHITE BLOOD COUNT 15.5 10^3/uL (4.3-11.0)
[2020-02-27 06:10] LABS: CHLORIDE 95 MMOL/L (98-107); POTASSIUM 2.9 MMOL/L (3.6-5.0); SODIUM 138 MMOL/L (135-145)
[2020-02-27] MEDS: CATHETER FLUSH 10 ML SYR IV SCH ×2 (06:10→14:41)
[2020-02-27 06:11] LABS: CALCIUM 8.5 MG/DL (8.5-10.1)
[2020-02-27 06:12] LABS: GLUCOSE 104 MG/DL (70-105)
[2020-02-27 06:13] LABS: CARBON DIOXIDE 33 MMOL/L (21-32)
[2020-02-27 06:16] LABS: GFR ESTIMATED > 60; PHOSPHORUS 1.9 MG/DL (2.3-4.7)
[2020-02-27 06:17] LABS: BUN/CREATININE RATIO 20
[2020-02-27 06:18] LABS: MAGNESIUM 1.8 MG/DL (1.6-2.4)
[2020-02-27] MEDS: KCL 20 MEQ TAB (K-DUR) PO SCH (06:22)
[2020-02-27] MEDS: FUROSEMIDE 40 MG (LASIX) TAB PO SCH ×2 (06:22→16:32)
[2020-02-27] MEDS: ALBUTEROL/IPRATROP (COMBIVENT RESPIMAT) 4 GM INHALER IH SCH ×3 (07:10→14:55)
--- NOTE | 2020-02-27 07:27 | Pulmonary Progress Note ---
Subjective Time Seen by a Provider: 07:22 Subjective/Events-last exam Pt is on Vapotherm now. Sepsis Event Evaluation Height, Weight, BMI Height: 5'6.00" Weight: 144lbs. 5.0oz. 65.194689tc; 35.00 BMI Method:Stated Exam Exam Vital Signs Date Time Temp Pulse Resp B/P (MAP) Pulse Ox O2 Delivery O2 Flow Rate FiO2 02/27/20 07:10 92 Vapotherm 40.00 75 02/27/20 04:00 36.9 87 22 134/73 (93) 94 Vapotherm 40.00 100.00 02/27/20 02:21 92 Vapotherm 40.00 75 02/27/20 00:00 36.9 88 22 123/75 (91) 91 Vapotherm 40.00 100.00 02/26/20 23:29 95 Vapotherm 40.00 75 02/26/20 23:28 99 Vapotherm 40.00 100 02/26/20 21:00 90 Vapotherm 40.00 70 02/26/20 19:54 36.5 94 18 134/76 (95) 91 Vapotherm 40.00 100.00 02/26/20 16:02 36.8 95 22 119/63 (81) 86 Vapotherm 40.00 45.00 02/26/20 14:34 89 Vapotherm 40.00 50 02/26/20 12:00 36.2 88 18 117/74 (88) 94 Vapotherm 40.00 70.00 02/26/20 10:30 91 Vapotherm 40.00 70 02/26/20 09:00 90 Vapotherm 40.00 70 02/26/20 08:00 37.0 94 20 126/73 (90) 90 Vapotherm 40.00 100.00 I & O 02/27/20 07:00 Intake Total 920 ml Output Total 2225 ml Balance -1305 ml Height & Weight Height: 5'6.00" Weight: 144lbs. 5.0oz. 65.926042dr; 35.00 BMI Method:Stated General Appearance: Chronically ill, Mild Distress HEENT: Moist Mucous Membranes Neck: Normal Inspection, Supple Respiratory: No Accessory Muscle Use, No Respiratory Distress, Other (Mild expiratory wheezing throughout with scattered rhonchi and diminished breath sounds in both bases right worse than left) Cardiovascular: Regular Rate, Rhythm, No Edema, No Gallop, No JVD, No Murmur Capillary Refill: Less Than 3 Seconds Gastrointestinal: non tender, soft Extremity: Other (Trace pedal edema decreased with chronic venous insufficiency change) Neurologic/Psychiatric: Alert, Oriented x3, No Motor/Sensory Deficits, Normal Mood/Affect Skin: Normal Color, Warm/Dry Results Lab Laboratory Tests 02/26/20 05:15 02/27/20 05:33 Assessment/Plan Assessment/Plan Acute respiratory failure -BiPAP PRN -Trial to Vapotherm and titrate oxygen down as tolerated -Check ABG -Pt is DNR -s/p solumedrol CHF AE with right > L pleural effusion - Lasix 40mg BID -Start Spironoloactone -SL IVF -BNP is 390 and PCT is normal Hypokalemia -replace and stasrt spironolactone Pneumonia - resolved -s/p Rocpehin and azithromycin -BC are negative -COVID is negative RAHEL GALLO DO Feb 27, 2020 07:27
[2020-02-27] MEDS ORDERED: POTASSIUM PHOSPHATE INJ 30 MM in NS (IVPB) 250 ML IV ONE (07:30)
[2020-02-27 08:00] VITALS: BP 122/79
--- NOTE | 2020-02-27 08:35 | NUR ---
NOTE THAT PER REPORT FROM NOC RN - PICC LINE RN WAS CALLED ABOUT PICC LINE -- PICC LINE RN TO ROOM AND VOICED TO THIS RN THAT SHE FLUSHED AND PULLED BACK BLOOD TO BOTH LUMENS -- WORKING FINE
[2020-02-27] MEDS: LOSARTAN 25 MG (COZAAR) TAB PO SCH (08:38)
[2020-02-27] MEDS: NICOTINE 21 MG (NICODERM) PATCH TD SCH (08:39)
[2020-02-27] MEDS: ENOXAPARIN 40 MG/0.4 ML (LOVENOX) SYR SQ SCH (08:40)
[2020-02-27] MEDS ORDERED: SPIRONOLACTONE 25 MG (ALDACTONE) TAB PO SCH (09:00)
--- NOTE | 2020-02-27 09:20 | Physical Therapy Evaluation ---
PT Evaluation-General Medical Diagnosis Admission Date Feb 20, 2020 at 08:12 Medical Diagnosis: ARF Onset Date: Feb 20, 2020 Therapy Diagnosis Therapy Diagnosis: impaired endurance, strength Height/Weight Height (Feet): 5 Height (Inches): 6.00 Weight (Pounds): 144 Weight (Ounces): 5.0 Precautions Precautions/Isolations: Fall Prevention, Standard Precautions Weight Bear Status Right Lower Extremity: Right Weight Bearing/Tolerated Left Lower Extremity: Left Weight Bearing/Tolerated Referral Physician: Lexi Donnelly MD Reason for Referral: Evaluation/Treatment Medical History Additional Medical History Past Medical History Surgeries: Hysterectomy, Orthopedic, Tonsillectomy, Tubal Ligation Cardiac: Hypertension Neurological: Stroke : No Reproductive: Yes (CERVICAL CANCER) Sexually Transmitted Disease: No Hysterectomy Cancer: Uterine Reviewed History: Yes Social History Home: Single Level Current Living Status: Significant Other Entry Into Home: Stairs With Railing PT Steps Into Home: 3 Prior Prior Level of Function SCALE: Activities may be completed with or without assistive devices. 6-Yertulxwpw-dtyzcbu completes the activity by him/herself with no assistance from a helper. 5-Set-up or Clean-up Assistance-helper sets up or cleans up; patient completes activity. [place] assists only prior to or following the activity. 4-Supervision or Touching Assistance-helper provides verbal cues and/or touching/steadying and/or contact guard assistance as patient completes activity. Assistance may be provided throughout the activity or intermittently. 3-Partial/Moderate Assistance-helper does LESS THAN HALF the effort. [place] lifts, holds or supports trunk or limbs, but provides less than half the effort. 2-Substantial/Maximal Assistance-helper does MORE THAN HALF the effort. [place] lifts or holds trunk or limbs and provides more than half the effort. 7-Ykxdbhjlv-tyhpnr does ALL the effort. Patient does none of the effort to complete the activity. Or, the assistance of 2 or more helpers is required for the patient to complete the activity. If activity was not attempted, code reason: 7-Patient Refused. 9-Not Applicable-not attempted and the patient did not perform the activity before the current illness, exacerbation or injury. 10-Not Attempted due to Environmental Limitations-(lack of equipment, weather restraints, etc.). 88-Not Attempted due to Medical Conditions or Safety Concerns. Bed Mobility: 6 Transfers (B,C,W/C): 6 Gait: 6 Stairs: 6 Indoor Mobility (Ambulation): Independent Stairs: Independent PT Evaluation-Current Subjective Patient in recliner pre tx, agrees to PT, has 4/10 pain in abdomen. Pt/Family Goals to be independent at home Objective Patient Orientation: Person, Place, Situation Attachments: Oxygen, IV vapotherm ROM/Strength ROM Lower Extremities limited due to BLE swelling Strength Lower Extremities BLE gross 4+/5 except for hip flexion 3/5 bilaterally Sensory Vision: Functional Hearing: Functional Sensation Right Lower Extremit: Intact Sensation Left Lower Extremity: Intact Transfers Sit to Stand (QC): 6 Chair/Wnc-et-Mbnbi Xfer(QC): 6 Gait Does the Patient Walk?: Yes Mode of Locomotion: Walk Anticipated Mode of Locomotion: Walk Walk 10 feet (QC): 6 Walk 50 ft with 2 Turns(QC): 6 Distance: 50' Gait Assistive Device: None Comments/Gait Description Patient ambulated back and forth, limited due to her vapotherm, ambulated independently without an assistive device, slightly SOB after 50' Balance Sitting Static: Normal Sitting Dynamic: Normal Standing Static: Normal Standing Dynamic: Normal Treatment BLE seated exercises x20 (AP, LAQ) Assessment/Needs patient has impaired endurance, strength. Ambulates without an AD. Patient in recliner post tx with nurse call, phone, tray, all needs met. Rehab Potential: Fair PT [facility] Goals Lookback Coordinator Goals PT Lookback Coordinator Goals Time Frame: Mar 05, 2020 Roll Left & Right (QC): 6 Sit to Lying (QC): 6 Lying-Sitting on Side/Bed(QC): 6 Sit to Stand (QC): 6 Chair/Iru-qz-Mtids Xfer(QC): 6 Toilet Transfer (QC): 6 Walk 10 feet (QC): 6 Walk 50ft with 2 Turns (QC): 6 Walk 150 ft (QC): 6 PT Plan Problem List Problem List: Activity Tolerance, Functional Strength, Safety, Balance, Gait, Transfer Treatment/Plan Treatment Plan: Continue Plan of Care Treatment Plan: Education, Functional Activity [place], Functional Strength, Gait, Safety, Therapeutic Exercise, Transfers Treatment Duration: Mar 05, 2020 Frequency: 6 times per week Estimated Hrs Per Day: .25 hour per day Patient and/or Family Agrees t: Yes Safety Risks/Education Patient Education: Gait Training, Transfer Techniques, Correct Positioning, Safety Issues Teaching Recipient: Patient Teaching Methods: Demonstration, Discussion Response to Teaching: Reinforcement Needed Discharge Recommendations Plan Patient will perform bed mobility and transfer training, balance and endurance training, functional strengthening, stair training, gait training, and educat ion, to improve functional mobility and independence at home. Therapy Discharge Recommendati: Home & Family Time/GCodes Time In: 900 Time Out: 910 Total Billed Treatment Time: 10 Total Billed Treatment 1 visit EVL 10' GRISELDA SMITH PT Feb 27, 2020 09:20
[2020-02-27] MEDS: NICOTINE PATCH REMOVAL TP SCH (09:55)
--- NOTE | 2020-02-27 10:47 | Cardiology Progress Note ---
Subjective Date Seen by Provider: Feb 27, 2020 Time Seen by Provider: 10:45 Subjective/Events-last exam Patient is sitting up in chair, denies any increased dyspnea. Review of Systems General: No Chills, No Night Sweats, No Fatigue, No Malaise, No Appetite, No Other HEENT: No Head Aches, No Visual Changes, No Eye Pain, No Ear Pain, No Dysphasia, No Sinus Congestion, No Post Nasal Drip, No Sore Throat, No Other Pulmonary: Dyspnea; No Cough, No Pleuritic Chest Pain, No Other Cardiovascular: Edema; No: Chest Pain, Palpitations, Orthopnea, Paroxysmal Noc. Dyspnea, Lt Headedness, Other Objective-Cardiology Exam Last Set of Vital Signs Vital Signs 02/27/20 02/27/20 08:00 08:03 Temp 36.2 Pulse 92 Resp 18 B/P (MAP) 122/79 (93) Pulse Ox 90 O2 Delivery Vapotherm O2 Flow Rate 40.00 FiO2 70 Capillary Refill : Less Than 3 Seconds I&O Intake and Output 02/27/20 00:00 Intake Total 1120 ml Output Total 2375 ml Balance -1255 ml Intake Oral 1120 ml Output Urine Total 1925 ml Post Void Residual 350 ml Stool Total 100 ml Bladder Scan Volume Amount 200 ml # Bowel Movements 1 General: Alert, Oriented X3, Cooperative, Moderate Distress (short of breath with minimal activity and converstational dyspnea present) HEENT: Atraumatic Neck: Supple Lungs: Other (+ diffuse wheezing, increased work of breathing) Heart: Regular Rate, No Murmurs Abdomen: Normal Bowel Sounds, Soft, No Tenderness, No Masses Extremities: Other (2+ pitting edema present) Skin: No Rashes, No Breakdown Neuro: Normal Speech, Sensation Intact, Cranial Nerves 3-12 NL Psych/Mental Status: Mental Status NL, Mood NL Results Lab Laboratory Tests 02/27/20 05:33 A/P-Cardiology Admission Diagnosis Acute respiratory failure Acute congestive heart failure, left ventricular systolic dysfunction Type II myocardial infarction Hypertension Assessment/Plan Status post acute respiratory failure, better at this time, still having some wheezing, on Vapotherm Hypokalemia, receiving replacement. Reevaluate metabolic profile tomorrow Elevated d-dimer, venous Doppler study is negative Mild elevation in troponin level, no acute EKG changes, probably type II myocardial infarction secondary to hypoxemia Change in mental status, probably secondary to hypoxemia, better at this time Congestive heart failure, acute left ventricular systolic dysfunction, history of left ventricular diastolic dysfunction, normal left ventricular systolic function, responding well to diuretics,continue to monitor. Hypertension, started on metoprolol and losartan, continue to monitor History of marijuana use. Noncompliant with medication COVID IgG is negative, COVID testing is negative Patient was seen and evaluated with Princess, examination performed, management plan was discussed, agree with the current scribed note, I made few changes to the note using Italic font Patient was seen at bedside, sitting comfortably, reporting that he is feeling better, breathing better Swelling is improving Noted to have hypokalemia, receiving oral and IV replacement. I will monitor electrolytes and blood pressure Clinical Quality Measures DVT/VTE Risk/Contraindication: Risk Factor Score Per Nursin RFS Level Per Nursing on Admit: 4+=Very High PRINCESS MEJIA Feb 27, 2020 10:47 JUSTINE ANNE MD Feb 27, 2020 11:23
[2020-02-27] MEDS ORDERED: POTASSIUM CL 10MEQ/50ML IVPB 50 ML IV SCH ×2 (11:00)
[2020-02-27] MEDS ORDERED: POTASSIUM CL 10MEQ/50ML IVPB 200 ML IV ONE (11:35)
[2020-02-27] MEDS: POTASSIUM CL 10MEQ/50ML IVPB 50 ML IV SCH ×4 (11:39→14:39)
[2020-02-27 12:00] VITALS: BP 115/76
--- NOTE | 2020-02-27 13:22 | NUR ---
"RD ASSESSMENT PMHx: HTN; stroke; CA(uterine); polysubstance use (ETOH; THC; tobacco) PT INTERACTION: Pt was awake and pleasant during nutrition follow-up. Pt states her appetite is good. Note avg PO intake of 45% x2d and that it has been steadily decreasing per meal, per chart review. Pt states no issues with nausea, vomiting, or constipation since last assessment. Pt states some issues with diarrhea since last assessment. Note last BM was 02/25 and pt not currently on bowel regimen, per chart review. ABNORMAL NUTRITION-RELATED LAB VALUES LOW: K 2.9; Cl 95; cr 0.50; phos 1.9 HIGH: Est. kcal needs: 1425 kcal | 15 kcal/kg Est. Pro needs: 77 g Pro | 0.8 g Pro/kg PES STATEMENT: Inadequate oral intake (NI-2.1) related to loss of appetite | diarrhea as evidenced by pt interview | avg PO intake 45% x2d INTERVENTION: Continue with current diet order of Regular diet. Pt stated having issues chewing food, so pt may benefit from DYS3 Advanced diet for tolerance. Add Ensure Enlive (vary) to meals TID, for increased kcal intake. Provides 350 kcal and 13 g Pro per serving. MONITOR/EVALUATE: PO Intake; Plan of Care; Hydration Status; Weight Status; Lab Values Rena Martinez, MS, RD, LD"
--- NOTE | 2020-02-27 13:44 | Discharge Summary ---
Diagnosis/Chief Complaint Date of Admission Feb 20, 2020 at 08:12 Date of Discharge 02/27/20 Admission Diagnosis Admission Diagnosis See problem list Discharge Diagnosis See Below Problems/Diagnosis: (1) Acute respiratory failure with hypoxia Assessment & Plan: 02/24: Patient on HFNC, Will titrate as tolerated, Dr Sinclair consulted, appreciate recommendations 02/25: Patient continues to require vapotherm 40/40 FiO2, will continue to titrate as tolerated, will likely need oxygen at discharge for home use, PT ordered 02/26: Discussed her inability to titrate down off the oxygen, patient decided to go home with Hospice after options were discussed Status: Acute (2) Anasarca Assessment & Plan: 02/24: Lasix BID, Strict I/Os Status: Acute (3) Acute on chronic systolic CHF (congestive heart failure) Assessment & Plan: 02/24: Cardiology consulted and managing Status: Acute (4) Type 2 AMI (acute myocardial infarction) Status: Acute (5) HTN (hypertension) Assessment & Plan: 02/24: Continue home meds Qualifiers: Qualified Codes: I10 - Essential (primary) hypertension Status: Chronic (6) Alcohol abuse Assessment & Plan: 02/24: Monitor for signs of withdraw, CIWS Status: Chronic (7) DVT prophylaxis Assessment & Plan: - Lovenox, no evidence of DVT but has superficial thrombus in LE Status: Acute Discharge Summary-Simple/Stand Consultations Dr Kearns: Cardiology Dr Sinclair: Pulmonology Discharge Physical Examination Allergies: Coded Allergies: No Known Drug Allergies (Verified , 01/22/09) Vitals & I&Os Vital Sign - Last 12Hours Date Time Temp Pulse Resp B/P (MAP) Pulse Ox O2 Delivery O2 Flow Rate FiO2 02/27/20 12:00 36.3 84 20 115/76 (89) 94 Vapotherm 30.00 60.00 02/27/20 11:20 75 Intake and Output 02/27/20 00:00 Intake Total 920 ml Output Total 2225 ml Balance -1305 ml General Appearance: Alert, Oriented X3, Moderate Distress (with any activity) Respiratory: Other (diminished breath sounds, increased work of breathing with conversational dypnea) Cardiovascular: Regular Rate, No Murmurs Abdominal: Normal Bowel Sounds, Soft, No Tenderness Extremities: Other (3+ pitting edema bilaterally) Neuro: Normal Speech, Cranial Nerves 3-12 NL Hospital Course Was the Problem List Reviewed?: Yes See final discharge diagnosis. Discussion & Recommendations 59 yo F that presented in respiratory failure with anasarca and was placed in ICU on bipap. Dr Sinclair and Dr Kearns consulted on patient. She was found to have fluid overload and given lasix for diuresis. Patient did not have home oxygen requirement. Patient's roommate works at [employer] otherwise she has not had any travel. COVID neg during visit. She was then titrated down to vapotherm and over the course of 3 days did not make any improved with oxygen requirements. Patient wanted to go home and hospice services were discussed. Patient decided she wanted to go home with hospice and arrangements were made. Discharge Condition at discharge Poor Instructions to patient/family Please see electronic discharge instructions given to patient. Discharge Medications Reviewed and agree with Discharge Medication list on patient's Discharge Instruction sheet Clinical Quality Measures DVT/VTE Risk/Contraindication: Risk Factor Score Per Nursin RFS Level Per Nursing on Admit: 4+=Very High DESI KESSLER MD Feb 27, 2020 13:44
--- NOTE | 2020-02-27 13:47 | Discharge Summary ---
Discharge [facility] Reconcile Patient Problems Problems Reviewed?: Yes Discharge Medications New, Converted or Re-Newed RX: Other Patient Instructions Goal/Follow Up Appt: Home on Hospice Activity & Diet Discharge Diet: No Restrictions Activity as Tolerated: Yes DESI KESSLER MD Feb 27, 2020 13:47
--- NOTE | 2020-02-27 15:27 | NUR ---
FINAL DISCHARGE PLAN: Patient will discharge today to home with Erika barraza. He ride is to be here around 5 pm. She is requiring O2 at 8-10 L NC and [employer] will deliver the E-tank x 2 for her to use until concentrator can be set up in the home. CALL [employer] @ [phone] and let Erick, who is after hours bellman driver, to let him know patient is leaving the hospital. They will meet her at home to set up the concentrator. CALL Erika @ [phone]. Leave a message for on-call RN to call you back....she will meet patient at home as well.
--- NOTE | 2020-02-27 16:05 | NUR ---
Pastoral care visit.
[2020-02-27 16:15] VITALS: BP 120/75
[2020-02-27 17:48] VITALS: BP 120/70
== END 2020-02-27 17:58 | disposition hospice, home (50) | DRG 189 ==
LOC: EDUNIT# 05:57 → ER 06:01 → ICU 08:12 → 4TH 02-25 09:52
PROVIDERS: ADMIT Family Medicine; ATTEND Family Medicine
DX: J96.01 Acute respiratory failure with hypoxia (principal); I50.21 Acute systolic (congestive) heart failure; I21.A1 Myocardial infarction type 2; E87.1 Hypo-osmolality and hyponatremia; I11.0 Hypertensive heart disease with heart failure; J44.9 Chronic obstructive pulmonary disease, unspecified; Z66 Do not resuscitate; E66.9 Obesity, unspecified; I87.8 Other specified disorders of veins; R60.1 Generalized edema; E87.5 Hyperkalemia; F17.210 Nicotine dependence, cigarettes, uncomplicated; Z20.828 Contact with and (suspected) exposure to other viral communicable diseases; Z86.73 Personal history of transient ischemic attack (TIA), and cerebral infarction without residual deficits; Z85.41 Personal history of malignant neoplasm of cervix uteri; Z91.19 Patient's noncompliance with other medical treatment and regimen; Z68.37 Body mass index [BMI] 37.0-37.9, adult
CPT/HCPCS: 36415; 36569; 36600; 51702; 71045; 74018; 76700; 76937; 80048; 80053; 80306; 81000; 82533; 82728; 82805; 83605; 83615; 83690; 83735; 83880; 84100; 84145; 84484; 85007; 85025; 85027; 85379; 85384; 85610; 85730; 86141; 86769; 87040; 87635; 93005; 93041; 93306; 93970; 94640; 94660; 94760; 96374; 96375; 99291

== ENCOUNTER 2020-12-30 14:08 | Inpatient (IN) | payer MEDICAID ==
[~2020-12-30] VITALS: Ht 167 cm; Wt 89.5 kg
[2020-12-30] MEDS ORDERED: PIPERACILLIN SODIUM/TAZOBACTAM 4.5 GM in NS (IVPB) 100 ML IV ONE (14:45)
--- NOTE | 2020-12-30 14:50 | ED Upper Extremity ---
General Chief Complaint: Bite-Animal/Human/Insect Stated Complaint: L MIDDLE FINGER INFECTED CAT BITE Nursing Triage Note: PT STATES SHE WAS BIT BY A FERAL CAT THAT SHE HAD IN A CAGE ABOUT 10 DAYS AGO. THIRD FINGER LT HAND SWOLLEN AND DISCOLORED. STATES SHE HAS HAD A COUPLE DRINKS TODAY BECAUSE IT HURTS. PT IS ON HOSPICE "BECAUSE I DON'T BREATHE GOOD." Nursing Sepsis Screen: No Definite Risk Source: patient Exam Limitations: no limitations History of Present Illness Date Seen by Provider: December 30, 2020 Time Seen by Provider: 14:49 Initial Comments To ER by private vehicle with reports of an infected cat bite to the left middle finger. She was bitten by a feral cat that she had in a cage. She was trying to clean the cage with a cat towards the back of a cage about 10 days ago. She underestimated the ferocity of this cat and it bit her middle finger. She has tried a multitude of home remedies (mostly alcohol ingestion) which have been unsuccessful in curing this infection. She reports that she drinks alcohol daily. She is on hospice with [facility] for "respiratory" and cannot otherwise elaborate. Records indicated for congestive heart failure. She is DO NOT RESUSCITATE status. Onset: just prior to arrival Severity: moderate Pain/Injury Location: left 3rd finger Modifying Factors: Worse With Movement Allergies and Home Medications Allergies Coded Allergies: No Known Drug Allergies (Verified , 01/22/09) Patient Home Medication List Home Medication List Reviewed: Yes Review of Systems Constitutional: see HPI; No chills, No fever EENTM: see HPI Respiratory: no symptoms reported Cardiovascular: no symptoms reported Genitourinary: no symptoms reported Musculoskeletal: no symptoms reported Skin: no symptoms reported Psychiatric/Neurological: No Symptoms Reported Past Tosjiwp-Pcflqx-Cwtgyk Hx Patient Social History Alcohol Use: Regular Use Number of Drinks Today: AA Alcohol Beverage of Choice: Beer Drug of Choice: CANNIBUS Smoking Status: Current Everyday Smoker Type Used: Cigarettes 2nd Hand Smoke Exposure: Yes Recent Infectious Disease Expo: No Recent Hopitalizations: Yes Immunizations Up To Date Tetanus Booster (TDap): Unknown Past Medical History Surgeries: Yes (HERNIA) Hysterectomy, Orthopedic, Tonsillectomy, Tubal Ligation Respiratory: Yes COPD Cardiac: Yes Heart Attack, Hypertension Neurological: Yes Stroke Reproductive Disorders: Yes (CERVICAL CANCER) SURVEILLANCE AGENT History: Hysterectomy Sexually Transmitted Disease: No Genitourinary: No Gastrointestinal: No Musculoskeletal: No Endocrine: No HEENT: No Cancer: Yes Cervical, Uterine Psychosocial: No Integumentary: Yes (CELLULITIS) Blood Disorders: No Family Medical History Patient reports no known family medical history. No Pertinent Family Hx Physical Exam Vital Signs Vital Signs - First Documented 12/30/20 14:16 Temp 36.7 Pulse 107 Resp 20 B/P (MAP) 121/66 (84) Pulse Ox 95 O2 Delivery Room Air Capillary Refill : Less Than 3 Seconds Height, Weight, BMI Height: 5'6.00" Weight: 144lbs. 5.0oz. [id number]; 31.00 BMI Method:Stated General Appearance: WD/WN, no apparent distress, other (Alert. Walks without assistance.) HEENT: PERRL/EOMI, normal ENT inspection Neck: non-tender, full range of motion Respiratory: no respiratory distress, no accessory muscle use Gastrointestinal: normal bowel sounds, soft Shoulder: normal inspection, non-tender Elbow/Forearm: normal inspection, non-tender, Left Wrist: Yes normal inspection, Yes non-tender Hand: Left, swelling (The left middle finger is erythematous and swollen with brisk capillary refill of the tip. There are 2 draining puncture wounds to the dorsal aspect of the finger over the middle phalanx. Both of these are profusely draining purulent material. Culture of this collected and sent to lab. The erythema stops at the MCP joint and does not extend proximal to that.) Neurologic/Tendon: normal sensation, normal motor functions, normal tendon functions Neurologic/Psychiatric: alert, normal mood/affect, oriented x 3 Skin: normal color, warm/dry Progress/Results/Core Measures Results/Orders Lab Results Laboratory Tests Test 12/30/20 14:50 Range/Units White Blood Count 14.6 H 4.3-11.0 10^3/uL Red Blood Count 4.26 3.80-5.11 10^6/uL Hemoglobin 14.6 11.5-16.0 g/dL Hematocrit 45 35-52 % Mean Corpuscular Volume 106 H 80-99 fL Mean Corpuscular Hemoglobin 34 25-34 pg Mean Corpuscular Hemoglobin Concent 32 32-36 g/dL Red Cell Distribution Width 13.5 10.0-14.5 % Platelet Count 369 130-400 10^3/uL Mean Platelet Volume 9.1 9.0-12.2 fL Immature Granulocyte % (Auto) 1 % Neutrophils (%) (Auto) 71 42-75 % Lymphocytes (%) (Auto) 18 12-44 % Monocytes (%) (Auto) 9 0-12 % Eosinophils (%) (Auto) 1 0-10 % Basophils (%) (Auto) 0 0-10 % Neutrophils # (Auto) 10.4 H 1.8-7.8 X 10^3 Lymphocytes # (Auto) 2.7 1.0-4.0 X 10^3 Monocytes # (Auto) 1.3 H 0.0-1.0 X 10^3 Eosinophils # (Auto) 0.1 0.0-0.3 10^3/uL Basophils # (Auto) 0.0 0.0-0.1 10^3/uL Immature Granulocyte # (Auto) 0.1 0.0-0.1 10^3/uL Neutrophils % (Manual) 68 % Lymphocytes % (Manual) 18 % Monocytes % (Manual) 8 % Eosinophils % (Manual) 1 % Reactive Lymphocytes 5 % Blood Morphology Comment NORMAL Sodium Level 137 135-145 MMOL/L Potassium Level 4.3 3.6-5.0 MMOL/L Chloride Level 100 98-107 MMOL/L Carbon Dioxide Level 19 L 21-32 MMOL/L Anion Gap 18 H 5-14 MMOL/L Blood Urea Nitrogen 8 7-18 MG/DL Creatinine 0.70 0.60-1.30 MG/DL Estimat Glomerular Filtration Rate > 60 BUN/Creatinine Ratio 11 Glucose Level 105 70-105 MG/DL Calcium Level 9.5 8.5-10.1 MG/DL Corrected Calcium 9.6 8.5-10.1 MG/DL Total Bilirubin 0.7 0.1-1.0 MG/DL Aspartate Amino Transf (AST/SGOT) 188 H 5-34 U/L Alanine Aminotransferase (ALT/SGPT) 76 H 0-55 U/L Alkaline Phosphatase 260 H 40-136 U/L Total Protein 8.7 H 6.4-8.2 GM/DL Albumin 3.9 3.2-4.5 GM/DL Serum Alcohol 239 H <10 MG/DL My Orders Orders - KEZIA LINDSEY NOVELTY CHAIN MAKER Cbc With Automated Diff (12/30/20 14:45) Alcohol (12/30/20 14:45) Comprehensive Metabolic Panel (12/30/20 14:45) Ed Iv/Invasive Line Start (12/30/20 14:45) Wound Culture (12/30/20 14:45) Piperacillin Sodium/Tazobactam (Zosyn Vi (12/30/20 14:45) Blood Culture (12/30/20 14:45) Manual Differential (12/30/20 14:50) Medications Given in ED Current Medications Medications Dose Ordered Sig/Kristofer Route Start Time Stop Time Status Last Admin Dose Admin Piperacillin Sod/ Tazobactam Sod 4.5 gm/Sodium Chloride 100 ml @ 200 mls/hr ONCE ONCE IV 12/30/20 14:45 12/30/20 15:14 DC 12/30/20 15:40 200 MLS/HR Vital Signs/I&O 12/30/20 14:16 Temp 36.7 Pulse 107 Resp 20 B/P (MAP) 121/66 (84) Pulse Ox 95 O2 Delivery Room Air Blood Pressure Mean: 84 Departure Communication (Admissions) Time/Spoke to Admitting Phy: 15:[address] Donnelly. Will admit on Zosyn. Spoke with Dr. REED, he will consult. Impression Primary Impression: Cat bite Additional Impressions: Cellulitis of finger of left hand Alcohol intoxication Hospice care patient Disposition: ADMITTED INPATIENT Condition: Stable Admissions Decision to Admit Reason: Admit from ER (General) Decision to Admit/Date: December 30, 2020 Time/Decision to Admit Time: 15:48 Departure-Patient Inst. Referrals: DESI DONNELLY MD (PCP/Family) Primary Care Physician Images Extremities-Upper 1 - Other-See Progress Note 2 - Moderate 3 - Other-See Progress Note KEZIA LINDSEY NOVELTY CHAIN MAKER December 30, 2020 14:50
[2020-12-30 15:09] LABS: BASOPHILS % (AUTO) 0 % (0-10); EOSINOPHILS # (AUTO) 0.1 10^3/uL (0.0-0.3); EOSINOPHILS % (AUTO) 1 % (0-10); HEMATOCRIT 45 % (35-52); HEMOGLOBIN 14.6 g/dL (11.5-16.0); LYMPHOCYTES # (AUTO) 2.7 X 10^3 (1.0-4.0); LYMPHOCYTES % (AUTO) 18 % (12-44); MEAN CORPUSCULAR HEMOGLOBIN 34 pg (25-34); MEAN CORPUSCULAR HGB CONC 32 g/dL (32-36); MEAN CORPUSCULAR VOLUME 106 fL (80-99); MEAN PLATELET VOLUME 9.1 fL (9.0-12.2); MONOCYTES # (AUTO) 1.3 X 10^3 (0.0-1.0); MONOCYTES % (AUTO) 9 % (0-12); NEUTROPHILS # (AUTO) 10.4 X 10^3 (1.8-7.8); NEUTROPHILS % (AUTO) 71 % (42-75); PLATELET COUNT 369 10^3/uL (130-400); WHITE BLOOD COUNT 14.6 10^3/uL (4.3-11.0)
[2020-12-30 15:27] LABS: ALBUMIN 3.9 GM/DL (3.2-4.5); CHLORIDE 100 MMOL/L (98-107); POTASSIUM 4.3 MMOL/L (3.6-5.0); SODIUM 137 MMOL/L (135-145)
[2020-12-30 15:28] LABS: CALCIUM 9.5 MG/DL (8.5-10.1)
[2020-12-30 15:29] LABS: GLUCOSE 105 MG/DL (70-105); TOTAL PROTEIN 8.7 GM/DL (6.4-8.2)
[2020-12-30 15:30] LABS: CARBON DIOXIDE 19 MMOL/L (21-32)
[2020-12-30 15:31] LABS: BILIRUBIN,TOTAL 0.7 MG/DL (0.1-1.0)
[2020-12-30 15:33] LABS: ALKALINE PHOSPHATASE 260 U/L (40-136); GFR ESTIMATED > 60
[2020-12-30 15:34] LABS: BUN/CREATININE RATIO 11
[2020-12-30 15:36] LABS: ALANINE AMINOTRANSFERASE 76 U/L (0-55)
[2020-12-30 15:45] LABS: EOSINOPHILS % (MANUAL) 1 %; LYMPHOCYTES % (MANUAL) 18 %; MONOCYTES % (MANUAL) 8 %; NEUTROPHILS % (MANUAL) 68 %; RBC MORPH NORMAL; REACTIVE LYMPHOCYTES 5 %
[2020-12-30] MEDS ORDERED: NICOTINE 21 MG (NICODERM) PATCH TD ONE (16:30)
[2020-12-30 16:42] VITALS: BP 122/78
[2020-12-30] MEDS ORDERED: 1/2 NS IV SOLUTION 1,000 ML IV PRN (16:45)
[2020-12-30] MEDS ORDERED: SENNA W/DOCUSATE (SENOKOT S) TABLET PO PRN (16:45)
[2020-12-30] MEDS ORDERED: LORazepam INJ 2 MG/ML (ATIVAN) VIAL IM/IV PRN (16:45)
[2020-12-30] MEDS ORDERED: LORazepam 1 MG (ATIVAN) TAB PO PRN (16:45)
[2020-12-30] MEDS ORDERED: ONDANSETRON 4 MG/2 ML (SDV) Z0FRAN IV PRN (16:45)
[2020-12-30] MEDS ORDERED: ONDANSETRON 4 MG (ZOFRAN) ORAL DISSOLVE TAB SL PRN (16:45)
[2020-12-30] MEDS ORDERED: D5 1/2 NS 1000 ML IV SOLUTION 1,000 ML IV PRN (16:45)
[2020-12-30] MEDS ORDERED: ANTACID SUSP 30 ML UDC (MYLANTA) PO PRN (16:45)
[2020-12-30] MEDS ORDERED: LORazepam INJ 2 MG/ML (ATIVAN) VIAL IV PRN (16:45)
[2020-12-30] MEDS ORDERED: CATHETER FLUSH 10 ML SYR IV PRN (16:45)
[2020-12-30] MEDS: LACTATED RINGERS 1,000 ML IV SCH (17:33)
[2020-12-30 17:46] VITALS: BP 121/66
[2020-12-30] MEDS ORDERED: RT-ALBUTEROL/IPRATROPIUM 3 ML (DUONEB) VIAL INH PRN (18:00)
[2020-12-30] MEDS ORDERED: TETANUS,DIPTH,PERTUSS P/F (BOOSTRIX) 0.5 ML VIAL IM ONE (19:30)
[2020-12-30 19:39] VITALS: BP 113/68
[2020-12-30] MEDS: MICONAZOLE 2% POWDER (DESENEX AF) 90 GM TOP SCH (20:33)
[2020-12-30] MEDS: MAGNESIUM OXIDE (MAG-OX)400 MG TAB PO SCH (20:33)
[2020-12-30] MEDS: HYDROcodone/APAP 5 MG/325 MG (LORTAB) TAB PO PRN (20:34)
[2020-12-30] MEDS: RT-ALBUTEROL/IPRATROPIUM 3 ML (DUONEB) VIAL INH SCH (20:59)
[2020-12-30] MEDS: morphine (ROXINOL) 10 MG/0.5 ML oral conc 0.5 ML PO PRN ×4 (21:23→23:02)
[2020-12-30] MEDS: PIPERACILLIN/TAZO 4.5 GM/NS 100 ML IV SCH ×2 (22:25)
--- NOTE | 2020-12-30 22:27 | CONSULTATION REPORT ---
DATE OF SERVICE: 12/30/2020 INPATIENT CONSULTATION REASON FOR CONSULTATION: Left long finger cellulitis, status post cat bite. HISTORY OF PRESENT ILLNESS: The patient is a 60-year-old female who by report on hospice for [id number] congestive heart failure, who presented to the emergency room with a swollen, painful left long finger. She reports that she was bitten by a feral cat approximately 10 plus days ago. The cat bit her long finger. She has tried home remedies and reports that she was sent by hospice due to the appearance of the finger. When asked if she has had a fever, she reports, "_hell if I know." PHYSICAL EXAMINATION: Her left long finger is diffusely erythematous. This extends from the tip to just distal to the metacarpophalangeal joint. There is what appears to be puncture wound on the dorsal aspect of the middle phalanx area as well as the volar aspect of the distal phalanx area. There is a foul smelling purulence that can be expressed from the puncture wounds, but there is no gross fluctuance. She is nontender over the flexor tendons and has no pain with passive extension of the finger in her flexor tendons. IMPRESSION: Left long finger cellulitis secondary to cat bite. PLAN: I would recommend antibiotic coverage that is specific for Pasteurella as this is most likely source from a cat bite. Currently, I see no need for surgical intervention. However, these bites can be quite virulent and oftentimes result in extensor tendon rupture. We will follow the patient while hospitalized. Thank you for the consultation. Job ID: [id number] DocumentID: [id number] Dictated Date: 12/30/2020 17:41:07 Senior Payroll Specialist Date: 12/30/2020 22:26:12 Dictated By: BRIT REED MD [facility]
[2020-12-30 23:04] VITALS: BP 110/63
[2020-12-31] MEDS: LACTATED RINGERS 1,000 ML IV SCH ×2 (00:17→05:34)
[2020-12-31] MEDS ORDERED: MORP100S3 PO ×2 (00:44→10:27)
[2020-12-31] MEDS ORDERED: DOCU-143 PO (00:44)
[2020-12-31] MEDS ORDERED: IPRA3AMP31 NEB (00:44)
[2020-12-31] MEDS ORDERED: HYOS-20 SL (00:44)
[2020-12-31] MEDS ORDERED: POTA-53 PO (00:44)
[2020-12-31] MEDS ORDERED: LORA-405 SL (00:44)
[2020-12-31] MEDS ORDERED: FURO-124 PO (00:44)
[2020-12-31] MEDS ORDERED: LISI10TA25 PO (00:44)
[2020-12-31] MEDS ORDERED: HYOSCYAMINE 0.125 MG (LEVSIN) TAB SL PRN (01:30)
[2020-12-31 04:55] VITALS: BP 140/83
[2020-12-31] MEDS: PIPERACILLIN/TAZO 4.5 GM/NS 100 ML IV SCH ×6 (05:21→21:04)
[2020-12-31] MEDS: morphine (ROXINOL) 10 MG/0.5 ML oral conc 0.5 ML PO PRN ×6 (05:36→21:10)
[2020-12-31] MEDS: RT-ALBUTEROL/IPRATROPIUM 3 ML (DUONEB) VIAL INH SCH ×4 (06:42→20:55)
[2020-12-31 07:43] VITALS: BP 121/77
[2020-12-31] MEDS: NICOTINE 21 MG (NICODERM) PATCH TD SCH (08:05)
[2020-12-31] MEDS: NICOTINE PATCH REMOVAL TP SCH (08:06)
[2020-12-31] MEDS: MAGNESIUM OXIDE (MAG-OX)400 MG TAB PO SCH ×2 (08:57→19:10)
[2020-12-31] MEDS: FOLIC ACID 1 MG TAB PO SCH (08:57)
[2020-12-31] MEDS: DOCUSATE SODIUM 100 MG (COLACE) CAP PO SCH ×2 (08:57→19:10)
[2020-12-31] MEDS: MULTIVIT W/MINERALS TAB (THERAGRAN M) PO SCH (08:57)
[2020-12-31] MEDS: lisINopril 10 MG (PRINIVIL) TABLET PO SCH (08:57)
[2020-12-31] MEDS: FUROSEMIDE 40 MG (LASIX) TAB PO SCH (08:57)
[2020-12-31] MEDS: THIAMINE 100 MG (VITAMIN B-1) TAB PO SCH (08:57)
[2020-12-31] MEDS: KCL 20 MEQ TAB (K-DUR) PO SCH (08:58)
[2020-12-31] MEDS: MICONAZOLE 2% POWDER (DESENEX AF) 90 GM TOP SCH ×2 (08:58→19:10)
--- NOTE | 2020-12-31 10:10 | Progress Note ---
Standard Progress Note Progress Notes/Assess & Plan Date Seen by a Provider: December 31, 2020 Time Seen by a Provider: 10:09 Progress/Assessment & Plan patient reports less pain today LLF-- less erythema and improved swelling. purulence expressed dorsally imp--improving LLF cellulitis. will follow no need for operative intervention currently BRIT REED MD December 31, 2020 10:10
[2020-12-31] MEDS ORDERED: POTA20TA15 PO (10:27)
[2020-12-31] MEDS ORDERED: LORA-405 PO (10:27)
--- NOTE | 2020-12-31 11:23 | History & Physical ---
HPI History of Present Illness: 60 yo F on hospice that was admitted for left finger cellulitis after cat bite. Patient states that she was bit by a cat last week and she didn't think anything of it because it hardly bled. Starting this week her finger started swelling and she was have purulent drainage and moderate pain. She was examined by hospice nurse and was sent to the ER. This AM patient's finger swelling and pain has mildly improved. She is having copious amounts of purulent drainage. She is unable to bend finger due to severe swelling. Dr Cueva in the examine patient and redress wound. Denies any fevers or chills. Source: patient Exam Limitations: no limitations Date seen by provider: December 31, 2020 Time Seen by Provider: 10:45 Attending Physician Desi Donnelly MD PCP Desi Donnelly MD Consult Date of Admission December 30, 2020 at 15:40 Home Medications Home Medications Reviewed patient Home Medication Reconciliation performed by pharmacy medication reconciliations geoscience technician and/or nursing. Patients Allergies have been reviewed. Allergies Coded Allergies: No Known Drug Allergies (Verified , 01/22/09) DIZ-Chwqzi-Wcpnbj Hx Patient Social History Drug of Choice: CANNIBUS Smoking Status: Current Everyday Smoker 2nd Hand Smoke Exposure: Yes Recent Hopitalizations: Yes Alcohol Use?: Yes Substance type: Misuse of prescript meds Tobacco type used: Cigarettes Immunizations Up To Date Tetanus Booster (TDap): Unknown Past Medical History CHF COPD Family Medical History Significant Family History: No Pertinent Family Hx Family History: Patient reports no known family medical history. Review of Systems (CHC) Constitutional: no symptoms reported; No chills, No fever EENTM: no symptoms reported; No mouth pain, No nose congestion, No nose pain Respiratory: dyspnea on exertion, orthopnea, short of breath Cardiovascular: No chest pain; edema; No palpitations Gastrointestinal: no symptoms reported; No abdominal pain, No constipation, No diarrhea, No loss of appetite, No nausea, No vomiting Genitourinary: no symptoms reported; No dysuria, No frequency, No hematuria : No Musculoskeletal: joint swelling, other (left finger and hand) Skin: other Psychiatric/Neurological: No Symptoms Reported Reviewed Test Results Reviewed Test Results Lab Laboratory Tests Test 12/30/20 14:50 Range/Units White Blood Count 14.6 H 4.3-11.0 10^3/uL Red Blood Count 4.26 3.80-5.11 10^6/uL Hemoglobin 14.6 11.5-16.0 g/dL Hematocrit 45 35-52 % Mean Corpuscular Volume 106 H 80-99 fL Mean Corpuscular Hemoglobin 34 25-34 pg Mean Corpuscular Hemoglobin Concent 32 32-36 g/dL Red Cell Distribution Width 13.5 10.0-14.5 % Platelet Count 369 130-400 10^3/uL Mean Platelet Volume 9.1 9.0-12.2 fL Immature Granulocyte % (Auto) 1 % Neutrophils (%) (Auto) 71 42-75 % Lymphocytes (%) (Auto) 18 12-44 % Monocytes (%) (Auto) 9 0-12 % Eosinophils (%) (Auto) 1 0-10 % Basophils (%) (Auto) 0 0-10 % Neutrophils # (Auto) 10.4 H 1.8-7.8 X 10^3 Lymphocytes # (Auto) 2.7 1.0-4.0 X 10^3 Monocytes # (Auto) 1.3 H 0.0-1.0 X 10^3 Eosinophils # (Auto) 0.1 0.0-0.3 10^3/uL Basophils # (Auto) 0.0 0.0-0.1 10^3/uL Immature Granulocyte # (Auto) 0.1 0.0-0.1 10^3/uL Neutrophils % (Manual) 68 % Lymphocytes % (Manual) 18 % Monocytes % (Manual) 8 % Eosinophils % (Manual) 1 % Reactive Lymphocytes 5 % Blood Morphology Comment NORMAL Sodium Level 137 135-145 MMOL/L Potassium Level 4.3 3.6-5.0 MMOL/L Chloride Level 100 98-107 MMOL/L Carbon Dioxide Level 19 L 21-32 MMOL/L Anion Gap 18 H 5-14 MMOL/L Blood Urea Nitrogen 8 7-18 MG/DL Creatinine 0.70 0.60-1.30 MG/DL Estimat Glomerular Filtration Rate > 60 BUN/Creatinine Ratio 11 Glucose Level 105 70-105 MG/DL Calcium Level 9.5 8.5-10.1 MG/DL Corrected Calcium 9.6 8.5-10.1 MG/DL Total Bilirubin 0.7 0.1-1.0 MG/DL Aspartate Amino Transf (AST/SGOT) 188 H 5-34 U/L Alanine Aminotransferase (ALT/SGPT) 76 H 0-55 U/L Alkaline Phosphatase 260 H 40-136 U/L Total Protein 8.7 H 6.4-8.2 GM/DL Albumin 3.9 3.2-4.5 GM/DL Serum Alcohol 239 H <10 MG/DL Physical Exam-(CHC) Physical Exam Vital Signs VS - Last 72 Hours, by Label 12/30/20 12/30/20 12/30/20 12/30/20 14:16 16:30 16:42 16:57 Temp 36.7 36.8 36.6 Pulse 107 101 114 Resp 20 20 18 B/P (MAP) 121/66 (84) 124/65 (84) 122/78 (93) Pulse Ox 95 95 92 O2 Delivery Room Air Room Air Room Air Room Air 12/30/20 12/30/20 12/30/20 12/30/20 17:46 19:39 19:45 20:59 Temp 36.7 36.6 Pulse 107 99 Resp 18 B/P (MAP) 113/68 (83) Pulse Ox 95 92 98 O2 Delivery Room Air Room Air Room Air FiO2 21 12/30/20 12/31/20 12/31/20 12/31/20 23:04 04:55 06:44 07:43 Temp 36.4 36.0 36.5 Pulse 93 84 83 Resp 18 18 20 B/P (MAP) 110/63 (79) 140/83 (102) 121/77 (92) Pulse Ox 91 94 98 93 O2 Delivery Room Air High Flow N/C High Flow N/C High Flow N/C O2 Flow Rate 8.00 9.00 4.00 12/31/20 12/31/20 08:00 10:56 Pulse Ox 92 98 O2 Delivery Nasal Cannula High Flow N/C O2 Flow Rate 2.00 4.00 Capillary Refill : Less Than 3 Seconds General Appearance: WD/WN, mild distress (with minimal exertion) Neck: non-tender, full range of motion, supple Respiratory: chest non-tender, respiratory distress, wheezing Cardiovascular: normal peripheral pulses, regular rate, rhythm, no murmur Gastrointestinal: normal bowel sounds, non tender, soft Back: no CVA tenderness, no vertebral tenderness Extremities: no calf tenderness, other (swelling and erythema of left middle finger with purulent drainage and ROM limited due to swelling and pain) Neurologic/Psychiatric: merchandise deliverer II-XII nml as tested, alert, oriented x 3 Skin: other Lymphatic: no adenopathy Assessment/Plan Assessment/Plan Admission Status: Inpatient Order (span 2 midnights) Reason for Inpatient Admission: Patient with critical finger swelling requiring antibiotics and possible evaluation for surgery (1) Cellulitis of finger of left hand Status: Acute Assessment & Plan: - Dr Cueva consulted, appreciate recommendations, Continue IV antibiotics and monitor for improvement prior to transition to PO antibiotics (2) Cat bite Status: Acute Qualifiers: Qualified Codes: W55.01XA - Bitten by cat, initial encounter (3) Alcohol abuse Status: Chronic Assessment & Plan: - Continue CIWS scoring, patient states that she drinks most days but amounts vary from 1-2 beers to 8-10 beers but she has days that she does not drink (4) Hospice care patient Status: Acute Copy Copies To 1: DESI DONNELLY MD, HOLLY R MD December 31, 2020 11:23
[2020-12-31 11:25] VITALS: BP 149/94
[2020-12-31 15:32] VITALS: BP 119/77
[2020-12-31 19:04] VITALS: BP 139/82
[2020-12-31] MEDS: LORazepam 0.5 MG (ATIVAN) TABLET SL PRN (21:04)
[2020-12-31 23:28] VITALS: BP 133/77
[2021-01-01 04:38] VITALS: BP 127/74
[2021-01-01] MEDS: PIPERACILLIN/TAZO 4.5 GM/NS 100 ML IV SCH ×6 (05:58→21:19)
[2021-01-01] MEDS: MULTIVIT W/MINERALS TAB (THERAGRAN M) PO SCH (06:03)
[2021-01-01] MEDS: KCL 20 MEQ TAB (K-DUR) PO SCH (06:03)
[2021-01-01] MEDS: THIAMINE 100 MG (VITAMIN B-1) TAB PO SCH (06:03)
[2021-01-01] MEDS: NICOTINE PATCH REMOVAL TP SCH (06:09)
[2021-01-01] MEDS: NICOTINE 21 MG (NICODERM) PATCH TD SCH (06:09)
[2021-01-01] MEDS: RT-ALBUTEROL/IPRATROPIUM 3 ML (DUONEB) VIAL INH SCH ×4 (06:41→18:20)
[2021-01-01 07:47] VITALS: BP 134/84
--- NOTE | 2021-01-01 08:10 | Progress Note ---
Standard Progress Note Progress Notes/Assess & Plan Date Seen by a Provider: January 01, 2021 Time Seen by a Provider: 08:09 Progress/Assessment & Plan patient reports less pain today LLF-- less erythema and improved swelling. purulence expressed dorsally imp--improving LLF cellulitis. will follow no need for operative intervention currently Final Diagnosis no complaints Vital Signs Date Time Temp Pulse Resp B/P (MAP) Pulse Ox O2 Delivery O2 Flow Rate FiO2 01/01/21 07:47 36.3 84 16 134/84 (101) 93 Nasal Cannula 4.00 01/01/21 06:42 99 High Flow N/C 8.00 01/01/21 04:38 36.5 77 20 127/74 (91) 98 Nasal Cannula 4.00 12/31/20 23:28 36.1 83 20 133/77 (95) 97 Nasal Cannula 4.00 12/31/20 20:56 100 High Flow N/C 8.00 12/31/20 19:10 Nasal Cannula 2.00 12/31/20 19:04 36.6 89 20 139/82 (101) 93 Nasal Cannula 4.00 12/31/20 15:32 36.4 93 18 119/77 (91) 97 Nasal Cannula 4.00 12/31/20 14:15 98 High Flow N/C 4.00 12/31/20 11:25 36.4 94 20 149/94 (112) 95 Nasal Cannula 3.00 12/31/20 10:56 98 High Flow N/C 4.00 I & O 01/01/21 07:00 Intake Total 2220 ml Output Total 2700 ml Balance -480 ml LLF--less purulence and erythema improving LLF cellulitis continue IV abx BRIT REED MD January 01, 2021 08:10
[2021-01-01] MEDS: MAGNESIUM OXIDE (MAG-OX)400 MG TAB PO SCH ×2 (08:26→20:15)
[2021-01-01] MEDS: FOLIC ACID 1 MG TAB PO SCH (08:26)
[2021-01-01] MEDS: lisINopril 10 MG (PRINIVIL) TABLET PO SCH (08:26)
[2021-01-01] MEDS: morphine (ROXINOL) 10 MG/0.5 ML oral conc 0.5 ML PO PRN ×3 (08:26→20:16)
[2021-01-01] MEDS: FUROSEMIDE 40 MG (LASIX) TAB PO SCH (08:26)
[2021-01-01] MEDS: DOCUSATE SODIUM 100 MG (COLACE) CAP PO SCH ×2 (08:26→20:01)
[2021-01-01] MEDS: MICONAZOLE 2% POWDER (DESENEX AF) 90 GM TOP SCH ×2 (09:20→20:16)
[2021-01-01] MEDS: HYDROcodone/APAP 5 MG/325 MG (LORTAB) TAB PO PRN ×3 (09:20→16:07)
--- NOTE | 2021-01-01 11:39 | Progress Note ---
Subjective Subjective/Events-last exam Patient feeling better. States that pain is well controlled. finger continue to drain purulent material. Review of Systems General: No Chills Pulmonary: Dyspnea, Cough Cardiovascular: No: Chest Pain, Palpitations Gastrointestinal: No: Nausea, Vomiting, Abdominal Pain, Diarrhea Musculoskeletal: hand pain Objective Exam Last Set of Vital Signs Vital Signs Date Time Temp Pulse Resp B/P (MAP) Pulse Ox O2 Delivery O2 Flow Rate FiO2 01/01/21 10:52 94 Room Air 01/01/21 08:00 2.00 01/01/21 07:47 36.3 84 16 134/84 (101) 12/30/20 17:46 21 Capillary Refill : Less Than 3 Seconds I&O Intake and Output 01/01/21 00:00 Intake Total 3630 ml Output Total 2200 ml Balance 1430 ml Intake Oral 1960 ml IV Total 1670 ml Output Urine Total 2200 ml # Voids 1 General: Alert, Oriented X3, Cooperative, Mild Distress (with minimal activity) Lungs: Other (increased work of breathing with activity, diminished breath sounds) Heart: Regular Rate, No Murmurs Extremities: Other (Left middle finger with swelling and erythema, draining purulent material) Neuro: Normal Speech, Sensation Intact Results/Procedures Lab Microbiology 12/30/20 Blood Culture - Preliminary, Resulted No growth 12/30/20 Gram Stain - Final, Resulted 12/30/20 Wound Culture - Preliminary, Resulted Pasteurella multocida See Comments Assessment/Plan Assessment/Plan (1) Cellulitis of finger of left hand Status: Acute Assessment & Plan: - Dr Cueva consulted, appreciate recommendations, Continue IV antibiotics and monitor for improvement prior to transition to PO antibiotics 01/01: Continue IV antibiotics and will transition to PO tomorrow and plan to d/c home tomorrow, patient on hospice services and they can manage dressing changes (2) Cat bite Status: Acute Qualifiers: Qualified Codes: W55.01XA - Bitten by cat, initial encounter (3) Alcohol abuse Status: Chronic Assessment & Plan: - Continue CIWS scoring, patient states that she drinks most days but amounts vary from 1-2 beers to 8-10 beers but she has days that she does not drink (4) Hospice care patient Status: Acute DESI KESSLER MD January 01, 2021 11:39
[2021-01-01 12:33] VITALS: BP 149/84
[2021-01-01 15:53] VITALS: BP 140/78
[2021-01-01 20:00] VITALS: BP 157/79
[2021-01-01] MEDS: LORazepam 0.5 MG (ATIVAN) TABLET SL PRN (20:16)
[2021-01-01 23:45] VITALS: BP 141/79
[2021-01-02] MEDS: morphine (ROXINOL) 10 MG/0.5 ML oral conc 0.5 ML PO PRN ×3 (01:29→09:22)
[2021-01-02 05:51] LABS: BASOPHILS # (AUTO) 0.1 10^3/uL (0.0-0.1); BASOPHILS % (AUTO) 1 % (0-10); EOSINOPHILS # (AUTO) 0.2 10^3/uL (0.0-0.3); EOSINOPHILS % (AUTO) 2 % (0-10); HEMATOCRIT 40 % (35-52); HEMOGLOBIN 12.8 g/dL (11.5-16.0); LYMPHOCYTES # (AUTO) 1.4 10^3/uL (1.0-4.0); LYMPHOCYTES % (AUTO) 12 % (12-44); MEAN CORPUSCULAR HEMOGLOBIN 34 pg (25-34); MEAN CORPUSCULAR HGB CONC 32 g/dL (32-36); MEAN CORPUSCULAR VOLUME 107 fL (80-99); MEAN PLATELET VOLUME 9.6 fL (9.0-12.2); MONOCYTES # (AUTO) 0.9 10^3/uL (0.0-1.0); MONOCYTES % (AUTO) 7 % (0-12); NEUTROPHILS # (AUTO) 9.3 10^3/uL (1.8-7.8); NEUTROPHILS % (AUTO) 78 % (42-75); PLATELET COUNT 344 10^3/uL (130-400)
[2021-01-02] MEDS: NICOTINE 21 MG (NICODERM) PATCH TD SCH (06:08)
[2021-01-02] MEDS: KCL 20 MEQ TAB (K-DUR) PO SCH (06:08)
[2021-01-02] MEDS: NICOTINE PATCH REMOVAL TP SCH (06:09)
[2021-01-02] MEDS: MULTIVIT W/MINERALS TAB (THERAGRAN M) PO SCH (06:11)
[2021-01-02] MEDS: THIAMINE 100 MG (VITAMIN B-1) TAB PO SCH (06:11)
[2021-01-02] MEDS: PIPERACILLIN/TAZO 4.5 GM/NS 100 ML IV SCH ×4 (06:13→16:54)
[2021-01-02] MEDS: RT-ALBUTEROL/IPRATROPIUM 3 ML (DUONEB) VIAL INH SCH (06:47)
[2021-01-02] MEDS: HYDROcodone/APAP 5 MG/325 MG (LORTAB) TAB PO PRN ×3 (06:48→14:16)
--- NOTE | 2021-01-02 07:04 | Progress Note ---
Standard Progress Note Progress Notes/Assess & Plan Date Seen by a Provider: January 02, 2021 Time Seen by a Provider: 07:03 Progress/Assessment & Plan patient reports less pain today LLF-- less erythema and improved swelling. purulence expressed dorsally imp--improving LLF cellulitis. will follow no need for operative intervention currently Final Diagnosis feeling better Vital Signs Date Time Temp Pulse Resp B/P (MAP) Pulse Ox O2 Delivery O2 Flow Rate FiO2 01/02/21 06:49 94 Room Air 01/01/21 23:45 36.4 78 20 141/79 (99) 98 High Flow N/C 3.00 01/01/21 20:00 36.7 85 18 157/79 (105) 91 Room Air 01/01/21 20:00 Room Air 01/01/21 18:21 93 Room Air 01/01/21 15:53 36.4 96 18 140/78 (98) 95 Room Air 01/01/21 14:49 94 Room Air 01/01/21 12:33 36.1 86 16 149/84 (105) 93 Nasal Cannula 4.00 01/01/21 10:52 94 Room Air 01/01/21 08:00 Nasal Cannula 2.00 01/01/21 07:47 36.3 84 16 134/84 (101) 93 Nasal Cannula 4.00 I & O 01/02/21 07:00 Intake Total 1400 ml Output Total 1100 ml Balance 300 ml Laboratory Tests Test 01/02/21 05:19 Range/Units White Blood Count 12.0 H 4.3-11.0 10^3/uL Red Blood Count 3.73 L 3.80-5.11 10^6/uL Hemoglobin 12.8 11.5-16.0 g/dL Hematocrit 40 35-52 % Mean Corpuscular Volume 107 H 80-99 fL Mean Corpuscular Hemoglobin 34 25-34 pg Mean Corpuscular Hemoglobin Concent 32 32-36 g/dL Red Cell Distribution Width 13.4 10.0-14.5 % Platelet Count 344 130-400 10^3/uL Mean Platelet Volume 9.6 9.0-12.2 fL Immature Granulocyte % (Auto) 1 % Neutrophils (%) (Auto) 78 H 42-75 % Lymphocytes (%) (Auto) 12 12-44 % Monocytes (%) (Auto) 7 0-12 % Eosinophils (%) (Auto) 2 0-10 % Basophils (%) (Auto) 1 0-10 % Neutrophils # (Auto) 9.3 H 1.8-7.8 10^3/uL Lymphocytes # (Auto) 1.4 1.0-4.0 10^3/uL Monocytes # (Auto) 0.9 0.0-1.0 10^3/uL Eosinophils # (Auto) 0.2 0.0-0.3 10^3/uL Basophils # (Auto) 0.1 0.0-0.1 10^3/uL Immature Granulocyte # (Auto) 0.1 0.0-0.1 10^3/uL LLF with improved erythema. Minimal purulence. No fluctuance Improved LLF cellulitis agree with change to PO abx and DC home BRIT REED MD January 02, 2021 07:04
[2021-01-02 08:00] VITALS: BP 144/99
[2021-01-02] MEDS: lisINopril 10 MG (PRINIVIL) TABLET PO SCH (09:22)
[2021-01-02] MEDS: FUROSEMIDE 40 MG (LASIX) TAB PO SCH (09:22)
[2021-01-02] MEDS: DOCUSATE SODIUM 100 MG (COLACE) CAP PO SCH ×2 (09:22→10:39)
[2021-01-02] MEDS: MAGNESIUM OXIDE (MAG-OX)400 MG TAB PO SCH (09:22)
[2021-01-02] MEDS: FOLIC ACID 1 MG TAB PO SCH (09:22)
[2021-01-02] MEDS: MICONAZOLE 2% POWDER (DESENEX AF) 90 GM TOP SCH (09:32)
--- NOTE | 2021-01-02 10:59 | Discharge Summary ---
Diagnosis/Chief Complaint Date of Admission December 30, 2020 at 15:40 Date of Discharge 01/02/21 Admission Diagnosis Admission Diagnosis See problem list Discharge Diagnosis See below Problems/Diagnosis: (1) Cellulitis of finger of left hand Assessment & Plan: - Dr Cueva consulted, appreciate recommendations, Continue IV antibiotics and monitor for improvement prior to transition to PO antibiotics 01/01: Continue IV antibiotics and will transition to PO tomorrow and plan to d/c home tomorrow, patient on hospice services and they can manage dressing changes 01/02: Transitioned to PO antibiotics for total course of 14 days Status: Acute (2) Cat bite Qualifiers: Qualified Codes: W55.01XA - Bitten by cat, initial encounter Status: Acute (3) Alcohol abuse Assessment & Plan: - Continue CIWS scoring, patient states that she drinks most days but amounts vary from 1-2 beers to 8-10 beers but she has days that she does not drink Status: Chronic (4) Hospice care patient Status: Acute Chief Complaint/HPI Chief Complaint/HPI 60 yo F on hospice that was admitted for left finger cellulitis after cat bite. Patient states that she was bit by a cat last week and she didn't think anything of it because it hardly bled. Starting this week her finger started swelling and she was have purulent drainage and moderate pain. She was examined by hospice nurse and was sent to the ER. This AM patient's finger swelling and pain has mildly improved. She is having copious amounts of purulent drainage. She is unable to bend finger due to severe swelling. Dr Cueva in the examine patient and redress wound. Denies any fevers or chills. Discharge Summary-Simple/Stand Consultations Dr Cueva: Ortho Discharge Physical Examination Allergies: Coded Allergies: No Known Drug Allergies (Verified , 01/22/09) Vitals & I&Os Vital Sign - Last 12Hours Date Time Temp Pulse Resp B/P (MAP) Pulse Ox O2 Delivery O2 Flow Rate FiO2 01/02/21 08:00 36.5 86 20 144/99 (114) 93 Room Air 01/01/21 23:45 3.00 12/30/20 17:46 21 Intake and Output 01/02/21 00:00 Intake Total 1050 ml Balance 1050 ml General Appearance: Alert, Oriented X3, Cooperative, No Acute Distress HEENT: Mucous Memb Moist/Arion Respiratory: Other (diminished breath sounds bilaterally) Cardiovascular: Regular Rate, No Murmurs Abdominal: Normal Bowel Sounds, Soft, No Tenderness, No Masses Extremities: Other (2+ pitting edema equal bilaterally) Neuro: Normal Speech, Strength at 5/5 X4 Ext, Sensation Intact, Cranial Nerves 3-12 NL Psych/Mental Status: Mental Status NL, Mood NL Hospital Course Was the Problem List Reviewed?: Yes See final discharge diagnosis. Discussion & Recommendations 60 yo F on hospice that was sent to ER by hospice nurse after getting bit by cat about a week ago. Patient has cellulitis and moderate swelling to left middle finger and hand. Started on IV antibiotics and redness and swelling improving. Patient sent home with PO antibioitics and will have nurse to help with wound care. Discharge Condition at discharge stable Instructions to patient/family Please see electronic discharge instructions given to patient. Discharge Medications Reviewed and agree with Discharge Medication list on patient's Discharge Instruction sheet Copy Copies To 1: DESI KESSLER MD, HOLLY R MD January 02, 2021 10:59
[2021-01-02] MEDS ORDERED: AMOX-358 PO (11:02)
--- NOTE | 2021-01-02 11:03 | Discharge Summary ---
Discharge [facility] Reconcile Patient Problems Problems Reviewed?: Yes Discharge Medications New, Converted or Re-Newed RX: Transmitted to Pharmacy New Medications: Amoxicillin/Potassium Clav (Augmentin 875-125 Tablet) 1 Each Tablet 1 EACH PO BID, #20 TAB Continued Medications: Docusate Sodium (Colace) 100 Mg Capsule 100 MG PO BID PRN for CONSTIPATION-1ST LINE, CAP Furosemide (Lasix) 40 Mg Tablet 40 MG PO DAILY, TAB Hyoscyamine Sulfate (Hyoscyamine Sulfate) 0.125 Mg Tablet 0.125 MG SL Q2H PRN for SECRETIONS, TAB Ipratropium/Albuterol Sulfate (Iprat-Albut 0.5-3(2.5) mg/3 ml) 3 Ml Ampul.neb 3 ML NEB QID, EACH Lisinopril (Lisinopril) 10 Mg Tablet 10 MG PO DAILY, TAB Lorazepam (Ativan) 1 Mg Tablet 1 MG PO Q4H PRN for ANXIETY,DYSPNEA, TAB Morphine Sulfate (Morphine Conc. 20mg/ml) 100 Mg/5 Ml Solution 0.5 ML PO Q15M PRN for PAINSEV , SOB, ML Potassium Chloride (Potassium Chloride) 20 Meq Tab.er.prt 40 MEQ PO DAILY, TAB TAKES 2 (20MEQ) TABS Patient Instructions Goal/Follow Up Appt: Home hospice patientErika will see patient upon arrival home Activity & Diet Discharge Diet: No Restrictions Activity as Tolerated: Yes DESI KESSLER MD January 02, 2021 11:03
== END 2021-01-02 17:20 | disposition home or self-care (01) | DRG 603 ==
LOC: EDUNIT# 14:08 → ER 14:10 → 4TH 15:40
PROVIDERS: ADMIT Family Medicine; ATTEND Family Medicine
DX: L03.012 Cellulitis of left finger (principal); W55.01XA Bitten by cat, initial encounter; I11.0 Hypertensive heart disease with heart failure; J44.9 Chronic obstructive pulmonary disease, unspecified; Z66 Do not resuscitate; F10.129 Alcohol abuse with intoxication, unspecified; F17.210 Nicotine dependence, cigarettes, uncomplicated; I50.9 Heart failure, unspecified; I25.2 Old myocardial infarction; Z86.73 Personal history of transient ischemic attack (TIA), and cerebral infarction without residual deficits
CPT/HCPCS: 36415; 80053; 80320; 85007; 85025; 85027; 87040; 87070; 87077; 87185; 87205; 90715; 94640; 94760